=== PATIENT | male | born 1985 | race American Indian/Alaskan Native ===

== ENCOUNTER 2018-12-27 10:54 | Emergency (ER) | payer OTHER ==
[2018-12-27 11:02] VITALS: BP 122/80
--- NOTE | 2018-12-27 11:23 | Emergency Department Report ---
ED Laceration HPI - HPI Chief Complaint: Wound/Laceration Stated Complaint: L ELBOW CUT Time Seen by Provider: 12/27/18 11:21 Occurred When: Today Location: Upper Extremity Severity: moderate Tetanus Status: Not up to Date Laceration Symptoms: No Foreign Body Sensation, No Numbness, No Weakness, No Pain Other History: hit by piece of metal at work. lac to L elbow. tetanus not UTD ED Review of Systems ROS: Stated complaint: L ELBOW CUT Other details as noted in HPI Comment: All other systems reviewed and negative ED Past Medical Hx - Past Medical History Previous Medical History?: No - Surgical History Past Surgical History?: No - Social History Smoking Status: Current Every Day Smoker Substance Use Type: Alcohol - Medications Home Medications: Home Medications Medication Instructions Recorded Confirmed Last Taken Type ALBUTEROL Inhaler (OR & NICU) 2 puff IH QID PRN #1 inhalation 02/06/14 Unknown Rx [ProAir HFA Inhaler] Azithromycin [Zithromax TAB] 500 mg PO QDAY #5 tablet 02/06/14 Unknown Rx guaiFENesin/CODEINE [Robitussin AC] 5 ml PO Q6H PRN #120 ml 02/06/14 Unknown Rx cephALEXin [Keflex] 500 mg PO Q8HR #21 cap 12/27/18 Unknown Rx Laceration Physical Exam - Exam General: Vital signs noted. No distress. Alert and acting appropriately. Wound Length (cm): 2 Laceration Location: Upper Extremity (L olecranon) Laceration Exam: Yes Normal Distal CMS, No Foreign Body, No Exposed Tendon, Vessel, or Nerve, No Tendon Injury ED Course Vital Signs 12/27/18 11:00 Temperature 98.7 F Pulse Rate 78 Respiratory 16 Rate Blood Pressure 122/80 [Right] - Laceration /Wound Repair L elbow Wound Location: upper extremity (L elbow) Wound Length (cm): 2 Wound's Depth, Shape: superficial, linear Wound Explored: clean Irrigated w/ Saline (ccs): 1,000 Betadine Prep?: Yes Anesthesia: Lidocaine w/ Epi Volume Anesthetic (ccs): 2 Wound Debrided: minimal Wound Repaired With: sutures Suture Size/Type: 4:0, proline Number of Sutures: 5 Layer Closure?: No Sterile Dressing Applied?: Yes Progress: tolerated well ED Medical Decision Making - Radiology Data Radiology results: image reviewed interpreted by me: abraham in L elbow - Medical Decision Making lac- imaging ordered neg as read by me fu pcp, 2w suture removal - Differential Diagnosis lac, fb Critical care attestation.: If time is entered above; I have spent that time in minutes in the direct care of this critically ill patient, excluding procedure time. ED Disposition Clinical Impression: Laceration Disposition: DC-01 TO HOME OR SELFCARE Is pt being admited?: No Condition: Good Instructions: Laceration (ED), Suture Care (ED) Prescriptions: cephALEXin [Keflex] 500 mg PO Q8HR #21 cap Referrals: [facility] [Other] - 3-5 Days Time of Disposition: 11:54
[2018-12-27] MEDS ORDERED: BOOSTRIX IM ONE (11:25)
[2018-12-27] MEDS ORDERED: XYLOCAINE 2%/ EPI 1:200,000 INFILTRATI ONE (11:38)
[2018-12-27] MEDS ORDERED: XYLOCAINE 1%/ EPI 1:100,000 INFILTRATI NR (12:00)
--- NOTE | 2018-12-27 12:08 | XRay Report ---
LEFT ELBOW, 3 views: History: Laceration from metal object. The bony architecture is intact without evidence of fracture or dislocation. Multiple tiny punctate foreign bodies are identified in the posterior medial soft tissues which is best demonstrated on the oblique image IMPRESSION: Multiple tiny foreign bodies in the posteromedial soft tissues. No osseous abnormality detected.
== END 2018-12-27 12:07 | disposition home or self-care (01) ==
LOC: ED 10:54
DX: S51.012A Laceration without foreign body of left elbow, initial encounter (principal); F17.200 Nicotine dependence, unspecified, uncomplicated; W45.8XXA Other foreign body or object entering through skin, initial encounter; Y93.89 Activity, other specified; Y92.69 Other specified industrial and construction area as the place of occurrence of the external cause; Y99.0 Civilian activity done for income or pay
CPT/HCPCS: 90471; 90715; 99283

== ENCOUNTER 2019-01-11 13:34 | Emergency (ER) | payer SELFPAY ==
--- NOTE | 2019-01-11 14:43 | Emergency Department Report ---
Suture/Staple Removal - HPI Chief Complaint: Laceration/Recheck/Suture Stated Complaint: REMOVE SUTURES Time Seen by Provider: 01/11/19 14:15 When Sutures or Simon Placed: 12/27/18 Wound Location: left elbow ED Review of Systems ROS: Stated complaint: REMOVE SUTURES Other details as noted in HPI Comment: All other systems reviewed and negative ED Past Medical Hx - Past Medical History Previous Medical History?: No - Surgical History Past Surgical History?: No - Social History Smoking Status: Current Every Day Smoker Substance Use Type: Alcohol - Medications Home Medications: Home Medications Medication Instructions Recorded Confirmed Last Taken Type ALBUTEROL Inhaler (OR & NICU) 2 puff IH QID PRN #1 inhalation 02/06/14 Unknown Rx [ProAir HFA Inhaler] Azithromycin [Zithromax TAB] 500 mg PO QDAY #5 tablet 02/06/14 Unknown Rx guaiFENesin/CODEINE [Robitussin AC] 5 ml PO Q6H PRN #120 ml 02/06/14 Unknown Rx cephALEXin [Keflex] 500 mg PO Q8HR #21 cap 12/27/18 Unknown Rx Suture Removal Exam - Exam General: Vital signs noted. No distress. Alert and acting appropriately. Wound: No Pathologic Erythema, No Tenderness, No Drainage, No Pus, No Wound Dehiscence Other Systems: All other systems reviewed and are unremarkable. left elbow with well healed laceration, it is clean, dry, intact without any signs of infection, no wound dehiscence, sutures in place, no erythema, no drainage, no TTP of the left elbow, FROM of the left elbow, neurovascularly intact ED Recheck MDM - Medical Decision Making Pt is a 33 yo male who presents to the ED for suture removal. He states that a piece of steel cut his arm while at work on 12/27 and he was evaluated in the ED and had sutures placed. He denies any issues. He denies any fever, drainage, pain. pt received a tetanus immunization on 12/27 per pt. he states he did not take any of the abx prescribed but did not have any issues at all. all sutures were removed, pt tolerated well, no bleeding, wound is well healed. Critical care attestation.: If time is entered above; I have spent that time in minutes in the direct care of this critically ill patient, excluding procedure time. ED Disposition Clinical Impression: Encounter for removal of sutures Disposition: DC-01 TO HOME OR SELFCARE Is pt being admited?: No Does the pt Need Aspirin: No Condition: Stable Instructions: Suture Removal (ED) Additional Instructions: Please continue to keep area clean and dry. follow up with a primary care doctor in the next 2-3 days. return to the emergency room for any new or worsening symptoms. Referrals: MICHEL HOUSER MD [Primary Care Provider] - 2-3 Days [facility] [Outside] - 2-3 Days Time of Disposition: 14:42 Print Language: UPPER SORBIAN
== END 2019-01-11 15:20 | disposition home or self-care (01) ==
LOC: ED 13:34
DX: Z48.01 Encounter for change or removal of surgical wound dressing (principal); Z53.21 Procedure and treatment not carried out due to patient leaving prior to being seen by health care provider

== ENCOUNTER 2021-02-05 15:11 | Inpatient (IN) | payer OTHER ==
[2021-02-05] MEDS ORDERED: SODIUM CHLORIDE 0.9% 500 ML 500 ML IV ONE (15:28)
--- NOTE | 2021-02-05 16:05 | XRay Report ---
CHEST 2 VIEWS INDICATION / CLINICAL INFORMATION: Possible sepsis. COMPARISON: None available. FINDINGS: SUPPORT DEVICES: None. HEART / MEDIASTINUM: No significant abnormality. LUNGS / PLEURA: No significant pulmonary abnormality. No significant pleural effusion. No pneumothora x. ADDITIONAL FINDINGS: No significant additional findings. IMPRESSION: 1. No acute abnormality of the chest. Signer Name: Marcial Willis MD Signed: 02/05/2021 4:01 PM Workstation Name: [id number]
[2021-02-05 16:10] LABS: Basophils # (Auto) 0.1 K/mm3 (0.0-0.1); Basophils % (Auto) 0.6 % (0.0-1.8); Eosinophils # (Auto) 0.1 K/mm3 (0.0-0.4); Eosinophils % (Auto) 0.5 % (0.0-4.3); Hematocrit 40.8 % (35.5-45.6); Hemoglobin 13.6 gm/dl (11.8-15.2); Lymphocytes # (Auto) 1.8 K/mm3 (1.2-5.4); Lymphocytes % (Auto) 11.9 % (13.4-35.0); Mean Corpuscular HGB Conc 33 % (32-34); Mean Corpuscular Volume 107 fl (84-94); Monocytes % (Auto) 6.5 % (0.0-7.3); Platelet Count 155 K/mm3 (140-440); Red Blood Count 3.81 M/mm3 (3.65-5.03); Red Cell Distribution Width 16.9 % (13.2-15.2)
[2021-02-05 16:33] LABS: INR 1.11 (0.87-1.13)
[2021-02-05 16:34] LABS: Alanine Aminotransferase 37 units/L (7-56); Albumin 4.1 g/dL (3.9-5); Blood Urea Nitrogen 5 mg/dL (9-20); Calcium 9.6 mg/dL (8.4-10.2); Hemolysis Index 17
[2021-02-05 16:39] LABS: BUN/Creatinine Ratio 17
[2021-02-05] MEDS ORDERED: cefTRIAXone/NS 1 GM/50 ML 1 GM/50 ML BAG IV ONE (17:07)
--- NOTE | 2021-02-05 17:09 | Emergency Department Report ---
ED Chest Pain HPI - General Chief Complaint: Chest Pain Stated Complaint: CHEST PAIN, SWOLLEN FEET FACE Time Seen by Provider: 02/05/21 16:24 Source: patient Mode of arrival: Wheelchair Limitations: No Limitations - History of Present Illness Initial Comments: This is a 35-year-old -[place] male who presents to the emergency department with multiple complaints. Patient has generalized chest discomfort, abdominal fullness and distention without significant pain, swelling of the face and feet, bilateral foot pain that have been going on for "a while." Overall the symptoms have been going on since late December but have worsened recently. The patient is a tobacco smoker but denies any illicit drug use. He does admit to daily alcohol use, but is currently working with his PCP to decrease his alcohol intake slowly and avoid any significant withdrawal. Patient says that he has been evaluated in the recent past by [facility] but does not know any particular diagnosis or the reason for his symptoms. He does admit to a history of peripheral neuropathy. The patient presented through triage with a low-grade fever of 100.2 F and some tachycardia with a heart rate of about 130 and a code sepsis was initiated. - Related Data Previous Rx's Medication Instructions Recorded Last Taken Type Albuterol Mdi (or & Nicu Only) 2 puff IH QID PRN #1 inhalation 02/06/14 Unknown Rx [ProAir HFA Inhaler] Azithromycin [Zithromax TAB] 500 mg PO QDAY #5 tablet 02/06/14 Unknown Rx guaiFENesin/CODEINE [Robitussin AC] 5 ml PO Q6H PRN #120 ml 02/06/14 Unknown Rx cephALEXin [Keflex] 500 mg PO Q8HR #21 cap 12/27/18 Unknown Rx Allergies Allergy/AdvReac Type Severity Reaction Status Date / Time No Known Allergies Allergy Verified 01/11/19 13:36 Heart Score - HEART Score History: Slightly suspicious EKG: Normal Age: < 45 Risk factors: 1-2 risk factors Troponin: < normal limit HEART Score: 1 - EKG Read Time Time EKG Completed: 15:29 EKG Read Time: 15:30 - Critical Actions Critical Actions: 0-3 pts:0.9-1.7%risk of adverse cardiac event.Candidate for discharge ED Review of Systems ROS: Stated complaint: CHEST PAIN, SWOLLEN FEET FACE Other details as noted in HPI ED Past Medical Hx - Past Medical History Previous Medical History?: No - Social History Smoking Status: Current Every Day Smoker Substance Use Type: Alcohol - Medications Home Medications: Home Medications Medication Instructions Recorded Confirmed Last Taken Type Albuterol Mdi (or & Nicu Only) 2 puff IH QID PRN #1 inhalation 02/06/14 Unknown Rx [ProAir HFA Inhaler] Azithromycin [Zithromax TAB] 500 mg PO QDAY #5 tablet 02/06/14 Unknown Rx guaiFENesin/CODEINE [Robitussin AC] 5 ml PO Q6H PRN #120 ml 02/06/14 Unknown Rx cephALEXin [Keflex] 500 mg PO Q8HR #21 cap 12/27/18 Unknown Rx ED Physical Exam - General Limitations: No Limitations - Other Other exam information: GENERAL: The patient is ill-appearing. HENT: Normocephalic. Atraumatic. Patient has moist mucous membranes. EYES: Extraocular motions are intact. Pupils equal reactive to light bilaterally. NECK: Supple. Trachea is midline. CHEST/LUNGS: Clear to auscultation. There is no respiratory distress noted. HEART/CARDIOVASCULAR: Regular. There is moderate tachycardia. There is no murmur. ABDOMEN: Abdomen is firm and distended, worse on the right side of the abdomen. No tenderness to palpation. Patient has normal bowel sounds. SKIN: Skin is warm and dry. There is some generalized but mild lower facial swelling. Some nonpitting swelling to the bilateral feet. NEURO: The patient appears sleepy but is easily arousable. He is a alert and oriented. The patient is cooperative. Cranial nerves II through XII grossly intact. Normal speech. MUSCULOSKELETAL: There is no tenderness or deformity. There is no limitation range of motion. ED Course Vital Signs 02/05/21 02/05/21 02/05/21 15:24 17:31 18:01 Temperature 100.2 F H Pulse Rate 130 H 115 H 116 H Respiratory 24 21 18 Rate Blood Pressure 148/91 145/90 Blood Pressure 130/86 [Right] O2 Sat by Pulse 96 93 93 Oximetry 02/05/21 02/05/21 02/05/21 18:31 18:48 19:01 Temperature Pulse Rate 114 H 110 H 118 H Respiratory 18 20 20 Rate Blood Pressure 148/91 142/64 135/94 Blood Pressure [Right] O2 Sat by Pulse 94 97 93 Oximetry NILE score - Nile Score Age > 65: (0) No Aspirin use within the Past 7 Days: (0) No 3 or more CAD Risk Factors: (0) No 2 or more Angina events in past 24 hrs: (1) Yes Known CAD with more than 50% Stenosis: (0) No Elevated Cardiac Markers: (0) No ST Deviation Greater than 0.5mm: (0) No NILE Score: 1 ED Medical Decision Making - Lab Data Result diagrams: 02/05/21 15:33 02/05/21 15:33 Lab Results 02/05/21 02/05/21 02/05/21 Range/Units 15:33 15:33 15:33 WBC 15.3 H (4.5-11.0) K/mm3 RBC 3.81 (3.65-5.03) M/mm3 Hgb 13.6 (11.8-15.2) gm/dl Hct 40.8 (35.5-45.6) % MCV 107 H (84-94) fl MCH 36 H (28-32) pg MCHC 33 (32-34) % RDW 16.9 H (13.2-15.2) % Plt Count 155 (140-440) K/mm3 Lymph % (Auto) 11.9 L (13.4-35.0) % Bureau % (Auto) 6.5 (0.0-7.3) % Eos % (Auto) 0.5 (0.0-4.3) % Baso % (Auto) 0.6 (0.0-1.8) % Lymph # (Auto) 1.8 (1.2-5.4) K/mm3 Bureau # (Auto) 1.0 H (0.0-0.8) K/mm3 Eos # (Auto) 0.1 (0.0-0.4) K/mm3 Baso # (Auto) 0.1 (0.0-0.1) K/mm3 Seg Neutrophils % 80.5 H (40.0-70.0) % Seg Neutrophils # 12.3 H (1.8-7.7) K/mm3 PT 14.9 (12.2-14.9) Sec. INR 1.11 (0.87-1.13) D-Dimer (0-234) ng/mlDDU VBG pH (7.320-7.420) Sodium 140 (137-145) mmol/L Potassium 3.6 (3.6-5.0) mmol/L Chloride 97.6 L (98-107) mmol/L Carbon Dioxide 24 (22-30) mmol/L Anion Gap 22 mmol/L BUN 5 L (9-20) mg/dL Creatinine 0.3 L (0.8-1.3) mg/dL Estimated GFR > 60 ml/min BUN/Creatinine Ratio 17 % Glucose 129 H (75-100) mg/dL Lactic Acid (0.7-2.0) mmol/L Calcium 9.6 (8.4-10.2) mg/dL Total Bilirubin 1.80 H (0.1-1.2) mg/dL AST 177 H (5-40) units/L ALT 37 (7-56) units/L Alkaline Phosphatase 433 H (35-129) units/L Troponin T < 0.010 (0.00-0.029) ng/mL NT-Pro-B Natriuret Pep (0-450) pg/mL Total Protein 7.9 (6.3-8.2) g/dL Albumin 4.1 (3.9-5) g/dL Albumin/Globulin Ratio 1.1 % Plasma/Serum Alcohol (0-0.07) % 02/05/21 02/05/21 02/05/21 Range/Units 15:33 15:33 15:33 WBC (4.5-11.0) K/mm3 RBC (3.65-5.03) M/mm3 Hgb (11.8-15.2) gm/dl Hct (35.5-45.6) % MCV (84-94) fl MCH (28-32) pg MCHC (32-34) % RDW (13.2-15.2) % Plt Count (140-440) K/mm3 Lymph % (Auto) (13.4-35.0) % Bureau % (Auto) (0.0-7.3) % Eos % (Auto) (0.0-4.3) % Baso % (Auto) (0.0-1.8) % Lymph # (Auto) (1.2-5.4) K/mm3 Bureau # (Auto) (0.0-0.8) K/mm3 Eos # (Auto) (0.0-0.4) K/mm3 Baso # (Auto) (0.0-0.1) K/mm3 Seg Neutrophils % (40.0-70.0) % Seg Neutrophils # (1.8-7.7) K/mm3 PT (12.2-14.9) Sec. INR (0.87-1.13) D-Dimer 153.28 (0-234) ng/mlDDU VBG pH 7.472 H (7.320-7.420) Sodium (137-145) mmol/L Potassium (3.6-5.0) mmol/L Chloride (98-107) mmol/L Carbon Dioxide (22-30) mmol/L Anion Gap mmol/L BUN (9-20) mg/dL Creatinine (0.8-1.3) mg/dL Estimated GFR ml/min BUN/Creatinine Ratio % Glucose (75-100) mg/dL Lactic Acid 2.90 H* (0.7-2.0) mmol/L Calcium (8.4-10.2) mg/dL Total Bilirubin (0.1-1.2) mg/dL AST (5-40) units/L ALT (7-56) units/L Alkaline Phosphatase (35-129) units/L Troponin T (0.00-0.029) ng/mL NT-Pro-B Natriuret Pep (0-450) pg/mL Total Protein (6.3-8.2) g/dL Albumin (3.9-5) g/dL Albumin/Globulin Ratio % Plasma/Serum Alcohol (0-0.07) % 02/05/21 02/05/21 02/05/21 Range/Units 15:33 18:02 19:09 WBC (4.5-11.0) K/mm3 RBC (3.65-5.03) M/mm3 Hgb (11.8-15.2) gm/dl Hct (35.5-45.6) % MCV (84-94) fl MCH (28-32) pg MCHC (32-34) % RDW (13.2-15.2) % Plt Count (140-440) K/mm3 Lymph % (Auto) (13.4-35.0) % Bureau % (Auto) (0.0-7.3) % Eos % (Auto) (0.0-4.3) % Baso % (Auto) (0.0-1.8) % Lymph # (Auto) (1.2-5.4) K/mm3 Bureau # (Auto) (0.0-0.8) K/mm3 Eos # (Auto) (0.0-0.4) K/mm3 Baso # (Auto) (0.0-0.1) K/mm3 Seg Neutrophils % (40.0-70.0) % Seg Neutrophils # (1.8-7.7) K/mm3 PT (12.2-14.9) Sec. INR (0.87-1.13) D-Dimer (0-234) ng/mlDDU VBG pH (7.320-7.420) Sodium (137-145) mmol/L Potassium (3.6-5.0) mmol/L Chloride (98-107) mmol/L Carbon Dioxide (22-30) mmol/L Anion Gap mmol/L BUN (9-20) mg/dL Creatinine (0.8-1.3) mg/dL Estimated GFR ml/min BUN/Creatinine Ratio % Glucose (75-100) mg/dL Lactic Acid 1.90 (0.7-2.0) mmol/L Calcium (8.4-10.2) mg/dL Total Bilirubin (0.1-1.2) mg/dL AST (5-40) units/L ALT (7-56) units/L Alkaline Phosphatase (35-129) units/L Troponin T (0.00-0.029) ng/mL NT-Pro-B Natriuret Pep 5.14 (0-450) pg/mL Total Protein (6.3-8.2) g/dL Albumin (3.9-5) g/dL Albumin/Globulin Ratio % Plasma/Serum Alcohol < 0.01 (0-0.07) % - EKG Data -: EKG Interpreted by De EKG shows normal: sinus rhythm, axis, intervals, QRS complexes, ST-T waves Rate: tachycardia (124 bpm) - EKG Data When compared to previous EKG there are: previous EKG unavailable Interpretation: other (Sinus tachycardia at 124 bpm, normal axis, normal intervals. No ST elevation OR) - Radiology Data Radiology results: report reviewed, image reviewed interpreted by me: Chest x-ray does not show any acute process. There are no pleural effusions, obvious pneumonia and there is no pneumothorax. CT ABDOMEN AND PELVIS WITH CONTRAST HISTORY: Abd pain and distention, abnormal LFTs, pain [id number] 100ml. COMPARISON: None. TECHNIQUE: CT images of the abdomen and pelvis were obtained following administration of intravenous contrast. All CT scans at this location are performed using CT dose reduction for ALARA by means of automated exposure control. CONTRAST: 100 ml of intravenous contrast administered. FINDINGS: Lungs/bones: There is mild patchy groundglass airspace disease throughout the lung bases and the right middle lobe. No acute osseous abnormality or malalignment. Abdomen/pelvis: There is marked hepatomegaly with moderate hepatic steatosis. No focal liver lesion identified. The gallbladder, spleen, pancreas, adrenals, kidneys, and proximal GI tract appear unremarkable. Urinary bladder and prostate are normal with no pelvic free fluid and no acute colonic abnormality identified. IMPRESSION: 1. Markedly hepatomegaly with moderate hepatic steatosis. 2. Patchy groundglass airspace disease in the lungs. Correlate for atypical infectious/inflammatory etiology. - Medical Decision Making This patient presents to the emergency department with a complaint of some chest pain, shortness of breath, facial and foot swelling, abdominal fullness and distention, some nausea with vomiting. On examination the patient appears tremulous. He is sleepy but easily arousable. Once awake he is oriented, AAO x3. No focal, motor or sensory deficits and his cranial nerves are intact. Patient does have a firm and distended abdomen, worst on the right side. There is some mild lower facial nonpitting swelling and some mild swelling to the feet. He does not appear in any respiratory distress. EKG does not have any morphology consistent ST elevation myocardial infarction. Chest x-ray does not show any pneumonia, pleural effusions, pneumothorax, focal consolidation, widened mediastinum, or any other acute process. The patient's labs shows some elevation in the AST, elevated bilirubin, elevated alk phos, a leukocytosis of 15,000, and an initial lactic acidosis. Patient had a CT scan of the abdomen and pelvis with IV contrast that shows severe hepatomegaly and hepatic steatosis. It was also read that the patient has some bilateral patchy groundglass opacities. The patient is a daily alcohol drinker. He was placed on the CIWA protocol and began receiving Ativan. However, the patient's withdrawal appears to have worsened during his ED course. The tachycardia remains. The patient is becoming more confused and has started to hallucinate. The patient has a CIWA score greater than 25. All this together is concerning for delirium tremens and the patient will be admitted to the ICU. Accepted for admission by the Dr. Holley flores. Critical Care Time: No Critical care attestation.: If time is entered above; I have spent that time in minutes in the direct care of this critically ill patient, excluding procedure time. ED Disposition Clinical Impression: Delirium tremens, Steatosis of liver Sepsis Qualifiers: Sepsis type: sepsis due to unspecified organism Sepsis acute organ dysfunction status: unspecified Qualified Code(s): A41.9 - Sepsis, unspecified organism Pneumonia Qualifiers: Pneumonia type: due to unspecified organism Laterality: unspecified laterality Lung location: unspecified part of lung Qualified Code(s): J18.9 - Pneumonia, unspecified organism Disposition: 09 OP ADMIT IP TO THIS HOSP Is pt being admited?: Yes Condition: Serious Instructions: Bacterial Pneumonia (ED) Time of Disposition: 18:50
[2021-02-05] MEDS: LORazepam 2 MG/ML VIAL IV PRN ×3 (18:09→21:13)
--- NOTE | 2021-02-05 18:43 | Cat Scan Report ---
CT ABDOMEN AND PELVIS WITH CONTRAST HISTORY: Abd pain and distention, abnormal LFTs, pain [id number] 100ml. COMPARISON: None. TECHNIQUE: CT images of the abdomen and pelvis were obtained following administration of intravenous contrast. All CT scans at this location are performed using CT dose reduction for ALARA by means of automated exposure control. CONTRAST: 100 ml of intravenous contrast administered. FINDINGS: Lungs/bones: There is mild patchy groundglass airspace disease throughout the lung bases and the rig ht middle lobe. No acute osseous abnormality or malalignment. Abdomen/pelvis: There is marked hepatomegaly with moderate hepatic steatosis. No focal liver lesion identified. The gallbladder, spleen, pancreas, adrenals, kidneys, and proximal GI tract appear unrema rkable. Urinary bladder and prostate are normal with no pelvic free fluid and no acute colonic abnormality id entified. IMPRESSION: 1. Markedly hepatomegaly with moderate hepatic steatosis. 2. Patchy groundglass airspace disease in the lungs. Correlate for atypical infectious/inflammatory e tiology. Signer Name: Timothy Glez MD Signed: 02/05/2021 6:39 PM Workstation Name: [id number]
[2021-02-05] MEDS ORDERED: AZITHROMYCIN/NS 500 MG/250 ML 500 MG/250 ML BAG IV ONE (18:48)
[2021-02-05] MEDS ORDERED: THIAMINE 100 MG, FOLIC ACID 1 MG, MULTIPLE VITAMIN INJ, ADULT 10 ML in SODIUM CHLORIDE ... IV ONE (19:10)
[2021-02-05] MEDS ORDERED: LORazepam 2 MG/ML VIAL IV PRN (20:03)
[2021-02-05] MEDS ORDERED: ALBUTEROL 8.5 GM MDI INHALATION IH PRN (20:31)
[2021-02-05] MEDS ORDERED: ACETAMINOPHEN 325 MG TAB PO PRN (20:32)
[2021-02-05] MEDS ORDERED: ONDANSETRON 4 MG/2 ML INJ IV PRN (20:32)
[2021-02-05] MEDS ORDERED: METOCLOPRAMIDE 10 MG/2 ML INJ IV PRN (20:33)
[2021-02-05] MEDS ORDERED: ALBUTEROL 2.5 MG/3 ML NEBU IH PRN (20:44)
[2021-02-05] MEDS ORDERED: D5W/0.9% NACL 1,000 ML IV SCH (21:00)
[2021-02-05] MEDS: FAMOTIDINE 20 MG/2 ML INJ IV SCH (22:10)
--- NOTE | 2021-02-06 07:07 | History and Physical Report ---
History of Present Illness Date of examination: 02/05/21 Date of admission: 02/05/21 18:50 Chief complaint: Chest discomfort, abdominal distention and shortness of breath for 3 to 4 days History of present illness: 35-year-old male with no significant past medical history comes in for chest tightness and shortness of breath and abdominal distention. Patient states is getting tired easily. Patient is being treated for peripheral neuropathy for bilateral foot pain. Patient is a regular smoker about half a pack a day. Patient had a low-grade fever of 100.2 and 70 during triage room. No exposure to coronavirus. - Past Medical History Previous Medical History?: No -surgical history - No - Social History Smoking Status: Current Every Day Smoker Substance Use Type: Alcohol use on a regular basis - Medications Home Medications: Home Medications Medication Instructions Recorded Confirmed Last Taken Type Albuterol Mdi (or & Nicu Only) 2 puff IH QID PRN #1 inhalation 02/06/14 Unknown Rx [ProAir HFA Inhaler] Azithromycin [Zithromax TAB] 500 mg PO QDAY #5 tablet 02/06/14 Unknown Rx guaiFENesin/CODEINE [Robitussin AC] 5 ml PO Q6H PRN #120 ml 02/06/14 Unknown Rx cephALEXin [Keflex] 500 mg PO Q8HR #21 cap 12/27/18 Unknown Rx Review of Systems ROS: Constitutional no weight loss or weight gain no fever or chills HEENT no sore throat no post nasal drip no diplopia Neck no neck stiffness no lymph gland enlargement Chest and lungs shortness of breath and chest tightness CVS no chest pain no diaphoresis no palpitations GI no nausea no vomiting no diarrhea Genitourinary system no dysuria no flank pain Musculoskeletal system no muscle pains no joint pains [employer] no syncope no seizures Skin no rash no itching Psychiatric no depression no homicidal or suicidal tendencies Hematologic no lymphedema or bruising Endocrine no polydipsia no polyuria no cold intolerance no heat intolerance Medications and Allergies Allergies Allergy/AdvReac Type Severity Reaction Status Date / Time No Known Allergies Allergy Verified 01/11/19 13:36 Home Medications Medication Instructions Recorded Confirmed Last Taken Type Albuterol Mdi (or & Nicu Only) 2 puff IH QID PRN #1 inhalation 02/06/14 Unknown Rx [ProAir HFA Inhaler] Azithromycin [Zithromax TAB] 500 mg PO QDAY #5 tablet 02/06/14 Unknown Rx guaiFENesin/CODEINE [Robitussin AC] 5 ml PO Q6H PRN #120 ml 02/06/14 Unknown Rx cephALEXin [Keflex] 500 mg PO Q8HR #21 cap 12/27/18 Unknown Rx Active Meds: Active Medications Acetaminophen (Acetaminophen 325 Mg Tab) 650 mg PO Q4H PRN PRN Reason: Pain MILD(1-3)/Fever >100.5/JOVEL Albuterol (Albuterol 2.5 Mg/3 Ml Nebu) 2.5 mg IH Q4HRT PRN PRN Reason: Shortness Of Breath Famotidine (Famotidine 20 Mg/2 Ml Inj) 20 mg IV BID [facility] Last Admin: 02/05/21 22:10 Dose: 20 mg Documented by: Dextrose/Sodium Chloride (D5ns) 1,000 mls @ 75 mls/hr IV DIRECT [facility] Stop: 02/06/21 08:00 Lorazepam (Lorazepam 2 Mg/Ml Vial) 2 mg IV Q1HR PRN PRN Reason: CIWA-Ar 8-15 Last Admin: 02/05/21 21:13 Dose: 2 mg Documented by: Metoclopramide HCl (Metoclopramide 10 Mg/2 Ml Inj) 10 mg IV Q6H PRN PRN Reason: Nausea And Vomiting Morphine Sulfate (Morphine 2 Mg/1 Ml Inj) 2 mg IV Q4H PRN PRN Reason: Pain, Moderate (4-6) Ondansetron HCl (Ondansetron 4 Mg/2 Ml Inj) 4 mg IV Q8H PRN PRN Reason: Nausea And Vomiting Sodium Chloride (Sodium Chloride 0.9% 10 Ml Flush Syringe) 10 ml IV BID [facility] Last Admin: 02/05/21 22:10 Dose: 10 ml Documented by: Sodium Chloride (Sodium Chloride 0.9% 10 Ml Flush Syringe) 10 ml IV PRN PRN PRN Reason: LINE FLUSH Exam - Constitutional Vitals: Temp Pulse Resp BP Pulse Ox 98.0 F 104 H 20 139/92 92 02/06/21 04:32 02/06/21 04:32 02/06/21 04:32 02/06/21 04:32 02/06/21 04:32 General appearance: Present: no acute distress, well-nourished - EENT Eyes: Present: PERRL ENT: hearing intact, clear oral mucosa - Neck Neck: Present: supple, normal ROM - Respiratory Respiratory effort: normal Respiratory: bilateral: CTA, rhonchi (Scattered) - Cardiovascular Heart rate: 78 Rhythm: regular Heart Sounds: Present: S1 & S2. Absent: rub, click - Extremities Extremities: pulses symmetrical, No edema Peripheral Pulses: within normal limits - Abdominal General gastrointestinal: Present: soft, non-tender, non-distended, normal bowel sounds Male genitourinary: Present: normal - Integumentary Integumentary: Present: clear, warm, dry - Musculoskeletal Musculoskeletal: gait normal, strength equal bilaterally - Psychiatric Psychiatric: appropriate mood/affect, intact judgment & insight - Neurologic Neurologic: CNII-XII intact, moves all extremities HEART Score - HEART Score EKG: Normal Age: < 45 Risk factors: 1-2 risk factors Troponin: Troponin T < 0.010 ng/mL (0.00-0.029) 02/05/21 15:33 Troponin: < normal limit - Critical Actions Critical Actions: 0-3 pts:0.9-1.7%risk of adverse cardiac event.Candidate for discharge Results - Labs CBC & Chem 7: 02/05/21 15:33 02/05/21 15:33 Labs: Laboratory Last Values WBC 15.3 K/mm3 (4.5-11.0) H 02/05/21 15:33 RBC 3.81 M/mm3 (3.65-5.03) 02/05/21 15:33 Hgb 13.6 gm/dl (11.8-15.2) 02/05/21 15:33 Hct 40.8 % (35.5-45.6) 02/05/21 15:33 MCV 107 fl (84-94) H 02/05/21 15:33 MCH 36 pg (28-32) H 02/05/21 15:33 MCHC 33 % (32-34) 02/05/21 15:33 RDW 16.9 % (13.2-15.2) H 02/05/21 15:33 Plt Count 155 K/mm3 (140-440) 02/05/21 15:33 Lymph % (Auto) 11.9 % (13.4-35.0) L 02/05/21 15:33 [place] % (Auto) 6.5 % (0.0-7.3) 02/05/21 15:33 Eos % (Auto) 0.5 % (0.0-4.3) 02/05/21 15:33 Baso % (Auto) 0.6 % (0.0-1.8) 02/05/21 15:33 Lymph # (Auto) 1.8 K/mm3 (1.2-5.4) 02/05/21 15:33 [place] # (Auto) 1.0 K/mm3 (0.0-0.8) H 02/05/21 15:33 Eos # (Auto) 0.1 K/mm3 (0.0-0.4) 02/05/21 15:33 Baso # (Auto) 0.1 K/mm3 (0.0-0.1) 02/05/21 15:33 Seg Neutrophils % 80.5 % (40.0-70.0) H 02/05/21 15:33 Seg Neutrophils # 12.3 K/mm3 (1.8-7.7) H 02/05/21 15:33 PT 14.9 Sec. (12.2-14.9) 02/05/21 15:33 INR 1.11 (0.87-1.13) 02/05/21 15:33 D-Dimer 153.28 ng/mlDDU (0-234) 02/05/21 15:33 VBG pH 7.472 (7.320-7.420) H 02/05/21 15:33 Sodium 140 mmol/L (137-145) 02/05/21 15:33 Potassium 3.6 mmol/L (3.6-5.0) 02/05/21 15:33 Chloride 97.6 mmol/L (98-107) L 02/05/21 15:33 Carbon Dioxide 24 mmol/L (22-30) 02/05/21 15:33 Anion Gap 22 mmol/L 02/05/21 15:33 BUN 5 mg/dL (9-20) L 02/05/21 15:33 Creatinine 0.3 mg/dL (0.8-1.3) L 02/05/21 15:33 Estimated GFR > 60 ml/min 02/05/21 15:33 BUN/Creatinine Ratio 17 % 02/05/21 15:33 Glucose 129 mg/dL (75-100) H 02/05/21 15:33 Lactic Acid 1.90 mmol/L (0.7-2.0) 02/05/21 18:02 Calcium 9.6 mg/dL (8.4-10.2) 02/05/21 15:33 Total Bilirubin 1.80 mg/dL (0.1-1.2) H 02/05/21 15:33 AST 177 units/L (5-40) H 02/05/21 15:33 ALT 37 units/L (7-56) 02/05/21 15:33 Alkaline Phosphatase 433 units/L (35-129) H 02/05/21 15:33 Troponin T < 0.010 ng/mL (0.00-0.029) 02/05/21 15:33 NT-Pro-B Natriuret Pep 5.14 pg/mL (0-450) 02/05/21 15:33 Total Protein 7.9 g/dL (6.3-8.2) 02/05/21 15:33 Albumin 4.1 g/dL (3.9-5) 02/05/21 15:33 Albumin/Globulin Ratio 1.1 % 02/05/21 15:33 Plasma/Serum Alcohol < 0.01 % (0-0.07) 02/05/21 19:09 Microbiology: Microbiology 02/05/21 15:33 Peripheral/Venous Blood Culture - Preliminary Culture in Progress 02/05/21 15:39 Peripheral/Venous Blood Culture - Preliminary Culture in Progress - Imaging and Cardiology Chest x-ray: report reviewed (No acute findings) Imaging and Cardiology: Abdominal CAT scan Marked hepatomegaly with moderate hepatic steatosis Patchy groundglass airspace disease in the lungs Correlate for atypical infectious/inflammatory etiology Assessment and Plan Advance Directives: Yes (Full code) VTE prophylaxis?: Chemical Plan of care discussed with patient/family: Yes - Patient Problems (1) Bilateral pneumonia Current Visit: Yes Status: Acute Plan to address problem: "Coronavirus pneumonia to be ruled out Bilateral pneumonia/pulmonary opacities on the abdominal CAT scan Coronavirus PCR IV Zithromax and IV ceftriaxone for now (2) Transaminitis Current Visit: Yes Status: Acute Plan to address problem: Secondary to EtOH use Hepatitis profile requested (3) EtOH dependence Current Visit: Yes Status: Chronic Qualifiers: Substance use status: uncomplicated Qualified Code(s): F10.20 - Alcohol dependence, uncomplicated Plan to address problem: Patient initiated on CIWA protocol (4) DVT prophylaxis Current Visit: Yes Status: Acute Plan to address problem: On heparin and GI prophylaxis
[2021-02-06] MEDS ORDERED: ALBUTEROL 8.5 GM MDI INHALATION IH PRN (07:21)
[2021-02-06 09:07] LABS: Basophils # (Auto) 0.1 K/mm3 (0.0-0.1); Basophils % (Auto) 1.2 % (0.0-1.8); Eosinophils # (Auto) 0.2 K/mm3 (0.0-0.4); Eosinophils % (Auto) 1.7 % (0.0-4.3); Hematocrit 39.5 % (35.5-45.6); Hemoglobin 13.4 gm/dl (11.8-15.2); Lymphocytes # (Auto) 2.6 K/mm3 (1.2-5.4); Lymphocytes % (Auto) 22.2 % (13.4-35.0); Mean Corpuscular HGB Conc 34 % (32-34); Mean Corpuscular Volume 105 fl (84-94); Monocytes # (Auto) 0.8 K/mm3 (0.0-0.8); Monocytes % (Auto) 6.8 % (0.0-7.3); Platelet Count 142 K/mm3 (140-440); Red Blood Count 3.77 M/mm3 (3.65-5.03); Red Cell Distribution Width 16.7 % (13.2-15.2)
[2021-02-06] MEDS: FAMOTIDINE 20 MG/2 ML INJ IV SCH ×2 (09:13→21:42)
[2021-02-06] MEDS: LORazepam 2 MG/ML VIAL IV PRN ×6 (09:14→22:44)
[2021-02-06] MEDS: HEPARIN 5,000 UNIT/1 ML VIAL SUB-Q SCH ×2 (09:15→21:42)
--- NOTE | 2021-02-06 09:15 | Electrocardiograph Report ---
[facility] Test Date: 2021-02-05 Test Time: 15:29:02 Pat Name: SULAIMAN BRIAN Department: Room: A489 1 Gender: M Content Management Specialist: BEREKET : 1985 Requested By: ERIC ROSE Order Number: [id number] Reading MD: Luke Prieto Measurements Intervals [place] Rate: 124 P: 45 MI: 147 QRS: 71 QRSD: 79 T: 24 QT: 312 QTc: 448 Interpretive Statements Sinus tachycardia Probable left atrial enlargement nonspecific st-t No previous ECG available for comparison Electronically Signed On 02-06-2021 9:15:00 EDT by Luke Prieto
--- NOTE | 2021-02-06 09:38 | Progress Note ---
Assessment and Plan Assessment and plan: 35-year-old -Greek male with a past medical history of alcohol dependence who presents with bilateral pneumonia. Bilateral pneumonia, treat committee acquired pneumonia versus aspiration pne umonia Current Visit: Yes Status: Acute Plan to address problem: IV Zithromax and IV ceftriaxone for now PUI Covid pending Hepatic steatosis Most likely secondary to alcohol use INR normal Hepatitis panel pending Transaminitis Current Visit: Yes Status: Acute Plan to address problem: Secondary to EtOH use Hepatitis profile requested EtOH dependence Current Visit: Yes Status: Chronic Qualifiers: Substance use status: uncomplicated Qualified Code(s): F10.20 - Alcohol d ependence, uncomplicated Plan to address problem: Patient initiated on CIWA protocol DVT prophylaxis Current Visit: Yes Status: Acute Plan to address problem: On heparin and GI prophylaxis Disposition: Continue to treat pneumonia with IV antibiotics, treat for alcohol withdrawal. Anticipate discharge within 48 hours. History Interval history: 02/06/2021: Patient seen and examined, seems little bit confused, no signs of alcohol withdrawal at this time, denies any hallucinations Hospitalist Physical - Physical exam Narrative exam: General appearance: no acute distress, well-nourished EENT: PERRL, EOM intact, hearing intact, clear oral mucosa Neck: Present: supple, normal ROM Respiratory: bilateral CTA, negative: rales, rhonchi, wheezing Cardiovascular: Regular rate/rhythm, Normal S1 & S2. No gallop, rub Extremities: no ischemia, No edema in lower extremities, normal temperature, normal color, Full ROM Abdominal: soft, no tenderness, mild distention of abdomen, no fluid wave, normal bowel sounds Integumentary: Present: clear, warm, dry no wounds, no erythema noted Psychiatric: appropriate mood/affect, poor judgment & insight Neurologic: CNII-XII intact, moves all extremities, no sensory or motor abnormalities - Constitutional Vitals: Temp Pulse Resp BP Pulse Ox 99.0 F 99 H 19 145/97 95 02/06/21 07:41 02/06/21 07:41 02/06/21 07:41 02/06/21 07:41 02/06/21 07:41 HEART Score - HEART Score EKG: Normal Age: < 45 Risk factors: 1-2 risk factors Troponin: Troponin T < 0.010 ng/mL (0.00-0.029) 02/05/21 15:33 Troponin: < normal limit - Critical Actions Critical Actions: 0-3 pts:0.9-1.7%risk of adverse cardiac event.Candidate for discharge Results - Labs CBC & Chem 7: 02/06/21 08:47 02/05/21 15:33 Labs: Laboratory Last Values WBC 11.7 K/mm3 (4.5-11.0) H 02/06/21 08:47 RBC 3.77 M/mm3 (3.65-5.03) 02/06/21 08:47 Hgb 13.4 gm/dl (11.8-15.2) 02/06/21 08:47 Hct 39.5 % (35.5-45.6) 02/06/21 08:47 MCV 105 fl (84-94) H 02/06/21 08:47 MCH 36 pg (28-32) H 02/06/21 08:47 MCHC 34 % (32-34) 02/06/21 08:47 RDW 16.7 % (13.2-15.2) H 02/06/21 08:47 Plt Count 142 K/mm3 (140-440) 02/06/21 08:47 Lymph % (Auto) 22.2 % (13.4-35.0) 02/06/21 08:47 [place] % (Auto) 6.8 % (0.0-7.3) 02/06/21 08:47 Eos % (Auto) 1.7 % (0.0-4.3) 02/06/21 08:47 Baso % (Auto) 1.2 % (0.0-1.8) 02/06/21 08:47 Lymph # (Auto) 2.6 K/mm3 (1.2-5.4) 02/06/21 08:47 [place] # (Auto) 0.8 K/mm3 (0.0-0.8) 02/06/21 08:47 Eos # (Auto) 0.2 K/mm3 (0.0-0.4) 02/06/21 08:47 Baso # (Auto) 0.1 K/mm3 (0.0-0.1) 02/06/21 08:47 Seg Neutrophils % 68.1 % (40.0-70.0) 02/06/21 08:47 Seg Neutrophils # 8.0 K/mm3 (1.8-7.7) H 02/06/21 08:47 PT 14.9 Sec. (12.2-14.9) 02/05/21 15:33 INR 1.11 (0.87-1.13) 02/05/21 15:33 D-Dimer 153.28 ng/mlDDU (0-234) 02/05/21 15:33 VBG pH 7.472 (7.320-7.420) H 02/05/21 15:33 Sodium 140 mmol/L (137-145) 02/05/21 15:33 Potassium 3.6 mmol/L (3.6-5.0) 02/05/21 15:33 Chloride 97.6 mmol/L (98-107) L 02/05/21 15:33 Carbon Dioxide 24 mmol/L (22-30) 02/05/21 15:33 Anion Gap 22 mmol/L 02/05/21 15:33 BUN 5 mg/dL (9-20) L 02/05/21 15:33 Creatinine 0.3 mg/dL (0.8-1.3) L 02/05/21 15:33 Estimated GFR > 60 ml/min 02/05/21 15:33 BUN/Creatinine Ratio 17 % 02/05/21 15:33 Glucose 129 mg/dL (75-100) H 02/05/21 15:33 Hemoglobin A1c 4.4 % (4-6) 02/06/21 08:47 Lactic Acid 1.90 mmol/L (0.7-2.0) 02/05/21 18:02 Calcium 9.6 mg/dL (8.4-10.2) 02/05/21 15:33 Total Bilirubin 1.80 mg/dL (0.1-1.2) H 02/05/21 15:33 AST 177 units/L (5-40) H 02/05/21 15:33 ALT 37 units/L (7-56) 02/05/21 15:33 Alkaline Phosphatase 433 units/L (35-129) H 02/05/21 15:33 Troponin T < 0.010 ng/mL (0.00-0.029) 02/05/21 15:33 NT-Pro-B Natriuret Pep 5.14 pg/mL (0-450) 02/05/21 15:33 Total Protein 7.9 g/dL (6.3-8.2) 02/05/21 15:33 Albumin 4.1 g/dL (3.9-5) 02/05/21 15:33 Albumin/Globulin Ratio 1.1 % 02/05/21 15:33 Plasma/Serum Alcohol < 0.01 % (0-0.07) 02/05/21 19:09 Microbiology: Microbiology 02/05/21 15:33 Peripheral/Venous Blood Culture - Preliminary Culture in Progress 02/05/21 15:39 Peripheral/Venous Blood Culture - Preliminary Culture in Progress Active Medications - Current Medications Current Medications: Generic Name Dose Route Start Last Admin Trade Name Freq PRN Reason Stop Dose Admin Acetaminophen 650 mg 02/05/21 20:32 Acetaminophen 325 Mg Tab PO Q4H PRN Pain MILD(1-3)/Fever >100.5/JOVEL Albuterol 2.5 mg 02/05/21 20:44 Albuterol 2.5 Mg/3 Ml Nebu IH Q4HRT PRN Shortness Of Breath Famotidine 20 mg 02/05/21 22:00 02/06/21 09:13 Famotidine 20 Mg/2 Ml Inj IV 20 mg BID ARMIN Administration Heparin Sodium (Porcine) 5,000 unit 02/06/21 10:00 02/06/21 09:15 Heparin 5,000 Unit/1 Ml Vial SUB-Q 5,000 unit Q12HR ARMIN Administration Azithromycin 500 mg in 250 mls @ 250 mls/hr 02/06/21 19:00 Zithromax/Ns IV Q24H [facility] Ceftriaxone Sodium 2 gm in 100 mls @ 200 mls/hr 02/06/21 18:00 Rocephin/Ns 2 Gm/100 Ml IV Q24H [facility] Protocol Lorazepam 2 mg 02/05/21 17:33 02/06/21 09:14 Lorazepam 2 Mg/Ml Vial IV 2 mg Q1HR PRN Administration JEAN-CLAUDE-Armando 8-15 Metoclopramide HCl 10 mg 02/05/21 20:33 Metoclopramide 10 Mg/2 Ml Inj IV Q6H PRN Nausea And Vomiting Morphine Sulfate 2 mg 02/05/21 20:33 Morphine 2 Mg/1 Ml Inj IV Q4H PRN Pain, Moderate (4-6) Ondansetron HCl 4 mg 02/05/21 20:32 Ondansetron 4 Mg/2 Ml Inj IV Q8H PRN Nausea And Vomiting Sodium Chloride 10 ml 02/05/21 22:00 02/06/21 09:18 Sodium Chloride 0.9% 10 Ml Flush Syringe IV 10 ml BID ARMIN Administration Sodium Chloride 10 ml 02/05/21 20:32 Sodium Chloride 0.9% 10 Ml Flush Syringe IV PRN PRN LINE FLUSH
[2021-02-06 09:47] LABS: Alanine Aminotransferase 30 units/L (7-56); Albumin 3.9 g/dL (3.9-5); Blood Urea Nitrogen 3 mg/dL (9-20); Calcium 9.9 mg/dL (8.4-10.2); Hemolysis Index 5
[2021-02-06 09:51] LABS: Hepatitis B Surface Antigen Non-Reactive (Negative); Hepatitis C Virus Antibody Non-Reactive (NonReactive)
[2021-02-06 09:53] LABS: BUN/Creatinine Ratio 8
[2021-02-06 12:10] LABS: Bilirubin,Urine NEG (Negative); Blood,Urine NEG (Negative); Color,Urine Yellow (Yellow); Protein,Urine <15 mg/dL mg/dL (Negative)
[2021-02-06 13:48] LABS: WBC,Urine < 1.0 /HPF (0.0-6.0)
[2021-02-06] MEDS: cefTRIAXone/NS 2 GM/100 ML 2 GM/100 ML BAG IV SCH (17:02)
[2021-02-06] MEDS ORDERED: AZITHROMYCIN/NS 500 MG/250 ML 500 MG/250 ML BAG IV SCH (19:00)
[2021-02-07] MEDS: LORazepam 2 MG/ML VIAL IV PRN ×8 (00:19→21:33)
[2021-02-07] MEDS ORDERED: ZIPRASIDONE MESYLATE 20 MG VIAL IM ONE ×2 (02:17→22:27)
[2021-02-07 07:06] LABS: Alanine Aminotransferase 30 units/L (7-56); Albumin 3.5 g/dL (3.9-5); Blood Urea Nitrogen 3 mg/dL (9-20); Calcium 9.4 mg/dL (8.4-10.2); Hemolysis Index 24
[2021-02-07 07:28] LABS: BUN/Creatinine Ratio 10
[2021-02-07] MEDS: FAMOTIDINE 20 MG/2 ML INJ IV SCH ×2 (09:23→21:20)
[2021-02-07] MEDS: HEPARIN 5,000 UNIT/1 ML VIAL SUB-Q SCH ×2 (09:24→21:20)
[2021-02-07] MEDS ORDERED: AZITHROMYCIN 250 MG TAB PO SCH (10:00)
[2021-02-07] MEDS ORDERED: chlordiazePOXIDE 25 MG CAP PO PRN ×2 (10:04)
--- NOTE | 2021-02-07 10:25 | Progress Note ---
Assessment and Plan Assessment and plan: 35-year-old -[place] male with a past medical history of alcohol dependence who presents with bilateral pneumonia. Acute encephalopathy secondary to possible alcohol withdrawal CIWA protocol Ammonia level Syphilis pending Librium p.o. if the patient is able to tolerate p.o. B12, folic acid, magnesium level pending Bilateral pneumonia, treat committee acquired pneumonia versus aspiration pneumonia Current Visit: Yes Status: Acute Plan to address problem: IV Zithromax and IV ceftriaxone for now Patient is Covid negative Hepatic steatosis Most likely secondary to alcohol use INR normal Hepatitis panel normal Elevated lactic acidosis Resolved Bicarb is low Sodium bicarb fluids Pending lactic acid Transaminitis Current Visit: Yes Status: Acute Plan to address problem: Secondary to EtOH use Hepatitis normal Currently downtrending EtOH dependence Current Visit: Yes Status: Chronic Qualifiers: Substance use status: uncomplicated Qualified Code(s): F10.20 - Alcohol dependence, uncomplicated Plan to address problem: Patient initiated on CIWA protocol DVT prophylaxis Current Visit: Yes Status: Acute Plan to address problem: On heparin and GI prophylaxis Disposition: Patient seems to be withdrawing from alcohol, continue CIWA protoco l, monitor for DTs, attempted to contact family, unable to do so. History Interval history: 02/06/2021: Patient seen and examined, seems little bit confused, no signs of alcohol withdrawal at this time, denies any hallucinations 02/07/2021: Patient seen and examined, nonpurposeful lower and upper extremity movements, patient is confused, patient minimally verbal, seems to be withdrawing from alcohol. Patient was given 2 mg of Ativan this morning. Attempted to call family, no answer. Hospitalist Physical - Physical exam Narrative exam: General appearance: no acute distress, well-nourished EENT: PERRL, EOM intact, hearing intact, clear oral mucosa Respiratory: bilateral CTA, negative: rales, rhonchi, wheezing Cardiovascular: Regular rate/rhythm, Normal S1 & S2. No gallop, rub Extremities: no ischemia, No edema in lower extremities, normal temperature, normal color, Full ROM Abdominal: soft, no tenderness, mild distention of abdomen, no fluid wave, normal bowel sounds Integumentary: Present: clear, warm, dry no wounds, no erythema noted Neurologic: CNII-XII intact, nonpurposeful upper and lower extremity movements, lethargic, confused - Constitutional Vitals: Temp Pulse Resp BP Pulse Ox 99.3 F 96 H 20 140/85 93 02/07/21 07:22 02/07/21 07:22 02/07/21 09:39 02/07/21 07:22 02/07/21 07:22 HEART Score - HEART Score EKG: Normal Age: < 45 Risk factors: 1-2 risk factors Troponin: Troponin T < 0.010 ng/mL (0.00-0.029) 02/05/21 15:33 Troponin: < normal limit - Critical Actions Critical Actions: 0-3 pts:0.9-1.7%risk of adverse cardiac event.Candidate for discharge Results - Labs CBC & Chem 7: 02/06/21 08:47 02/07/21 05:17 Labs: Laboratory Last Values WBC 11.7 K/mm3 (4.5-11.0) H 02/06/21 08:47 RBC 3.77 M/mm3 (3.65-5.03) 02/06/21 08:47 Hgb 13.4 gm/dl (11.8-15.2) 02/06/21 08:47 Hct 39.5 % (35.5-45.6) 02/06/21 08:47 MCV 105 fl (84-94) H 02/06/21 08:47 MCH 36 pg (28-32) H 02/06/21 08:47 MCHC 34 % (32-34) 02/06/21 08:47 RDW 16.7 % (13.2-15.2) H 02/06/21 08:47 Plt Count 142 K/mm3 (140-440) 02/06/21 08:47 Lymph % (Auto) 22.2 % (13.4-35.0) 02/06/21 08:47 [place] % (Auto) 6.8 % (0.0-7.3) 02/06/21 08:47 Eos % (Auto) 1.7 % (0.0-4.3) 02/06/21 08:47 Baso % (Auto) 1.2 % (0.0-1.8) 02/06/21 08:47 Lymph # (Auto) 2.6 K/mm3 (1.2-5.4) 02/06/21 08:47 [place] # (Auto) 0.8 K/mm3 (0.0-0.8) 02/06/21 08:47 Eos # (Auto) 0.2 K/mm3 (0.0-0.4) 02/06/21 08:47 Baso # (Auto) 0.1 K/mm3 (0.0-0.1) 02/06/21 08:47 Seg Neutrophils % 68.1 % (40.0-70.0) 02/06/21 08:47 Seg Neutrophils # 8.0 K/mm3 (1.8-7.7) H 02/06/21 08:47 PT 14.9 Sec. (12.2-14.9) 02/05/21 15:33 INR 1.11 (0.87-1.13) 02/05/21 15:33 D-Dimer 153.28 ng/mlDDU (0-234) 02/05/21 15:33 VBG pH 7.472 (7.320-7.420) H 02/05/21 15:33 Sodium 136 mmol/L (137-145) L 02/07/21 05:17 Potassium 4.1 mmol/L (3.6-5.0) 02/07/21 05:17 Chloride 97.4 mmol/L (98-107) L 02/07/21 05:17 Carbon Dioxide 19 mmol/L (22-30) L D 02/07/21 05:17 Anion Gap 24 mmol/L 02/07/21 05:17 BUN 3 mg/dL (9-20) L 02/07/21 05:17 Creatinine 0.3 mg/dL (0.8-1.3) L 02/07/21 05:17 Estimated GFR > 60 ml/min 02/07/21 05:17 BUN/Creatinine Ratio 10 % 02/07/21 05:17 Glucose 77 mg/dL (75-100) 02/07/21 05:17 Hemoglobin A1c 4.4 % (4-6) 02/06/21 08:47 Lactic Acid 1.90 mmol/L (0.7-2.0) 02/05/21 18:02 Calcium 9.4 mg/dL (8.4-10.2) 02/07/21 05:17 Total Bilirubin 1.50 mg/dL (0.1-1.2) H 02/07/21 05:17 AST 119 units/L (5-40) H 02/07/21 05:17 ALT 30 units/L (7-56) 02/07/21 05:17 Alkaline Phosphatase 345 units/L (35-129) H 02/07/21 05:17 Troponin T < 0.010 ng/mL (0.00-0.029) 02/05/21 15:33 NT-Pro-B Natriuret Pep 5.14 pg/mL (0-450) 02/05/21 15:33 Total Protein 7.4 g/dL (6.3-8.2) 02/07/21 05:17 Albumin 3.5 g/dL (3.9-5) L 02/07/21 05:17 Albumin/Globulin Ratio 0.9 % 02/07/21 05:17 Urine Color Yellow (Yellow) 02/06/21 11:55 Urine Turbidity Clear (Clear) 02/06/21 11:55 Urine pH 8.0 (5.0-7.0) H 02/06/21 11:55 Ur Specific [place] 1.012 (1.003-1.030) 02/06/21 11:55 Urine Protein <15 mg/dl mg/dL (Negative) 02/06/21 11:55 Urine Glucose (UA) Neg mg/dL (Negative) 02/06/21 11:55 Urine Ketones Neg mg/dL (Negative) 02/06/21 11:55 Urine Blood Neg (Negative) 02/06/21 11:55 Urine Nitrite Neg (Negative) 02/06/21 11:55 Urine Bilirubin Neg (Negative) 02/06/21 11:55 Urine Urobilinogen 4.0 mg/dL (<2.0) 02/06/21 11:55 Ur Leukocyte Esterase Neg (Negative) 02/06/21 11:55 Urine WBC (Auto) < 1.0 /HPF (0.0-6.0) 02/06/21 11:55 Urine RBC (Auto) 1.0 /HPF (0.0-6.0) 02/06/21 11:55 U Epithel Cells (Auto) < 1.0 /HPF (0-13.0) 02/06/21 11:55 Plasma/Serum Alcohol < 0.01 % (0-0.07) 02/05/21 19:09 Coronavirus (PCR) Negative (Negative) 02/06/21 Unknown Hepatitis A IgM Ab Non-reactive (NonReactive) 02/06/21 08:47 Hep Bs Antigen Non-reactive (Negative) 02/06/21 08:47 Hep B Core IgM Ab Non-reactive (NonReactive) 02/06/21 08:47 Hepatitis C Antibody Non-reactive (NonReactive) 02/06/21 08:47 Microbiology: Microbiology 02/05/21 15:33 Peripheral/Venous Blood Culture - Preliminary NO GROWTH AFTER 24 HOURS 02/05/21 15:39 Peripheral/Venous Blood Culture - Preliminary NO GROWTH AFTER 24 HOURS [place]/IV: Voiding Method Condom Catheter Active Medications - Current Medications Current Medications: Generic Name Dose Route Start Last Admin Trade Name Freq PRN Reason Stop Dose Admin Acetaminophen 650 mg 02/05/21 20:32 Acetaminophen 325 Mg Tab PO Q4H PRN Pain MILD(1-3)/Fever >100.5/JOVEL Albuterol 2.5 mg 02/05/21 20:44 Albuterol 2.5 Mg/3 Ml Nebu IH Q4HRT PRN Shortness Of Breath Azithromycin 500 mg 02/07/21 10:00 02/07/21 09:23 Azithromycin 250 Mg Tab PO 02/10/21 10:01 500 mg QDAY ARMIN Administration Protocol Chlordiazepoxide HCl 50 mg 02/07/21 10:04 Chlordiazepoxide 25 Mg Cap PO Q1H PRN CIWA-Ar 8-15 Chlordiazepoxide HCl 100 mg 02/07/21 10:04 Chlordiazepoxide 25 Mg Cap PO Q1H PRN CIWA-Ar 16-25 Famotidine 20 mg 02/05/21 22:00 02/07/21 09:23 Famotidine 20 Mg/2 Ml Inj IV 20 mg BID ARMIN Administration Heparin Sodium (Porcine) 5,000 unit 02/06/21 10:00 02/07/21 09:24 Heparin 5,000 Unit/1 Ml Vial SUB-Q 5,000 unit Q12HR ARMIN Administration Ceftriaxone Sodium 2 gm in 100 mls @ 200 mls/hr 02/06/21 18:00 02/06/21 17:02 Rocephin/Ns 2 Gm/100 Ml IV 02/10/21 18:29 200 mls/hr Q24H ARMIN Administration Protocol Lorazepam 2 mg 02/05/21 17:33 02/07/21 08:09 Lorazepam 2 Mg/Ml Vial IV 2 mg Q1HR PRN Administration CIWA-Ar 8-15 Lorazepam 4 mg 02/07/21 10:13 Lorazepam 2 Mg/Ml Vial IV Q1H PRN CIWA-Ar 16-25 Metoclopramide HCl 10 mg 02/05/21 20:33 Metoclopramide 10 Mg/2 Ml Inj IV Q6H PRN Nausea And Vomiting Morphine Sulfate 2 mg 02/05/21 20:33 Morphine 2 Mg/1 Ml Inj IV Q4H PRN Pain, Moderate (4-6) Ondansetron HCl 4 mg 02/05/21 20:32 Ondansetron 4 Mg/2 Ml Inj IV Q8H PRN Nausea And Vomiting Sodium Chloride 10 ml 02/05/21 22:00 02/07/21 09:24 Sodium Chloride 0.9% 10 Ml Flush Syringe IV 10 ml BID ARMIN Administration Sodium Chloride 10 ml 02/05/21 20:32 Sodium Chloride 0.9% 10 Ml Flush Syringe IV PRN PRN LINE FLUSH
[2021-02-07] MEDS ORDERED: SODIUM BICARBONATE 50 MEQ in SODIUM CHLORIDE 0.9% 1000 ML 1,000 ML IV SCH (11:00)
[2021-02-07 13:05] LABS: Amphetamine Screen,Urine Negative; Benzodiazepines Screen,Urine Negative; Cannabinoid Screen,Urine Negative; Cocaine Screen,Urine Negative; Methadone Screen,Urine Negative; Opiate Screen,Urine Negative
[2021-02-07] MEDS ORDERED: 1: FOLIC ACID 1 MG, MULTIPLE VITAMIN INJ, ADULT 10 ML, THIAMINE 100 MG in SODIUM CHLORID IV SCH (15:00)
--- NOTE | 2021-02-07 16:24 | Cat Scan Report ---
CT HEAD WITHOUT CONTRAST INDICATION / CLINICAL INFORMATION: r/o CVA. TECHNIQUE: Axial imaging performed from the skull apex through the skull base without the use of cont rast. Sagittal and coronal reformatted images. All CT scans at this location are performed using CT dose reduction for ALARA by means of automated exposure control. COMPARISON: None available. FINDINGS: CEREBRAL PARENCHYMA: No significant abnormality. No acute territorial infarct. HEMORRHAGE: None. EXTRA-AXIAL SPACES: Normal in size and morphology for the patient's age. VENTRICULAR SYSTEM: Normal in size and morphology for the patient's age. MIDLINE SHIFT OR HERNIATION: None. CEREBELLUM / BRAINSTEM: No significant abnormality. CALVARIUM: No significant abnormality. ORBITS: Normal as visualized. PARANASAL SINUSES / MASTOID AIR CELLS: Normal as visualized. SOFT TISSUES of HEAD: No significant abnormality. ADDITIONAL FINDINGS: None. IMPRESSION: No acute intracranial abnormality. Normal noncontrast CT brain. Signer Name: Clifton Banegas Jr, MD Signed: 02/07/2021 4:19 PM Workstation Name: [id number]
[2021-02-07] MEDS: THIAMINE 100 MG, FOLIC ACID 1 MG, MULTIPLE VITAMIN INJ, ADULT 10 ML in SODIUM CHLORIDE ... IV SCH (16:41)
[2021-02-07] MEDS: AZITHROMYCIN/NS 500 MG/250 ML 500 MG/250 ML BAG IV SCH (16:42)
[2021-02-07] MEDS: cefTRIAXone/NS 2 GM/100 ML 2 GM/100 ML BAG IV SCH (18:52)
[2021-02-08] MEDS: LORazepam 2 MG/ML VIAL IV PRN ×7 (01:40→23:38)
[2021-02-08 05:56] LABS: Hematocrit 38.5 % (35.5-45.6); Mean Corpuscular HGB Conc 34 % (32-34); Mean Corpuscular Volume 104 fl (84-94); Platelet Count 157 K/mm3 (140-440); Red Cell Distribution Width 16.8 % (13.2-15.2)
[2021-02-08 06:23] LABS: Alanine Aminotransferase 28 units/L (7-56); Albumin 3.8 g/dL (3.9-5); Blood Urea Nitrogen 3 mg/dL (9-20); Calcium 9.7 mg/dL (8.4-10.2); Hemolysis Index 3
[2021-02-08 06:27] LABS: BUN/Creatinine Ratio 8
[2021-02-08] MEDS: POTASSIUM CHLORIDE 10 MEQ 10 MEQ/100 ML BAG IV SCH ×2 (08:12→08:21)
[2021-02-08] MEDS ORDERED: POTASSIUM CHLORIDE 10 MEQ 10 MEQ/100 ML BAG IV ONE (08:30)
[2021-02-08] MEDS: FAMOTIDINE 20 MG/2 ML INJ IV SCH ×2 (09:52→21:19)
[2021-02-08] MEDS: HEPARIN 5,000 UNIT/1 ML VIAL SUB-Q SCH ×2 (09:52→21:19)
[2021-02-08] MEDS: THIAMINE 400 MG in SODIUM CHLORIDE 0.9% 50 ML IV SCH ×3 (09:52→21:19)
--- NOTE | 2021-02-08 10:42 | Progress Note ---
Assessment and Plan Assessment and plan: 35-year-old -[place] male with a past medical history of alcohol dependence who presents with bilateral pneumonia. Acute encephalopathy secondary to possible alcohol withdrawal Wernicke's alcoholic encephalopathy? [facility] protocol Ammonia level Syphilis pending Librium p.o. if the patient is able to tolerate p.o. Banana bag 400 mg IV thiamine 3 times daily for at least 2 days, observe response Patient currently n.p.o. at this time Accu-Cheks every 6 hours 02/07/2021 CT scan of the brain negative for any acute abnormalities Bilateral pneumonia, treat committee acquired pneumonia versus aspiration pneumonia Current Visit: Yes Status: Acute Plan to address problem: IV Zithromax and IV ceftriaxone procalcitonin is elevated Patient is Covid negative Hepatic steatosis Most likely secondary to alcohol use INR normal Hepatitis panel normal Elevated lactic acidosis Resolved Bicarb is low Sodium bicarb fluids Normal lactic acid Transaminitis Current Visit: Yes Status: Acute Plan to address problem: Secondary to EtOH use Hepatitis normal Currently downtrending EtOH dependence Current Visit: Yes Status: Chronic Qualifiers: Substance use status: uncomplicated Qualified Code(s): F10.20 - Alcohol dependence, uncomplicated Plan to address problem: Patient initiated on [facility] protocol DVT prophylaxis Current Visit: Yes Status: Acute Plan to address problem: On heparin and GI prophylaxis Disposition: Continue treatment for alcohol withdrawal. History Interval history: 02/06/2021: Patient seen and examined, seems little bit confused, no signs of alcohol withdrawal at this time, denies any hallucinations 02/07/2021: Patient seen and examined, nonpurposeful lower and upper extremity movements, patient is confused, patient minimally verbal, seems to be withdrawing from alcohol. Patient was given 2 mg of Ativan this morning. Attempted to call family, no answer. 02/08/2021: Events noted overnight, patient was, floor, completely agitated with more awake. Ativan given for continued withdrawal. Hospitalist Physical - Physical exam Narrative exam: General appearance: no acute distress, well-nourished EENT: PERRL, EOM intact, hearing intact, clear oral mucosa Respiratory: bilateral CTA, negative: rales, rhonchi, wheezing Cardiovascular: Regular rate/rhythm, Normal S1 & S2. No gallop, rub Extremities: no ischemia, No edema in lower extremities, normal temperature, normal color, Full ROM Abdominal: soft, no tenderness, mild distention of abdomen, no fluid wave, normal bowel sounds Integumentary: Present: clear, warm, dry no wounds, no erythema noted Neurologic: CNII-XII intact, nonpurposeful upper and lower extremity movements, lethargic, confused, garbled speech - Constitutional Vitals: Temp Pulse Resp BP Pulse Ox 98.1 F 146 H 18 133/74 94 02/08/21 08:23 02/08/21 08:23 02/08/21 08:23 02/08/21 08:23 02/08/21 08:23 HEART Score - HEART Score EKG: Normal Age: < 45 Risk factors: 1-2 risk factors Troponin: Troponin T < 0.010 ng/mL (0.00-0.029) 02/05/21 15:33 Troponin: < normal limit - Critical Actions Critical Actions: 0-3 pts:0.9-1.7%risk of adverse cardiac event.Candidate for discharge Results - Labs CBC & Chem 7: 02/08/21 05:07 02/08/21 05:07 Labs: Laboratory Last Values WBC 10.9 K/mm3 (4.5-11.0) 02/08/21 05:07 RBC 3.70 M/mm3 (3.65-5.03) 02/08/21 05:07 Hgb 13.0 gm/dl (11.8-15.2) 02/08/21 05:07 Hct 38.5 % (35.5-45.6) 02/08/21 05:07 MCV 104 fl (84-94) H 02/08/21 05:07 MCH 35 pg (28-32) H 02/08/21 05:07 MCHC 34 % (32-34) 02/08/21 05:07 RDW 16.8 % (13.2-15.2) H 02/08/21 05:07 Plt Count 157 K/mm3 (140-440) 02/08/21 05:07 Lymph % (Auto) 22.2 % (13.4-35.0) 02/06/21 08:47 [place] % (Auto) 6.8 % (0.0-7.3) 02/06/21 08:47 Eos % (Auto) 1.7 % (0.0-4.3) 02/06/21 08:47 Baso % (Auto) 1.2 % (0.0-1.8) 02/06/21 08:47 Lymph # (Auto) 2.6 K/mm3 (1.2-5.4) 02/06/21 08:47 [place] # (Auto) 0.8 K/mm3 (0.0-0.8) 02/06/21 08:47 Eos # (Auto) 0.2 K/mm3 (0.0-0.4) 02/06/21 08:47 Baso # (Auto) 0.1 K/mm3 (0.0-0.1) 02/06/21 08:47 Seg Neutrophils % 68.1 % (40.0-70.0) 02/06/21 08:47 Seg Neutrophils # 8.0 K/mm3 (1.8-7.7) H 02/06/21 08:47 PT 14.9 Sec. (12.2-14.9) 02/05/21 15:33 INR 1.11 (0.87-1.13) 02/05/21 15:33 D-Dimer 153.28 ng/mlDDU (0-234) 02/05/21 15:33 VBG pH 7.472 (7.320-7.420) H 02/05/21 15:33 Sodium 141 mmol/L (137-145) 02/08/21 05:07 Potassium 3.1 mmol/L (3.6-5.0) L D 02/08/21 05:07 Chloride 99.6 mmol/L (98-107) 02/08/21 05:07 Carbon Dioxide 22 mmol/L (22-30) 02/08/21 05:07 Anion Gap 23 mmol/L 02/08/21 05:07 BUN 3 mg/dL (9-20) L 02/08/21 05:07 Creatinine 0.4 mg/dL (0.8-1.3) L 02/08/21 05:07 Estimated GFR > 60 ml/min 02/08/21 05:07 BUN/Creatinine Ratio 8 % 02/08/21 05:07 Glucose 81 mg/dL (75-100) 02/08/21 05:07 POC Glucose 95 mg/dL (70-105) 02/08/21 06:14 Hemoglobin A1c 4.4 % (4-6) 02/06/21 08:47 Lactic Acid 0.90 mmol/L (0.7-2.0) 02/07/21 10:52 Calcium 9.7 mg/dL (8.4-10.2) 02/08/21 05:07 Magnesium 1.60 mg/dL (1.7-2.3) L 02/07/21 05:17 Total Bilirubin 1.40 mg/dL (0.1-1.2) H 02/08/21 05:07 AST 108 units/L (5-40) H 02/08/21 05:07 ALT 28 units/L (7-56) 02/08/21 05:07 Alkaline Phosphatase 304 units/L (35-129) H 02/08/21 05:07 Ammonia 39.0 umol/L (25-60) 02/07/21 10:52 Troponin T < 0.010 ng/mL (0.00-0.029) 02/05/21 15:33 NT-Pro-B Natriuret Pep 5.14 pg/mL (0-450) 02/05/21 15:33 Total Protein 7.1 g/dL (6.3-8.2) 02/08/21 05:07 Albumin 3.8 g/dL (3.9-5) L 02/08/21 05:07 Albumin/Globulin Ratio 1.2 % 02/08/21 05:07 Vitamin B12 624.8 pg/mL (211-911) 02/06/21 08:47 Procalcitonin 0.17 ng/mL (<0.15) 02/06/21 08:47 Urine Color Yellow (Yellow) 02/06/21 11:55 Urine Turbidity Clear (Clear) 02/06/21 11:55 Urine pH 8.0 (5.0-7.0) H 02/06/21 11:55 Ur Specific [place] 1.012 (1.003-1.030) 02/06/21 11:55 Urine Protein <15 mg/dl mg/dL (Negative) 02/06/21 11:55 Urine Glucose (UA) Neg mg/dL (Negative) 02/06/21 11:55 Urine Ketones Neg mg/dL (Negative) 02/06/21 11:55 Urine Blood Neg (Negative) 02/06/21 11:55 Urine Nitrite Neg (Negative) 02/06/21 11:55 Urine Bilirubin Neg (Negative) 02/06/21 11:55 Urine Urobilinogen 4.0 mg/dL (<2.0) 02/06/21 11:55 Ur Leukocyte Esterase Neg (Negative) 02/06/21 11:55 Urine WBC (Auto) < 1.0 /HPF (0.0-6.0) 02/06/21 11:55 Urine RBC (Auto) 1.0 /HPF (0.0-6.0) 02/06/21 11:55 U Epithel Cells (Auto) < 1.0 /HPF (0-13.0) 02/06/21 11:55 Urine Opiates Screen Negative 02/07/21 12:14 Urine Methadone Screen Negative 02/07/21 12:14 Ur Barbiturates Screen Negative 02/07/21 12:14 Ur Phencyclidine Scrn Negative 02/07/21 12:14 Ur Amphetamines Screen Negative 02/07/21 12:14 U Benzodiazepines Scrn Negative 02/07/21 12:14 Urine Cocaine Screen Negative 02/07/21 12:14 U Marijuana (THC) Screen Negative 02/07/21 12:14 Drugs of Abuse Note Disclamer 02/07/21 12:14 Plasma/Serum Alcohol < 0.01 % (0-0.07) 02/05/21 19:09 Syphilis IgG Antibody Nonreactive (NonReactive) 02/06/21 08:47 Coronavirus (PCR) Negative (Negative) 02/06/21 Unknown Hepatitis A IgM Ab Non-reactive (NonReactive) 02/06/21 08:47 Hep Bs Antigen Non-reactive (Negative) 02/06/21 08:47 Hep B Core IgM Ab Non-reactive (NonReactive) 02/06/21 08:47 Hepatitis C Antibody Non-reactive (NonReactive) 02/06/21 08:47 Microbiology: Microbiology 02/05/21 15:33 Peripheral/Venous Blood Culture - Preliminary NO GROWTH AFTER 48 HOURS 02/05/21 15:39 Peripheral/Venous Blood Culture - Preliminary NO GROWTH AFTER 48 HOURS Saha/IV: Voiding Method Condom Catheter Active Medications - Current Medications Current Medications: Generic Name Dose Route Start Last Admin Trade Name Freq PRN Reason Stop Dose Admin Acetaminophen 650 mg 02/05/21 20:32 Acetaminophen 325 Mg Tab PO Q4H PRN Pain MILD(1-3)/Fever >100.5/JOVEL Albuterol 2.5 mg 02/05/21 20:44 Albuterol 2.5 Mg/3 Ml Nebu IH Q4HRT PRN Shortness Of Breath Chlordiazepoxide HCl 50 mg 02/07/21 10:04 Chlordiazepoxide 25 Mg Cap PO Q1H PRN CIWA-Ar 8-15 Chlordiazepoxide HCl 100 mg 02/07/21 10:04 Chlordiazepoxide 25 Mg Cap PO Q1H PRN CIWA-Ar 16-25 Famotidine 20 mg 02/05/21 22:00 02/08/21 09:52 Famotidine 20 Mg/2 Ml Inj IV 20 mg BID ARMIN Administration Heparin Sodium (Porcine) 5,000 unit 02/06/21 10:00 02/08/21 09:52 Heparin 5,000 Unit/1 Ml Vial SUB-Q 5,000 unit Q12HR ARMIN Administration Ceftriaxone Sodium 2 gm in 100 mls @ 200 mls/hr 02/06/21 18:00 02/07/21 18:52 Rocephin/Ns 2 Gm/100 Ml IV 02/10/21 18:29 200 mls/hr Q24H ARMIN Administration Protocol Sodium Bicarbonate 50 meq/ 1,050 mls @ 75 mls/hr 02/07/21 11:00 02/08/21 10:33 Sodium Chloride IV 75 mls/hr DIRECT ARMIN Administration Azithromycin 500 mg in 250 mls @ 250 mls/hr 02/07/21 16:00 02/07/21 16:42 Zithromax/Ns IV 250 mls/hr Q24H ARMIN Administration Thiamine HCl 100 mg/ Folic 1,011.2 mls @ 100 mls/hr 02/07/21 16:00 02/07/21 16:41 Acid 1 mg/ Multivitamins/ IV 100 mls/hr Minerals 10 ml/ Sodium Q24H ARMIN Administration Chloride Thiamine HCl 400 mg/ Sodium 54 mls @ 100 mls/hr 02/08/21 08:00 02/08/21 09:52 Chloride IV 100 mls/hr TID ARMIN Administration Lorazepam 2 mg 02/05/21 17:33 02/07/21 21:33 Lorazepam 2 Mg/Ml Vial IV 2 mg Q1HR PRN Administration CIWA-Ar 8-15 Lorazepam 4 mg 02/07/21 10:13 02/08/21 09:56 Lorazepam 2 Mg/Ml Vial IV 4 mg Q1H PRN Administration Yuliya 16-25 Metoclopramide HCl 10 mg 02/05/21 20:33 Metoclopramide 10 Mg/2 Ml Inj IV Q6H PRN Nausea And Vomiting Morphine Sulfate 2 mg 02/05/21 20:33 Morphine 2 Mg/1 Ml Inj IV Q4H PRN Pain, Moderate (4-6) Ondansetron HCl 4 mg 02/05/21 20:32 Ondansetron 4 Mg/2 Ml Inj IV Q8H PRN Nausea And Vomiting Sodium Chloride 10 ml 02/05/21 22:00 02/08/21 09:52 Sodium Chloride 0.9% 10 Ml Flush Syringe IV 10 ml BID ARMIN Administration Sodium Chloride 10 ml 02/05/21 20:32 Sodium Chloride 0.9% 10 Ml Flush Syringe IV PRN PRN LINE FLUSH
[2021-02-08] MEDS: METOPROLOL TARTRATE 5 MG/5 ML INJ IV SCH ×3 (14:52→23:38)
[2021-02-08] MEDS: AZITHROMYCIN/NS 500 MG/250 ML 500 MG/250 ML BAG IV SCH (16:14)
[2021-02-08] MEDS: POTASSIUM CHLORIDE 20 MEQ in LACTATED RINGERS 1,000 ML IV SCH (17:12)
[2021-02-08] MEDS: cefTRIAXone/NS 2 GM/100 ML 2 GM/100 ML BAG IV SCH (17:40)
[2021-02-08] MEDS: THIAMINE 100 MG, FOLIC ACID 1 MG, MULTIPLE VITAMIN INJ, ADULT 10 ML in SODIUM CHLORIDE ... IV SCH (17:41)
[2021-02-09 05:59] LABS: Alanine Aminotransferase 29 units/L (7-56); Albumin 3.6 g/dL (3.9-5); Blood Urea Nitrogen 2 mg/dL (9-20); Calcium 9.2 mg/dL (8.4-10.2); Hemolysis Index 2
[2021-02-09 06:09] LABS: BUN/Creatinine Ratio 5
[2021-02-09] MEDS: METOPROLOL TARTRATE 5 MG/5 ML INJ IV SCH ×4 (06:23→18:10)
[2021-02-09] MEDS: POTASSIUM CHLORIDE 20 MEQ in LACTATED RINGERS 1,000 ML IV SCH ×2 (06:23→16:50)
[2021-02-09] MEDS: LORazepam 2 MG/ML VIAL IV PRN ×3 (06:23→18:10)
[2021-02-09] MEDS: FAMOTIDINE 20 MG/2 ML INJ IV SCH ×2 (09:21→21:28)
[2021-02-09] MEDS: HEPARIN 5,000 UNIT/1 ML VIAL SUB-Q SCH ×2 (09:22→21:28)
[2021-02-09] MEDS: THIAMINE 400 MG in SODIUM CHLORIDE 0.9% 50 ML IV SCH ×3 (09:27→21:28)
--- NOTE | 2021-02-09 13:14 | Progress Note ---
Assessment and Plan Assessment and plan: 35-year-old -[place] male with a past medical history of alcohol dependence who presents with bilateral pneumonia. Acute encephalopathy secondary to possible alcohol withdrawal Wernicke's alcoholic encephalopathy? [facility] protocol Ammonia level Syphilis pending Librium p.o. if the patient is able to tolerate p.o. Banana bag 400 mg IV thiamine 3 times daily for at least 2 days, observe response Patient currently n.p.o. at this time Accu-Cheks every 6 hours 02/07/2021 CT scan of the brain negative for any acute abnormalities Bilateral pneumonia, treat committee acquired pneumonia versus aspiration pneumonia Current Visit: Yes Status: Acute Plan to address problem: IV Zithromax and IV ceftriaxone procalcitonin is elevated Patient is Covid negative Blood cultures are negative Hepatic steatosis Most likely secondary to alcohol use INR normal Hepatitis panel normal Dysphagia secondary to encephalopathy NG tube Nutrition consulted for tube feeds Elevated lactic acidosis Resolved Bicarb is low Sodium bicarb fluids discontinued Normal lactic acid Transaminitis Current Visit: Yes Status: Acute Plan to address problem: Secondary to EtOH use Hepatitis normal Currently downtrending and resolving EtOH dependence Current Visit: Yes Status: Chronic Qualifiers: Substance use status: uncomplicated Qualified Code(s): F10.20 - Alcohol dependence, uncomplicated Plan to address problem: Patient initiated on [facility] protocol DVT prophylaxis Current Visit: Yes Status: Acute Plan to address problem: On heparin and GI prophylaxis Disposition: Continue treatment for alcohol withdrawal. History Interval history: 02/06/2021: Patient seen and examined, seems little bit confused, no signs of alcohol withdrawal at this time, denies any hallucinations 02/07/2021: Patient seen and examined, nonpurposeful lower and upper extremity movements, patient is confused, patient minimally verbal, seems to be with drawing from alcohol. Patient was given 2 mg of Ativan this morning. Attempted to call family, no answer. 02/08/2021: Events noted overnight, patient was, floor, completely agitated with more awake. Ativan given for continued withdrawal. 02/09/2021: Patient continues to be encephalopathic, minimal response, attempted to say his name but voice is garbled, spoke with the bedside nurse, patient is definitely not able to swallow at this time. Spoke with the mother, we will put a NG tube to allow for tube feeds and allow for more long-acting benzodiazepines which will help in his recovery faster. Mother is amenable to tube feeds. Hospitalist Physical - Physical exam Narrative exam: General appearance: no acute distress, well-nourished EENT: PERRL, EOM intact, hearing intact, clear oral mucosa Respiratory: bilateral CTA, negative: rales, rhonchi, wheezing Cardiovascular: Regular rate/rhythm, Normal S1 & S2. No gallop, rub Extremities: Patient in four-point restraints, no ischemia, No edema in lower extremities, normal temperature, normal color, Full ROM Abdominal: soft, no tenderness, mild distention of abdomen, no fluid wave, normal bowel sounds Integumentary: Present: clear, warm, dry no wounds, no erythema noted Neurologic: CNII-XII intact, nonpurposeful upper and lower extremity movements, lethargic, confused, garbled speech - Constitutional Vitals: Temp Pulse Resp BP Pulse Ox 99.2 F 106 H 20 138/86 95 02/09/21 11:33 02/09/21 11:33 02/09/21 11:33 02/09/21 11:33 02/09/21 11:33 General appearance: Present: no acute distress, well-nourished HEART Score - HEART Score EKG: Normal Age: < 45 Risk factors: 1-2 risk factors Troponin: Troponin T < 0.010 ng/mL (0.00-0.029) 02/05/21 15:33 Troponin: < normal limit - Critical Actions Critical Actions: 0-3 pts:0.9-1.7%risk of adverse cardiac event.Candidate for discharge Results - Labs CBC & Chem 7: 02/08/21 05:07 02/09/21 05:01 Labs: Laboratory Last Values WBC 10.9 K/mm3 (4.5-11.0) 02/08/21 05:07 RBC 3.70 M/mm3 (3.65-5.03) 02/08/21 05:07 Hgb 13.0 gm/dl (11.8-15.2) 02/08/21 05:07 Hct 38.5 % (35.5-45.6) 02/08/21 05:07 MCV 104 fl (84-94) H 02/08/21 05:07 MCH 35 pg (28-32) H 02/08/21 05:07 MCHC 34 % (32-34) 02/08/21 05:07 RDW 16.8 % (13.2-15.2) H 02/08/21 05:07 Plt Count 157 K/mm3 (140-440) 02/08/21 05:07 Lymph % (Auto) 22.2 % (13.4-35.0) 02/06/21 08:47 [place] % (Auto) 6.8 % (0.0-7.3) 02/06/21 08:47 Eos % (Auto) 1.7 % (0.0-4.3) 02/06/21 08:47 Baso % (Auto) 1.2 % (0.0-1.8) 02/06/21 08:47 Lymph # (Auto) 2.6 K/mm3 (1.2-5.4) 02/06/21 08:47 [place] # (Auto) 0.8 K/mm3 (0.0-0.8) 02/06/21 08:47 Eos # (Auto) 0.2 K/mm3 (0.0-0.4) 02/06/21 08:47 Baso # (Auto) 0.1 K/mm3 (0.0-0.1) 02/06/21 08:47 Seg Neutrophils % 68.1 % (40.0-70.0) 02/06/21 08:47 Seg Neutrophils # 8.0 K/mm3 (1.8-7.7) H 02/06/21 08:47 PT 14.9 Sec. (12.2-14.9) 02/05/21 15:33 INR 1.11 (0.87-1.13) 02/05/21 15:33 D-Dimer 153.28 ng/mlDDU (0-234) 02/05/21 15:33 VBG pH 7.472 (7.320-7.420) H 02/05/21 15:33 Sodium 139 mmol/L (137-145) 02/09/21 05:01 Potassium 3.6 mmol/L (3.6-5.0) 02/09/21 05:01 Chloride 103.0 mmol/L (98-107) 02/09/21 05:01 Carbon Dioxide 20 mmol/L (22-30) L 02/09/21 05:01 Anion Gap 20 mmol/L 02/09/21 05:01 BUN 2 mg/dL (9-20) L 02/09/21 05:01 Creatinine 0.4 mg/dL (0.8-1.3) L 02/09/21 05:01 Estimated GFR > 60 ml/min 02/09/21 05:01 BUN/Creatinine Ratio 5 % 02/09/21 05:01 Glucose 86 mg/dL (75-100) 02/09/21 05:01 POC Glucose 100 mg/dL (70-105) 02/09/21 11:34 Hemoglobin A1c 4.4 % (4-6) 02/06/21 08:47 Lactic Acid 0.90 mmol/L (0.7-2.0) 02/07/21 10:52 Calcium 9.2 mg/dL (8.4-10.2) 02/09/21 05:01 Magnesium 1.60 mg/dL (1.7-2.3) L 02/07/21 05:17 Total Bilirubin 1.10 mg/dL (0.1-1.2) 02/09/21 05:01 AST 106 units/L (5-40) H 02/09/21 05:01 ALT 29 units/L (7-56) 02/09/21 05:01 Alkaline Phosphatase 281 units/L (35-129) H 02/09/21 05:01 Ammonia 39.0 umol/L (25-60) 02/07/21 10:52 Troponin T < 0.010 ng/mL (0.00-0.029) 02/05/21 15:33 NT-Pro-B Natriuret Pep 5.14 pg/mL (0-450) 02/05/21 15:33 Total Protein 6.7 g/dL (6.3-8.2) 02/09/21 05:01 Albumin 3.6 g/dL (3.9-5) L 02/09/21 05:01 Albumin/Globulin Ratio 1.2 % 02/09/21 05:01 Vitamin B12 624.8 pg/mL (211-911) 02/06/21 08:47 Procalcitonin 0.17 ng/mL (<0.15) 02/06/21 08:47 Urine Color Yellow (Yellow) 02/06/21 11:55 Urine Turbidity Clear (Clear) 02/06/21 11:55 Urine pH 8.0 (5.0-7.0) H 02/06/21 11:55 Ur Specific [place] 1.012 (1.003-1.030) 02/06/21 11:55 Urine Protein <15 mg/dl mg/dL (Negative) 02/06/21 11:55 Urine Glucose (UA) Neg mg/dL (Negative) 02/06/21 11:55 Urine Ketones Neg mg/dL (Negative) 02/06/21 11:55 Urine Blood Neg (Negative) 02/06/21 11:55 Urine Nitrite Neg (Negative) 02/06/21 11:55 Urine Bilirubin Neg (Negative) 02/06/21 11:55 Urine Urobilinogen 4.0 mg/dL (<2.0) 02/06/21 11:55 Ur Leukocyte Esterase Neg (Negative) 02/06/21 11:55 Urine WBC (Auto) < 1.0 /HPF (0.0-6.0) 02/06/21 11:55 Urine RBC (Auto) 1.0 /HPF (0.0-6.0) 02/06/21 11:55 U Epithel Cells (Auto) < 1.0 /HPF (0-13.0) 02/06/21 11:55 Urine Opiates Screen Negative 02/07/21 12:14 Urine Methadone Screen Negative 02/07/21 12:14 Ur Barbiturates Screen Negative 02/07/21 12:14 Ur Phencyclidine Scrn Negative 02/07/21 12:14 Ur Amphetamines Screen Negative 02/07/21 12:14 U Benzodiazepines Scrn Negative 02/07/21 12:14 Urine Cocaine Screen Negative 02/07/21 12:14 U Marijuana (THC) Screen Negative 02/07/21 12:14 Drugs of Abuse Note Disclamer 02/07/21 12:14 Plasma/Serum Alcohol < 0.01 % (0-0.07) 02/05/21 19:09 Syphilis IgG Antibody Nonreactive (NonReactive) 02/06/21 08:47 Coronavirus (PCR) Negative (Negative) 02/06/21 Unknown Hepatitis A IgM Ab Non-reactive (NonReactive) 02/06/21 08:47 Hep Bs Antigen Non-reactive (Negative) 02/06/21 08:47 Hep B Core IgM Ab Non-reactive (NonReactive) 02/06/21 08:47 Hepatitis C Antibody Non-reactive (NonReactive) 02/06/21 08:47 Microbiology: Microbiology 02/05/21 15:33 Peripheral/Venous Blood Culture - Preliminary NO GROWTH AFTER 72 HOURS 02/05/21 15:39 Peripheral/Venous Blood Culture - Preliminary NO GROWTH AFTER 72 HOURS 02/06/21 Unknown Urine,Clean Catch Urine Culture - Final NO GROWTH AFTER 48 HOURS Saha/IV: Voiding Method Condom Catheter Active Medications - Current Medications Current Medications: Generic Name Dose Route Start Last Admin Trade Name Freq PRN Reason Stop Dose Admin Acetaminophen 650 mg 02/05/21 20:32 Acetaminophen 325 Mg Tab PO Q4H PRN Pain MILD(1-3)/Fever >100.5/JOVEL Albuterol 2.5 mg 02/05/21 20:44 Albuterol 2.5 Mg/3 Ml Nebu IH Q4HRT PRN Shortness Of Breath Chlordiazepoxide HCl 50 mg 02/07/21 10:04 Chlordiazepoxide 25 Mg Cap PO Q1H PRN CIWA-Ar 8-15 Chlordiazepoxide HCl 100 mg 02/07/21 10:04 Chlordiazepoxide 25 Mg Cap PO Q1H PRN CIWA-Ar 16-25 Famotidine 20 mg 02/05/21 22:00 02/09/21 09:21 Famotidine 20 Mg/2 Ml Inj IV 20 mg BID ARMIN Administration Heparin Sodium (Porcine) 5,000 unit 02/06/21 10:00 02/09/21 09:22 Heparin 5,000 Unit/1 Ml Vial SUB-Q 5,000 unit Q12HR ARMIN Administration Ceftriaxone Sodium 2 gm in 100 mls @ 200 mls/hr 02/06/21 18:00 02/08/21 17:40 Rocephin/Ns 2 Gm/100 Ml IV 02/10/21 18:29 200 mls/hr Q24H ARMIN Administration Protocol Azithromycin 500 mg in 250 mls @ 250 mls/hr 02/07/21 16:00 02/08/21 16:14 Zithromax/Ns IV 250 mls/hr Q24H ARMIN Administration Thiamine HCl 100 mg/ Folic 1,011.2 mls @ 100 mls/hr 02/07/21 16:00 02/08/21 17:41 Acid 1 mg/ Multivitamins/ IV 100 mls/hr Minerals 10 ml/ Sodium Q24H ARMIN Administration Chloride Thiamine HCl 400 mg/ Sodium 54 mls @ 100 mls/hr 02/08/21 08:00 02/09/21 09:27 Chloride IV 100 mls/hr TID ARMIN Administration Potassium Chloride 20 meq/ 1,010 mls @ 100 mls/hr 02/08/21 17:00 02/09/21 06:23 Lactated Ringer's IV 100 mls/hr DIRECT ARMIN Administration Lorazepam 2 mg 02/05/21 17:33 02/09/21 06:23 Lorazepam 2 Mg/Ml Vial IV 2 mg Q1HR PRN Administration [facility] 8-15 Lorazepam 4 mg 02/07/21 10:13 02/08/21 09:56 Lorazepam 2 Mg/Ml Vial IV 4 mg Q1H PRN Administration [facility] 16-25 Metoclopramide HCl 10 mg 02/05/21 20:33 Metoclopramide 10 Mg/2 Ml Inj IV Q6H PRN Nausea And Vomiting Metoprolol Tartrate 5 mg 02/09/21 08:00 02/09/21 09:21 Metoprolol Tartrate 5 Mg/5 Ml Inj IV 5 mg Q6HR ARMIN Administration Morphine Sulfate 2 mg 02/05/21 20:33 Morphine 2 Mg/1 Ml Inj IV Q4H PRN Pain, Moderate (4-6) Ondansetron HCl 4 mg 02/05/21 20:32 Ondansetron 4 Mg/2 Ml Inj IV Q8H PRN Nausea And Vomiting Sodium Chloride 10 ml 02/05/21 22:00 02/09/21 09:22 Sodium Chloride 0.9% 10 Ml Flush Syringe IV 10 ml BID ARMIN Administration Sodium Chloride 10 ml 02/05/21 20:32 Sodium Chloride 0.9% 10 Ml Flush Syringe IV PRN PRN LINE FLUSH
[2021-02-09] MEDS: AZITHROMYCIN/NS 500 MG/250 ML 500 MG/250 ML BAG IV SCH (16:49)
[2021-02-09] MEDS: THIAMINE 100 MG, FOLIC ACID 1 MG, MULTIPLE VITAMIN INJ, ADULT 10 ML in SODIUM CHLORIDE ... IV SCH (16:49)
[2021-02-09] MEDS: cefTRIAXone/NS 2 GM/100 ML 2 GM/100 ML BAG IV SCH (18:09)
[2021-02-10] MEDS: METOPROLOL TARTRATE 5 MG/5 ML INJ IV SCH ×4 (00:26→17:04)
[2021-02-10] MEDS: LORazepam 2 MG/ML VIAL IV PRN ×6 (00:27→23:13)
--- NOTE | 2021-02-10 04:26 | XRay Report ---
XR abdomen 1V ap INDICATION: Ng-tube placement COMPARISON: CT abdomen 02/05/2021 FINDINGS/IMPRESSION: The feeding tube coils and terminates in the distal stomach. Signer Name: Jc Ochoa MD Signed: 02/10/2021 4:21 AM Workstation Name: [id number]
[2021-02-10] MEDS ORDERED: SIMPLE SYRUP 15 ML FEEDTUBE PRN ×2 (08:00)
[2021-02-10] MEDS ORDERED: LIPASE 10,500/PROTEASE 25,000/AMYLASE 43,750 (UNITS) DR CAP FEEDTUBE PRN (08:00)
[2021-02-10] MEDS ORDERED: SODIUM BICARBONATE 325 MG TAB FEEDTUBE PRN (08:00)
[2021-02-10] MEDS: FAMOTIDINE 20 MG/2 ML INJ IV SCH ×2 (11:10→21:41)
[2021-02-10] MEDS: THIAMINE 400 MG in SODIUM CHLORIDE 0.9% 50 ML IV SCH ×3 (11:10→21:39)
[2021-02-10] MEDS: HEPARIN 5,000 UNIT/1 ML VIAL SUB-Q SCH ×2 (11:10→21:41)
--- NOTE | 2021-02-10 16:08 | Progress Note ---
Assessment and Plan Assessment and plan: 35-year-old -Indian male with a past medical history of alcohol dependence who presents with bilateral pneumonia. Acute encephalopathy secondary to possible alcohol withdrawal Wernicke's alcoholic encephalopathy? [facility] protocol Ammonia level Syphilis pending Librium p.o. if the patient is able to tolerate p.o. Banana bag 400 mg IV thiamine 3 times daily for at least 2 days, observe response Patient currently n.p.o. at this time Accu-Cheks every 6 hours 02/07/2021 CT scan of the brain negative for any acute abnormalities Bilateral pneumonia, treat committee acquired pneumonia versus aspiration pneumonia Current Visit: Yes Status: Acute Plan to address problem: IV Zithromax and IV ceftriaxone procalcitonin is elevated Patient is Covid negative Blood cultures are negative Hepatic steatosis Most likely secondary to alcohol use INR normal Hepatitis panel normal Dysphagia secondary to encephalopathy NG tube Nutrition consulted for tube feeds Tube feeds running appropriately. Elevated lactic acidosis Resolved Bicarb is low Sodium bicarb fluids discontinued Normal lactic acid Transaminitis Current Visit: Yes Status: Acute Plan to address problem: Secondary to EtOH use Hepatitis normal Currently downtrending and resolving EtOH dependence Current Visit: Yes Status: Chronic Qualifiers: Substance use status: uncomplicated Qualified Code(s): F10.20 - Alcohol dependence, uncomplicated Plan to address problem: Patient initiated on [facility] protocol DVT prophylaxis Current Visit: Yes Status: Acute Plan to address problem: On heparin and GI prophylaxis Disposition: Continue treatment for alcohol withdrawal. Patient is improving, continue tube feeds and thiamine supplementation. History Interval history: 02/06/2021: Patient seen and examined, seems little bit confused, no signs of al cohol withdrawal at this time, denies any hallucinations 02/07/2021: Patient seen and examined, nonpurposeful lower and upper extremity movements, patient is confused, patient minimally verbal, seems to be withdrawing from alcohol. Patient was given 2 mg of Ativan this morning. Attempted to call family, no answer. 02/08/2021: Events noted overnight, patient was, floor, completely agitated with more awake. Ativan given for continued withdrawal. 02/09/2021: Patient continues to be encephalopathic, minimal response, attempted to say his name but voice is garbled, spoke with the bedside nurse, patient is definitely not able to swallow at this time. Spoke with the mother, we will put a NG tube to allow for tube feeds and allow for more long-acting benzodiazepines which will help in his recovery faster. Mother is amenable to tube feeds. 02/10/2021: Patient has improved, starting to speak, still lethargic. Tube feeds are running. Patient is making good progress at this time. Updated mother as to her son's condition. Hospitalist Physical - Physical exam Narrative exam: General appearance: no acute distress, well-nourished EENT: PERRL, EOM intact, hearing intact, clear oral mucosa Respiratory: bilateral CTA, negative: rales, rhonchi, wheezing Cardiovascular: Regular rate/rhythm, Normal S1 & S2. No gallop, rub Extremities: Patient in four-point restraints, no ischemia, No edema in lower extremities, normal temperature, normal color, Full ROM Abdominal: NG tube, soft, no tenderness, mild distention of abdomen, no fluid wave, normal bowel sounds Integumentary: Present: clear, warm, dry no wounds, no erythema noted Neurologic: CNII-XII intact, nonpurposeful upper and lower extremity movements, lethargic, confused, garbled speech - Constitutional Vitals: Temp Pulse Resp BP Pulse Ox 98.3 F 106 H 20 149/92 97 02/10/21 11:54 02/10/21 12:26 02/10/21 11:54 02/10/21 12:26 02/10/21 11:54 HEART Score - HEART Score EKG: Normal Age: < 45 Risk factors: 1-2 risk factors Troponin: Troponin T < 0.010 ng/mL (0.00-0.029) 02/05/21 15:33 Troponin: < normal limit - Critical Actions Critical Actions: 0-3 pts:0.9-1.7%risk of adverse cardiac event.Candidate for discharge Results - Labs CBC & Chem 7: 02/08/21 05:07 02/09/21 05:01 Labs: Laboratory Last Values WBC 10.9 K/mm3 (4.5-11.0) 02/08/21 05:07 RBC 3.70 M/mm3 (3.65-5.03) 02/08/21 05:07 Hgb 13.0 gm/dl (11.8-15.2) 02/08/21 05:07 Hct 38.5 % (35.5-45.6) 02/08/21 05:07 MCV 104 fl (84-94) H 02/08/21 05:07 MCH 35 pg (28-32) H 02/08/21 05:07 MCHC 34 % (32-34) 02/08/21 05:07 RDW 16.8 % (13.2-15.2) H 02/08/21 05:07 Plt Count 157 K/mm3 (140-440) 02/08/21 05:07 Lymph % (Auto) 22.2 % (13.4-35.0) 02/06/21 08:47 [place] % (Auto) 6.8 % (0.0-7.3) 02/06/21 08:47 Eos % (Auto) 1.7 % (0.0-4.3) 02/06/21 08:47 Baso % (Auto) 1.2 % (0.0-1.8) 02/06/21 08:47 Lymph # (Auto) 2.6 K/mm3 (1.2-5.4) 02/06/21 08:47 [place] # (Auto) 0.8 K/mm3 (0.0-0.8) 02/06/21 08:47 Eos # (Auto) 0.2 K/mm3 (0.0-0.4) 02/06/21 08:47 Baso # (Auto) 0.1 K/mm3 (0.0-0.1) 02/06/21 08:47 Seg Neutrophils % 68.1 % (40.0-70.0) 02/06/21 08:47 Seg Neutrophils # 8.0 K/mm3 (1.8-7.7) H 02/06/21 08:47 PT 14.9 Sec. (12.2-14.9) 02/05/21 15:33 INR 1.11 (0.87-1.13) 02/05/21 15:33 D-Dimer 153.28 ng/mlDDU (0-234) 02/05/21 15:33 VBG pH 7.472 (7.320-7.420) H 02/05/21 15:33 Sodium 139 mmol/L (137-145) 02/09/21 05:01 Potassium 3.6 mmol/L (3.6-5.0) 02/09/21 05:01 Chloride 103.0 mmol/L (98-107) 02/09/21 05:01 Carbon Dioxide 20 mmol/L (22-30) L 02/09/21 05:01 Anion Gap 20 mmol/L 02/09/21 05:01 BUN 2 mg/dL (9-20) L 02/09/21 05:01 Creatinine 0.4 mg/dL (0.8-1.3) L 02/09/21 05:01 Estimated GFR > 60 ml/min 02/09/21 05:01 BUN/Creatinine Ratio 5 % 02/09/21 05:01 Glucose 86 mg/dL (75-100) 02/09/21 05:01 POC Glucose 90 mg/dL (70-105) 02/10/21 11:51 Hemoglobin A1c 4.4 % (4-6) 02/06/21 08:47 Lactic Acid 0.90 mmol/L (0.7-2.0) 02/07/21 10:52 Calcium 9.2 mg/dL (8.4-10.2) 02/09/21 05:01 Magnesium 1.60 mg/dL (1.7-2.3) L 02/07/21 05:17 Total Bilirubin 1.10 mg/dL (0.1-1.2) 02/09/21 05:01 AST 106 units/L (5-40) H 02/09/21 05:01 ALT 29 units/L (7-56) 02/09/21 05:01 Alkaline Phosphatase 281 units/L (35-129) H 02/09/21 05:01 Ammonia 39.0 umol/L (25-60) 02/07/21 10:52 Troponin T < 0.010 ng/mL (0.00-0.029) 02/05/21 15:33 NT-Pro-B Natriuret Pep 5.14 pg/mL (0-450) 02/05/21 15:33 Total Protein 6.7 g/dL (6.3-8.2) 02/09/21 05:01 Albumin 3.6 g/dL (3.9-5) L 02/09/21 05:01 Albumin/Globulin Ratio 1.2 % 02/09/21 05:01 Vitamin B12 624.8 pg/mL (211-911) 02/06/21 08:47 Procalcitonin 0.17 ng/mL (<0.15) 02/06/21 08:47 Urine Color Yellow (Yellow) 02/06/21 11:55 Urine Turbidity Clear (Clear) 02/06/21 11:55 Urine pH 8.0 (5.0-7.0) H 02/06/21 11:55 Ur Specific [place] 1.012 (1.003-1.030) 02/06/21 11:55 Urine Protein <15 mg/dl mg/dL (Negative) 02/06/21 11:55 Urine Glucose (UA) Neg mg/dL (Negative) 02/06/21 11:55 Urine Ketones Neg mg/dL (Negative) 02/06/21 11:55 Urine Blood Neg (Negative) 02/06/21 11:55 Urine Nitrite Neg (Negative) 02/06/21 11:55 Urine Bilirubin Neg (Negative) 02/06/21 11:55 Urine Urobilinogen 4.0 mg/dL (<2.0) 02/06/21 11:55 Ur Leukocyte Esterase Neg (Negative) 02/06/21 11:55 Urine WBC (Auto) < 1.0 /HPF (0.0-6.0) 02/06/21 11:55 Urine RBC (Auto) 1.0 /HPF (0.0-6.0) 02/06/21 11:55 U Epithel Cells (Auto) < 1.0 /HPF (0-13.0) 02/06/21 11:55 Urine Opiates Screen Negative 02/07/21 12:14 Urine Methadone Screen Negative 02/07/21 12:14 Ur Barbiturates Screen Negative 02/07/21 12:14 Ur Phencyclidine Scrn Negative 02/07/21 12:14 Ur Amphetamines Screen Negative 02/07/21 12:14 U Benzodiazepines Scrn Negative 02/07/21 12:14 Urine Cocaine Screen Negative 02/07/21 12:14 U Marijuana (THC) Screen Negative 02/07/21 12:14 Drugs of Abuse Note Disclamer 02/07/21 12:14 Plasma/Serum Alcohol < 0.01 % (0-0.07) 02/05/21 19:09 Syphilis IgG Antibody Nonreactive (NonReactive) 02/06/21 08:47 Coronavirus (PCR) Negative (Negative) 02/06/21 Unknown Hepatitis A IgM Ab Non-reactive (NonReactive) 02/06/21 08:47 Hep Bs Antigen Non-reactive (Negative) 02/06/21 08:47 Hep B Core IgM Ab Non-reactive (NonReactive) 02/06/21 08:47 Hepatitis C Antibody Non-reactive (NonReactive) 02/06/21 08:47 Microbiology: Microbiology 02/05/21 15:33 Peripheral/Venous Blood Culture - Preliminary NO GROWTH AFTER 4 DAYS 02/05/21 15:39 Peripheral/Venous Blood Culture - Preliminary NO GROWTH AFTER 4 DAYS Saha/IV: Voiding Method Condom Catheter Active Medications - Current Medications Current Medications: Generic Name Dose Route Start Last Admin Trade Name Freq PRN Reason Stop Dose Admin Acetaminophen 650 mg 02/05/21 20:32 Acetaminophen 325 Mg Tab PO Q4H PRN Pain MILD(1-3)/Fever >100.5/JOVEL Albuterol 2.5 mg 02/05/21 20:44 Albuterol 2.5 Mg/3 Ml Nebu IH Q4HRT PRN Shortness Of Breath Lipase/Protease/Amylase 1 each 02/10/21 08:00 Lipase 10,500/Protease 25,000/Amylase 43,750 (Units) Dr Arroyo FEEDTUBE PRN PRN For Clogged Feeding Tube Chlordiazepoxide HCl 50 mg 02/07/21 10:04 Chlordiazepoxide 25 Mg Cap PO Q1H PRN CIWA-Ar 8-15 Chlordiazepoxide HCl 100 mg 02/07/21 10:04 Chlordiazepoxide 25 Mg Cap PO Q1H PRN CIWA-Ar 16-25 Famotidine 20 mg 02/05/21 22:00 02/10/21 11:10 Famotidine 20 Mg/2 Ml Inj IV 20 mg BID ARMIN Administration Heparin Sodium (Porcine) 5,000 unit 02/06/21 10:00 02/10/21 11:10 Heparin 5,000 Unit/1 Ml Vial SUB-Q 5,000 unit Q12HR ARMIN Administration Ceftriaxone Sodium 2 gm in 100 mls @ 200 mls/hr 02/06/21 18:00 02/09/21 18:09 Rocephin/Ns 2 Gm/100 Ml IV 02/10/21 18:29 200 mls/hr Q24H ARMIN Administration Protocol Azithromycin 500 mg in 250 mls @ 250 mls/hr 02/07/21 16:00 02/09/21 16:49 Zithromax/Ns IV 02/11/21 16:59 250 mls/hr Q24H ARMIN Administration Thiamine HCl 100 mg/ Folic 1,011.2 mls @ 100 mls/hr 02/07/21 16:00 02/09/21 16:49 Acid 1 mg/ Multivitamins/ IV 100 mls/hr Minerals 10 ml/ Sodium Q24H ARMIN Administration Chloride Thiamine HCl 400 mg/ Sodium 54 mls @ 100 mls/hr 02/08/21 08:00 02/10/21 11:10 Chloride IV 100 mls/hr TID ARMIN Administration Potassium Chloride 20 meq/ 1,010 mls @ 100 mls/hr 02/08/21 17:00 02/09/21 16:50 Lactated Ringer's IV 100 mls/hr DIRECT ARMIN Administration Lorazepam 2 mg 02/05/21 17:33 02/10/21 12:36 Lorazepam 2 Mg/Ml Vial IV 2 mg Q1HR PRN Administration CIWA-Ar 8-15 Lorazepam 4 mg 02/07/21 10:13 02/10/21 04:58 Lorazepam 2 Mg/Ml Vial IV 4 mg Q1H PRN Administration CIWA-Ar 16-25 Metoclopramide HCl 10 mg 02/05/21 20:33 Metoclopramide 10 Mg/2 Ml Inj IV Q6H PRN Nausea And Vomiting Metoprolol Tartrate 5 mg 02/09/21 08:00 02/10/21 12:26 Metoprolol Tartrate 5 Mg/5 Ml Inj IV 5 mg Q6HR ARMIN Administration Morphine Sulfate 2 mg 02/05/21 20:33 Morphine 2 Mg/1 Ml Inj IV Q4H PRN Pain, Moderate (4-6) Ondansetron HCl 4 mg 02/05/21 20:32 Ondansetron 4 Mg/2 Ml Inj IV Q8H PRN Nausea And Vomiting Simple Syrup 15 ml 02/10/21 08:00 Simple Syrup 15 Ml FEEDTUBE PRN PRN Hypoglycemia Simple Syrup 30 ml 02/10/21 08:00 Simple Syrup 15 Ml FEEDTUBE PRN PRN Hypoglycemia Sodium Bicarbonate 325 mg 02/10/21 08:00 Sodium Bicarbonate 325 Mg Tab FEEDTUBE PRN PRN For Clogged Feeding Tube Sodium Chloride 10 ml 06/30/21 22:00 02/10/21 11:10 Sodium Chloride 0.9% 10 Ml Flush Syringe IV 10 ml BID ARMIN Administration Sodium Chloride 10 ml 02/05/21 20:32 02/10/21 04:59 Sodium Chloride 0.9% 10 Ml Flush Syringe IV 10 ml PRN PRN Administration LINE FLUSH Nutrition/Malnutrition Assess - Dietary Evaluation Nutrition/Malnutrition Findings: Nutrition Notes Start: 02/10/21 07:42 Freq: Status: Active Protocol: Document 02/10/21 07:42 (Rec: 02/10/21 07:49 [email or web address]) Nutrition Notes Need for Assessment generated from: MD Order Initial or Follow up Assessment Current Diagnosis Sepsis Other Pertinent Diagnosis alcohol dependence, pneu, transaminitis, stearosis of liver Current Diet NPO Labs/Tests BUN 2 Cr 0.4 Pertinent Medications Thaimine/folic acid/MVI Kcl 20 mEq in LD at 100 ml/hr Height 5 ft 4 in Weight 65.8 kg [place] Body Weight (kg) 59.09 BMI 24.9 Weight Status Appropriate Subjective/Other Information MD order for TF. Pt with NGT due to dysphagia 2/2 EtOH intoxication/withdrawal. Burn Absent Trauma Absent GI Symptoms None Current % PO Negligible Minimum of two criteria No physical signs of malnutrition #1 Nutrition Diagnosis Inadequate oral intake Etiology EtOH withdrawal As Evidenced by Signs and Symptoms dysphagia, pt with NGT Is patient on ventilator? No Is Patient Ambulatory and/or Out of Bed No REE-([facility]-confined to bed) 0643.342 Calculation Used for Recommendations [facility] Additional Notes Protein: (0.8-1g/kg) 53-66g Fluid: 1 ml/kcal Nutrition Intervention Change Diet Order: Start TF Nutrition Support: Osmolite 1.5 at 50ml/hr Flush 150 ml q4h Kcal 1,800 Protein (gm) 75 Fluid (mL) 914 Goal #1 Meet at least 75% of protein and energy needs via TF Anticipated Discharge Needs: Unable to determine at this time Follow-Up By: 02/12/21 Additional Comments FU for TF start and tolerance
[2021-02-10] MEDS: THIAMINE 100 MG, FOLIC ACID 1 MG, MULTIPLE VITAMIN INJ, ADULT 10 ML in SODIUM CHLORIDE ... IV SCH (17:24)
[2021-02-10] MEDS: cefTRIAXone/NS 2 GM/100 ML 2 GM/100 ML BAG IV SCH (17:31)
[2021-02-10] MEDS: AZITHROMYCIN/NS 500 MG/250 ML 500 MG/250 ML BAG IV SCH (18:07)
[2021-02-11] MEDS: METOPROLOL TARTRATE 5 MG/5 ML INJ IV SCH ×4 (01:56→19:07)
[2021-02-11 05:49] LABS: Alanine Aminotransferase 29 units/L (7-56); Albumin 3.8 g/dL (3.9-5); Blood Urea Nitrogen 2 mg/dL (9-20); Calcium 9.8 mg/dL (8.4-10.2); Hemolysis Index 1
[2021-02-11 06:10] LABS: BUN/Creatinine Ratio 4
[2021-02-11] MEDS: POTASSIUM CHLORIDE 20 MEQ in LACTATED RINGERS 1,000 ML IV SCH ×2 (06:39→22:18)
[2021-02-11] MEDS ORDERED: POTASSIUM CHLORIDE ER 20 MEQ TAB PO NR (09:50)
[2021-02-11] MEDS: THIAMINE 400 MG in SODIUM CHLORIDE 0.9% 50 ML IV SCH ×2 (09:56→19:03)
[2021-02-11] MEDS: FAMOTIDINE 20 MG/2 ML INJ IV SCH ×2 (09:57→22:22)
[2021-02-11] MEDS: HEPARIN 5,000 UNIT/1 ML VIAL SUB-Q SCH ×2 (09:58→22:22)
[2021-02-11] MEDS ORDERED: POTASSIUM CHLORIDE 20 MEQ PACKET FEEDTUBE NR (10:30)
--- NOTE | 2021-02-11 16:48 | Progress Note ---
Assessment and Plan 35-year-old -[place] male with a past medical history of alcohol dependence who presents with bilateral pneumonia. --Acute encephalopathy secondary to possible alcohol withdrawal Wernicke's alcoholic encephalopathy? [facility] protocol Ammonia level normal Syphilis neg Librium p.o. if the patient is able to tolerate p.o. Banana bag 400 mg IV thiamine 3 times daily for at least 2 days, observe response Patient currently n.p.o. at this time Accu-Cheks every 6 hours, on TF 02/07/2021 CT scan of the brain negative for any acute abnormalities --Bilateral pneumonia, treat committee acquired pneumonia versus aspiration pneumonia IV Zithromax and IV ceftriaxone procalcitonin is elevated Patient is Covid negative Blood cultures are negative --Hepatic steatosis Most likely secondary to alcohol use INR normal Hepatitis panel normal --Dysphagia secondary to encephalopathy NG tube Nutrition consulted for tube feeds Tube feeds running appropriately. --Elevated lactic acidosis Resolved Bicarb is low Sodium bicarb fluids discontinued Normal lactic acid --Transaminitis Secondary to EtOH use Hepatitis normal Currently downtrending and resolving --EtOH dependence Patient initiated on [facility] protocol --DVT prophylaxis On heparin and GI prophylaxis Disposition: Continue treatment for alcohol withdrawal. Patient is improving, continue tube feeds and thiamine supplementation. Brief History: 02/06/2021: Patient seen and examined, seems little bit confused, no signs of alcohol withdrawal at this time, denies any hallucinations 02/07/2021: Patient seen and examined, nonpurposeful lower and upper extremity movements, patient is confused, patient minimally verbal, seems to be withd rawing from alcohol. Patient was given 2 mg of Ativan this morning. Attempted to call family, no answer. 02/08/2021: Events noted overnight, patient was, floor, completely agitated with more awake. Ativan given for continued withdrawal. 02/09/2021: Patient continues to be encephalopathic, minimal response, attempted to say his name but voice is garbled, spoke with the bedside nurse, patient is definitely not able to swallow at this time. Spoke with the mother, we will put a NG tube to allow for tube feeds and allow for more long-acting benzodiazepines which will help in his recovery faster. Mother is amenable to tube feeds. 02/10/2021: Patient has improved, starting to speak, still lethargic. Tube feeds are running. Patient is making good progress at this time. Updated mother as to her son's condition. 02/11/21: Patient placed back on four-point restraint, started on tube feeding, remains confused. Continue supportive care follow clinically Subjective Date of service: 02/11/21 Interval history: Patient seen and examined. Medical records and medication list reviewed. No acute event overnight noted by the RN. Patient became agitated again this afternoon and requiring restraints Discussed plan of care at bedside with patient's RN. Objective - Exam Narrative Exam: GENERAL: well-developed and well-nourished male lying on bed appeared to be very lethargic and restrained. HEENT: Normocephalic. Atraumatic. No conjunctival congestion or icterus. Patient has moist mucous membranes. NECK: Supple. Trachea midline. CHEST/LUNGS: Clear to auscultated bilaterally, breathing nonlabored. No wheezes crackles or rhonchi. HEART/CARDIOVASCULAR: Regular in rate and rhythm. S1 and S2 positive. ABDOMEN: Abdomen is soft, nontender. Patient has normal bowel sounds. SKIN: There is no rash. Warm and dry. NEURO: No focal motor deficit. Does not follow commands as patient is very lethargic MUSCULOSKELETAL: No joint effusion or tenderness. EXTRIMITY: No edema, no cyanosis or clubbing. PSYCH: Unable to assess. - Constitutional Vitals: Vital Signs - 12hr 02/11/21 02/11/21 02/11/21 05:22 06:26 08:35 Temperature 100.2 F H 99.2 F Pulse Rate 117 H 120 H 104 H Respiratory 18 18 Rate Blood Pressure 140/89 140/89 143/90 O2 Sat by Pulse 91 97 Oximetry 02/11/21 12:45 Temperature 99.0 F Pulse Rate 105 H Respiratory 18 Rate Blood Pressure 137/88 O2 Sat by Pulse 100 Oximetry - Labs CBC & Chem 7: 02/08/21 05:07 02/12/21 04:24 Labs: Abnormal lab results 02/11/21 02/11/21 02/11/21 Range/Units 04:50 06:11 12:45 Potassium 3.2 L (3.6-5.0) mmol/L Chloride 97.9 L (98-107) mmol/L BUN 2 L (9-20) mg/dL Creatinine 0.5 L (0.8-1.3) mg/dL Glucose 105 H (75-100) mg/dL POC Glucose 116 H 132 H (70-105) mg/dL AST 92 H (5-40) units/L Alkaline Phosphatase 271 H (35-129) units/L Albumin 3.8 L (3.9-5) g/dL HEART Score - HEART Score EKG: Normal Age: < 45 Risk factors: 1-2 risk factors Troponin: Troponin T < 0.010 ng/mL (0.00-0.029) 02/05/21 15:33 Troponin: < normal limit - Critical Actions Critical Actions: 0-3 pts:0.9-1.7%risk of adverse cardiac event.Candidate for discharge
[2021-02-11] MEDS ORDERED: POTASSIUM CHLORIDE ER 20 MEQ TAB PO SCH (17:00)
[2021-02-11] MEDS: AZITHROMYCIN/NS 500 MG/250 ML 500 MG/250 ML BAG IV SCH (19:11)
[2021-02-11] MEDS ORDERED: POTASSIUM CHLORIDE 20 MEQ PACKET FEEDTUBE SCH (20:00)
[2021-02-12] MEDS: METOPROLOL TARTRATE 5 MG/5 ML INJ IV SCH ×5 (01:02→23:09)
[2021-02-12] MEDS: LORazepam 2 MG/ML VIAL IV PRN ×2 (01:17→10:43)
[2021-02-12 05:31] LABS: Calcium 10.4 mg/dL (8.4-10.2); Hemolysis Index 2
[2021-02-12 05:36] LABS: BUN/Creatinine Ratio 3; Blood Urea Nitrogen < 1 mg/dL (9-20)
[2021-02-12] MEDS: POTASSIUM CHLORIDE 20 MEQ in LACTATED RINGERS 1,000 ML IV SCH (06:49)
[2021-02-12] MEDS: THIAMINE 100 MG, FOLIC ACID 1 MG, MULTIPLE VITAMIN INJ, ADULT 10 ML in SODIUM CHLORIDE ... IV SCH (07:51)
[2021-02-12] MEDS: HEPARIN 5,000 UNIT/1 ML VIAL SUB-Q SCH ×2 (09:07→21:47)
[2021-02-12] MEDS: FAMOTIDINE 20 MG/2 ML INJ IV SCH ×2 (09:07→21:48)
--- NOTE | 2021-02-12 16:42 | Progress Note ---
Assessment and Plan 35-year-old -[place] male with a past medical history of alcohol dependence who presents with bilateral pneumonia. --Acute encephalopathy secondary to possible alcohol withdrawal Wernicke's alcoholic encephalopathy? [facility] protocol Ammonia level normal Syphilis neg Librium p.o. if the patient is able to tolerate p.o. Banana bag s/p 400 mg IV thiamine 3 times daily for at least 2 days, Patient currently n.p.o. at this time Accu-Cheks every 6 hours, on TF 02/07/2021 CT scan of the brain negative for any acute abnormalities --Bilateral pneumonia, treat committee acquired pneumonia versus aspiration pneumonia IV Zithromax and IV ceftriaxone procalcitonin is elevated Patient is Covid negative Blood cultures are negative --Hepatic steatosis Most likely secondary to alcohol use INR normal Hepatitis panel normal --Dysphagia secondary to encephalopathy NG tube Nutrition consulted for tube feeds Tube feeds running appropriately. --Elevated lactic acidosis Resolved Bicarb is low Sodium bicarb fluids discontinued Normal lactic acid --Transaminitis Secondary to EtOH use Hepatitis normal Currently downtrending and resolving --EtOH dependence Patient initiated on [facility] protocol --DVT prophylaxis On heparin and GI prophylaxis Disposition: Continue treatment for alcohol withdrawal. Patient is improving, start on GI soft diet today Brief History: 02/06/2021: Patient seen and examined, seems little bit confused, no signs of alcohol withdrawal at this time, denies any hallucinations 02/07/2021: Patient seen and examined, nonpurposeful lower and upper extremity movements, patient is confused, patient minimally verbal, seems to be withdrawing from alcohol. Patient was given 2 mg of Ativan this morning. Attempted to call family, no answer. 02/08/2021: Events noted overnight, patient was, floor, completely agitated with more awake. Ativan given for continued withdrawal. 02/09/2021: Patient continues to be encephalopathic, minimal response, attempted to say his name but voice is garbled, spoke with the bedside nurse, patient is definitely not able to swallow at this time. Spoke with the mother, we will put a NG tube to allow for tube feeds and allow for more long-acting benzodiazepines which will help in his recovery faster. Mother is amenable to tube feeds. 02/10/2021: Patient has improved, starting to speak, still lethargic. Tube feeds are running. Patient is making good progress at this time. Updated mother as to her son's condition. 02/11/21: Patient placed back on four-point restraint, started on tube feeding, remains confused. Continue supportive care follow clinically 02/12/21: Patient was cooperative this morning, able to tolerate GI soft diet. Later on in the day he became confused and was trying to get off from the bed not following commands. Renewed restraining order back, order for as needed Haldol for agitation. Discontinued Ativan. We will also consult psych. Continue to follow clinically. Subjective Date of service: 02/12/21 Interval history: Patient seen and examined. Medical records and medication list reviewed. No acute event overnight noted by the RN. Patient passed the swallow eval but remains agitated at the later on the day Discussed plan of care at bedside with patient's RN. Objective - Exam Narrative Exam: GENERAL: well-developed and well-nourished male lying on bed appeared to be drowsy but will open eyes with verbal command HEENT: Normocephalic. Atraumatic. No conjunctival congestion or icterus. Patient has moist mucous membranes. NECK: Supple. Trachea midline. CHEST/LUNGS: Clear to auscultated bilaterally, breathing nonlabored. No wheezes crackles or rhonchi. HEART/CARDIOVASCULAR: Regular in rate and rhythm. S1 and S2 positive. ABDOMEN: Abdomen is soft, nontender. Patient has normal bowel sounds. SKIN: There is no rash. Warm and dry. NEURO: No focal motor deficit. Follows commands MUSCULOSKELETAL: No joint effusion or tenderness. EXTRIMITY: No edema, no cyanosis or clubbing. PSYCH: Remains drowsy, speaks only few words. - Constitutional Vitals: Vital Signs - 12hr 02/12/21 02/12/21 02/12/21 05:57 07:57 10:00 Temperature 98.8 F Pulse Rate 94 H 96 H Respiratory 20 18 Rate Blood Pressure 138/89 162/100 O2 Sat by Pulse 96 98 Oximetry 02/12/21 02/12/21 02/12/21 12:43 12:51 14:00 Temperature 98.7 F Pulse Rate 96 H 90 98 H Respiratory 20 Rate Blood Pressure 162/100 145/93 O2 Sat by Pulse 98 Oximetry - Labs CBC & Chem 7: 02/08/21 05:07 02/12/21 04:24 Labs: Abnormal lab results 02/11/21 02/11/21 02/12/21 Range/Units 17:42 22:46 04:24 BUN < 1 L (9-20) mg/dL Creatinine 0.4 L (0.8-1.3) mg/dL Glucose 103 H (75-100) mg/dL POC Glucose 142 H 134 H (70-105) mg/dL Calcium 10.4 H (8.4-10.2) mg/dL 02/12/21 02/12/21 Range/Units 05:34 12:50 BUN (9-20) mg/dL Creatinine (0.8-1.3) mg/dL Glucose (75-100) mg/dL POC Glucose 111 H 124 H (70-105) mg/dL Calcium (8.4-10.2) mg/dL HEART Score - HEART Score EKG: Normal Age: < 45 Risk factors: 1-2 risk factors Troponin: Troponin T < 0.010 ng/mL (0.00-0.029) 02/05/21 15:33 Troponin: < normal limit - Critical Actions Critical Actions: 0-3 pts:0.9-1.7%risk of adverse cardiac event.Candidate for discharge
[2021-02-13] MEDS: HALOPERIDOL LACTATE 5 MG/1 ML INJ IM PRN ×2 (00:54→09:46)
[2021-02-13] MEDS: MORPHINE 2 MG/1 ML INJ IV PRN (00:56)
[2021-02-13] MEDS: METOPROLOL TARTRATE 5 MG/5 ML INJ IV SCH ×3 (05:37→18:18)
[2021-02-13] MEDS: HEPARIN 5,000 UNIT/1 ML VIAL SUB-Q SCH ×2 (09:33→21:42)
[2021-02-13] MEDS: FAMOTIDINE 20 MG/2 ML INJ IV SCH ×2 (09:33→21:43)
--- NOTE | 2021-02-13 11:15 | Event Note ---
Date: 02/13/21 The patient was seen today, but was unable to engage him in the interview. The patient is uncooperative. He initially is asleep but arouses after vigorous tactile stimuli. He says "what" then turns his head and doesn't respond further. Will reattempt later.
--- NOTE | 2021-02-13 15:45 | Progress Note ---
Assessment and Plan 35-year-old -[place]o male with a past medical history of alcohol dependence who presents with bilateral pneumonia. --Acute encephalopathy secondary to possible alcohol withdrawal Wernicke's alcoholic encephalopathy? [facility] protocol Ammonia level normal Syphilis neg Librium p.o. Banana bag s/p 400 mg IV thiamine 3 times daily for at least 2 days, Patient is tolerating diet Accu-Cheks every 6 hours, on TF 02/07/2021 CT scan of the brain negative for any acute abnormalities --Bilateral pneumonia, treat committee acquired pneumonia versus aspiration pneumonia IV Zithromax and IV ceftriaxone procalcitonin is elevated Patient is Covid negative Blood cultures are negative --Hepatic steatosis Most likely secondary to alcohol use INR normal Hepatitis panel normal --Dysphagia secondary to encephalopathy NG tube Nutrition consulted for tube feeds Tube feeds running appropriately. --Elevated lactic acidosis Resolved Bicarb is low Sodium bicarb fluids discontinued Normal lactic acid --Transaminitis Secondary to EtOH use Hepatitis normal Currently downtrending and resolving --EtOH dependence Patient initiated on [facility] protocol --DVT prophylaxis On heparin and GI prophylaxis Disposition: Continue treatment for alcohol withdrawal. Patient is improving, advance diet as tolerated Brief History: 02/06/2021: Patient seen and examined, seems little bit confused, no signs of alcohol withdrawal at this time, denies any hallucinations 02/07/2021: Patient seen and examined, nonpurposeful lower and upper extremity movements, patient is confused, patient minimally verbal, seems to be withdrawing from alcohol. Patient was given 2 mg of Ativan this morning. Attempted to call family, no answer. 02/08/2021: Events noted overnight, patient was, floor, completely agitated with more awake. Ativan given for continued withdrawal. 02/09/2021: Patient continues to be encephalopathic, minimal response, attempted to say his name but voice is garbled, spoke with the bedside nurse, patient is definitely not able to swallow at this time. Spoke with the mother, we will put a NG tube to allow for tube feeds and allow for more long-acting benzodiazepines which will help in his recovery faster. Mother is amenable to tube feeds. 02/10/2021: Patient has improved, starting to speak, still lethargic. Tube feeds are running. Patient is making good progress at this time. Updated mother as to her son's condition. 02/11/21: Patient placed back on four-point restraint, started on tube feeding, remains confused. Continue supportive care follow clinically 02/12/21: Patient was cooperative this morning, able to tolerate GI soft diet. Later on in the day he became confused and was trying to get off from the bed not following commands. Renewed restraining order back, order for as needed Haldol for agitation. Discontinued Ativan. We will also consult psych. Continue to follow clinically. 02/13/21: Patient seen and examined, resting on bed quietly. We will monitor off restrain today. Tolerating diet. Discussed with patient and mother by phone in details. Wait for mental health recommendation, DC planning when clinically more stable. Subjective Date of service: 02/13/21 Interval history: Patient seen and examined. Medical records and medication list reviewed. No acute event overnight noted by the RN. Patient tolerating diet and more cooperative Discussed plan of care at bedside with patient's RN and also with patient's mother by phone. Objective - Exam Narrative Exam: GENERAL: well-developed and well-nourished male lying on bed appeared in no apparent distress HEENT: Normocephalic. Atraumatic. No conjunctival congestion or icterus. Patient has moist mucous membranes. NECK: Supple. Trachea midline. CHEST/LUNGS: Clear to auscultated bilaterally, breathing nonlabored. No wheezes crackles or rhonchi. HEART/CARDIOVASCULAR: Regular in rate and rhythm. S1 and S2 positive. ABDOMEN: Abdomen is soft, nontender. Patient has normal bowel sounds. SKIN: There is no rash. Warm and dry. NEURO: No focal motor deficit. Follows commands MUSCULOSKELETAL: No joint effusion or tenderness. EXTRIMITY: No edema, no cyanosis or clubbing. PSYCH: Cooperative. - Constitutional Vitals: Vital Signs - 12hr 02/13/21 02/13/21 02/13/21 04:21 05:37 09:13 Temperature 99.1 F 98.8 F Pulse Rate 104 H 104 H 103 H Respiratory 16 18 Rate Blood Pressure 139/91 139/91 136/82 O2 Sat by Pulse 89 93 Oximetry 02/13/21 02/13/21 10:00 12:04 Temperature 98.8 F Pulse Rate 96 H 96 H Respiratory 18 Rate Blood Pressure 130/80 O2 Sat by Pulse 99 94 Oximetry - Labs CBC & Chem 7: 02/08/21 05:07 02/12/21 04:24 Labs: Abnormal lab results 02/12/21 02/12/21 02/13/21 Range/Units 17:17 23:16 11:29 POC Glucose 113 H 107 H 125 H (70-105) mg/dL HEART Score - HEART Score EKG: Normal Age: < 45 Risk factors: 1-2 risk factors Troponin: Troponin T < 0.010 ng/mL (0.00-0.029) 02/05/21 15:33 Troponin: < normal limit - Critical Actions Critical Actions: 0-3 pts:0.9-1.7%risk of adverse cardiac event.Candidate for discharge
[2021-02-13] MEDS ORDERED: NICOTINE 21 MG/24 HR PATCH TD SCH (22:00)
[2021-02-14] MEDS: METOPROLOL TARTRATE 5 MG/5 ML INJ IV SCH ×3 (00:08→13:37)
[2021-02-14] MEDS: HALOPERIDOL LACTATE 5 MG/1 ML INJ IM PRN ×2 (00:16→09:37)
[2021-02-14] MEDS: MORPHINE 2 MG/1 ML INJ IV PRN (00:17)
[2021-02-14] MEDS: FAMOTIDINE 20 MG/2 ML INJ IV SCH (09:38)
[2021-02-14] MEDS: HEPARIN 5,000 UNIT/1 ML VIAL SUB-Q SCH (09:38)
[2021-02-14 13:01] VITALS: BP 125/84
--- NOTE | 2021-02-14 13:35 | Discharge Summary ---
Providers - Providers Date of Admission: 02/05/21 18:50 Date of discharge: 02/14/21 Attending physician: VIVIEN CHÁVEZ 02/09/21 13:09 Consult to Dietitian/Nutrition [CONS] Routine Physician Instructions: Reason For Exam: NGT feeds, pt w/dysphagia 2/2 ETOH intoxication Reason for Consult: Write/Manage Tube Feeding 02/12/21 10:12 Physical Therapy Evaluation and Treat [CONS] Routine Comment: Reason For Exam: Debility 02/12/21 16:31 Consult to Mental Health [CONS] Routine Reason For Exam: delirium Primary care physician: PETERSON VIRK Hospitalization Condition: Serious Pertinent studies: CXR, abdomen XRY, CT abdomen/pelvis, CT head Hospital course: 35-year-old male with no significant past medical history comes in for chest tightness and shortness of breath and abdominal distention. Patient is a regular smoker about half a pack a day and also consumes alcohol on a regular basis. Patient had a low-grade fever of 100.2 and [address] abdomen pelvis showed Markedly hepatomegaly with moderate hepatic steatosis and Patchy groundglass airspace disease in the lungs. Patient was placed on empiric antibiotic and admitted to the hospital. Daily clinical course: 02/06/2021: Patient seen and examined, seems little bit confused, no signs of alcohol withdrawal at this time, denies any hallucinations 02/07/2021: Patient seen and examined, nonpurposeful lower and upper extremity movements, patient is confused, patient minimally verbal, seems to be withdrawing from alcohol. Patient was given 2 mg of Ativan this morning. Attempted to call family, no answer. Patient on CIWA protocol. CT head showed no acute process. 02/08/2021: Events noted overnight, patient was on floor, was very agitated. Ativan given for continued withdrawal. Continue current care with CIWA protocol and IV antibiotics. 02/09/2021: Patient continues to be encephalopathic, minimal response, attempted to say his name but voice is garbled, spoke with the bedside nurse, patient is definitely not able to swallow at this time. Spoke with the mother, we will put a NG tube to allow for tube feeds and allow for more long-acting benzodiazepines which will help in his recovery faster. Mother is amenable to tube feeds. 02/10/2021: Patient has improved, starting to speak, still lethargic. Tube feeds are running. Patient is making good progress at this time. Updated mother as to her son's condition. 02/11/21: Patient placed back on four-point restraint, started on tube feeding, remains confused. Continue supportive care follow clinically 02/12/21: Patient was cooperative this morning, able to tolerate GI soft diet. Later on in the day he became confused and was trying to get off from the bed, not following commands. Renewed restraining order back, order for as needed Haldol for agitation. Discontinued Ativan. We will also consult psych. Continue to follow clinically. 02/13/21: Patient seen and examined, resting on bed quietly. We will monitor off restrain today. Tolerating diet. Discussed with patient and mother by phone in details. Wait for mental health recommendation, DC planning when clinically more stable. Patient is alert awake and oriented x3 today. 02/14/21: Patient had no agitation or confusion overnight. His vital has been stable, he is tolerating diet, off restrain for more than 24 hours. Discussed with mother in details about plan of care and also with the patient. Patient verbalized understanding and promised quitting drinking. Patient was recommended to follow-up at outpatient alcohol rehab center for group therapy. Patient was then discharged home in stable condition with outpatient follow-up. Patient completed antibiotic therapy for bilateral pneumonia and no additional antibiotic prescription was given on discharge. Disposition: DC-01 TO HOME OR SELFCARE Final Discharge Diagnosis (Prints w/discharge instructions): --Acute encephalopathy secondary to possible alcohol withdrawal. --Bilateral pneumonia. --Sepsis, POA: due to PNA, manifested with tachycardia, tachypnea, elevated white count, lactic acidosis and fever. --Hepatic steatosis due to alcohol abuse. --Dysphagia due to encephalopathy, resolved. --Elevated lactic acid, likely due to dehydration and underlying infection. resolved. --Transaminitis secondary to alcohol use. --Alcohol dependence/alcohol use disorder, severe with withdrawal, status post [facility] protocol, Counseled for quitting and out patient rehab. --HTN, started on metoprolol Time spent for discharge: 34 minutes Core Measure Documentation - Palliative Care Palliative Care/ Comfort Measures: Not Applicable - Core Measures Any of the following diagnoses?: none Exam - Physical Exam Narrative exam: GENERAL: well-developed and well-nourished male lying on bed appeared in no apparent distress HEENT: Normocephalic. Atraumatic. No conjunctival congestion or icterus. Patient has moist mucous membranes. NECK: Supple. Trachea midline. CHEST/LUNGS: Clear to auscultated bilaterally, breathing nonlabored. No wheezes crackles or rhonchi. HEART/CARDIOVASCULAR: Regular in rate and rhythm. S1 and S2 positive. ABDOMEN: Abdomen is soft, nontender. Patient has normal bowel sounds. SKIN: There is no rash. Warm and dry. NEURO: No focal motor deficit. Follows commands MUSCULOSKELETAL: No joint effusion or tenderness. EXTRIMITY: No edema, no cyanosis or clubbing. PSYCH: Cooperative. - Constitutional Vitals: Temp Pulse Resp BP Pulse Ox 97.8 F 96 H 17 125/84 93 02/14/21 12:17 02/14/21 12:17 02/14/21 12:17 02/14/21 12:17 02/14/21 12:17 Plan Activity: advance as tolerated Weight Bearing Status: Weight Bear as Tolerated Diet: low fat Additional Instructions: f/u at out alcohol rehab center Assessment: Pt is A&Ox4, on RA, VSS; no distress noted. Follow up with: PETERSON VIRK MD [Primary Care Provider] - 7 Days Prescriptions: Folic Acid 1 mg PO DAILY #30 tablet Metoprolol [Lopressor TAB] 25 mg PO BID #60 tablet Thiamine [Vitamin B-1] 100 mg PO QDAY #30 tablet
--- NOTE | 2021-02-14 14:56 | Consultation ---
History of Present Illness - Reason for Consult Consult date: 02/14/21 Reason for consult: Delirium - Chief Complaint Chief complaint: Chest discomfort, abdominal distention and shortness of breath for 3 to 4 days - History of Present Psychiatric Illness Per Note: 35-year-old male with no significant past medical history comes in for chest tightness and shortness of breath and abdominal distention. Patient stat es is getting tired easily. Patient is being treated for peripheral neuropathy for bilateral foot pain. Patient is a regular smoker about half a pack a day. Patient had a low-grade fever of 100.2 and 70 during triage room. No exposure to coronavirus. The Patient is a 35 year old male with no prior psychiatric diagnosis who presents to the ED for chest tightness and shortness of breath and abdominal distention . During my interview with the patient, he reports that he started using alcohol at age 20. He reports consuming about a Fifth of liquor per day with longest sobriety period as 3 months. He reports last alcohol consumption as six days ago. The patient reports he has tried several self detoxification but always relapsed; he reports taking [place] worth to help with his withdrawal symptoms. Patient states he drinks because " everybody around me drinks, my father, and my grandmother." The Patient presents with no withdrawal symptoms. He denies suicidal ideation and denies hallucinations. PAST PSYCHIATRIC HISTORY Diagnoses: Denies Suicide attempts or Self-harm behavior: None reported Prior psychiatric hospitalizations: Denies Substance Abuse history: Alcohol Previous psychiatric medications tried: denies Outpatient treatment: denies PAST MEDICAL HISTORY: Unknown Family Psychiatric History: Father, Grandmother- Alcoholic SOCIAL HISTORY Marital Status: Single Living Arrangements: Lives with family Employment Status: employed Access to guns/weapons: None reported Education: some college History of Abuse: None reported Legal History: None reported REVIEW OF SYSTEMS Constitutional: Negative for weight loss ENT: Negative for stridor Respiratory: Negative for cough or hemoptysis All other systems reviewed and are negative MENTAL STATUS EXAMINATION General Appearance and Behavior: Age appropriate, good hygiene, wearing appropriate clothes, poor eye contact, irritable Cooperation: uncooperative, guarded Mood: Good Affect and affective range: congruent with mood Thought Process: Goal directed Thought Content: Not suicidal Speech: normal tone and pace Suicidal Ideation: Denies SI Homicidal Ideation: Denies Hallucinations: Denies Delusions: Denies Impulse Control: Impaired Insight and Judgment: Limited insight and judgment, Memory: Normal Attention: Normal Orientation: Alert, oriented Assessment Alcohol Use Disorder, Severe- F10.20 Follow-UP PSYCHOTHERAPY: Supportive psychotherapy provided MEDICAL: Per primary team DELIRIUM PRECAUTIONS: Please re-orient patient frequently, keep lights on during the day, and minimize benzodiazepines and opiates as these medications could worsen patient's confusion. CARD BOXER: Per medical team DISPOSITION:Do not recommend acute psychiatric inpatient treatment Will sign off. Patient to follow-up with psychiatric outpatient within 7- 14 days post discharge. Thank you for the consult. Please contact with any questions and/or concerns. Case staffed with Dr. Gay Medications and Allergies Allergies Allergy/AdvReac Type Severity Reaction Status Date / Time No Known Allergies Allergy Verified 01/11/19 13:36 Home Medications Medication Instructions Recorded Confirmed Last Taken Type Albuterol Mdi (or & Nicu Only) 2 puff IH QID PRN #1 inhalation 02/06/14 02/12/21 Unknown Rx [ProAir HFA Inhaler] Folic Acid 1 mg PO DAILY #30 tablet 02/14/21 Unknown Rx Metoprolol [Lopressor TAB] 25 mg PO BID #60 tablet 02/14/21 Unknown Rx Thiamine [Vitamin B-1] 100 mg PO QDAY #30 tablet 02/14/21 Unknown Rx Active Meds: Active Medications Acetaminophen (Acetaminophen 325 Mg Tab) 650 mg PO Q4H PRN PRN Reason: Pain MILD(1-3)/Fever >100.5/JOVEL Last Admin: 02/11/21 06:26 Dose: 650 mg Documented by: Albuterol (Albuterol 2.5 Mg/3 Ml Nebu) 2.5 mg IH Q4HRT PRN PRN Reason: Shortness Of Breath Lipase/Protease/Amylase (Lipase 10,500/Protease 25,000/Amylase 43,750 (Units) Dr Arroyo) 1 each FEEDTUBE PRN PRN PRN Reason: For Clogged Feeding Tube Chlordiazepoxide HCl (Chlordiazepoxide 25 Mg Cap) 50 mg PO Q1H PRN PRN Reason: CIWA-Ar 8-15 Chlordiazepoxide HCl (Chlordiazepoxide 25 Mg Cap) 100 mg PO Q1H PRN PRN Reason: CIWA-Ar 16-25 Famotidine (Famotidine 20 Mg Tab) 20 mg PO BID ARMIN Haloperidol Lactate (Haloperidol Lactate 5 Mg/1 Ml Inj) 5 mg IM Q6H PRN PRN Reason: Agitation Last Admin: 02/14/21 09:37 Dose: 5 mg Documented by: Heparin Sodium (Porcine) (Heparin 5,000 Unit/1 Ml Vial) 5,000 unit SUB-Q Q12HR [facility] Last Admin: 02/14/21 09:38 Dose: 5,000 unit Documented by: Potassium Chloride 20 meq/ (Lactated Ringer's) 1,010 mls @ 100 mls/hr IV DIRECT [facility] Last Admin: 02/12/21 06:49 Dose: 100 mls/hr Documented by: Lorazepam (Lorazepam 2 Mg/Ml Vial) 4 mg IV Q1H PRN PRN Reason: JEAN-CLAUDE-Ar 16- Last Admin: 02/10/21 23:13 Dose: 4 mg Documented by: Metoclopramide HCl (Metoclopramide 10 Mg/2 Ml Inj) 10 mg IV Q6H PRN PRN Reason: Nausea And Vomiting Metoprolol Tartrate (Metoprolol Tartrate 5 Mg/5 Ml Inj) 5 mg IV Q6HR [facility] Last Admin: 02/14/21 13:37 Dose: 5 mg Documented by: Morphine Sulfate (Morphine 2 Mg/1 Ml Inj) 2 mg IV Q4H PRN PRN Reason: Pain, Moderate (4-6) Last Admin: 02/14/21 00:17 Dose: 2 mg Documented by: Nicotine (Nicotine 21 Mg/24 Hr Patch) 21 mg TD Q24H [facility] Last Admin: 02/13/21 21:42 Dose: 21 mg Documented by: Ondansetron HCl (Ondansetron 4 Mg/2 Ml Inj) 4 mg IV Q8H PRN PRN Reason: Nausea And Vomiting Simple Syrup (Simple Syrup 15 Ml) 15 ml FEEDTUBE PRN PRN PRN Reason: Hypoglycemia Simple Syrup (Simple Syrup 15 Ml) 30 ml FEEDTUBE PRN PRN PRN Reason: Hypoglycemia Sodium Bicarbonate (Sodium Bicarbonate 325 Mg Tab) 325 mg FEEDTUBE PRN PRN PRN Reason: For Clogged Feeding Tube Sodium Chloride (Sodium Chloride 0.9% 10 Ml Flush Syringe) 10 ml IV BID [facility] Last Admin: 02/14/21 09:38 Dose: 10 ml Documented by: Sodium Chloride (Sodium Chloride 0.9% 10 Ml Flush Syringe) 10 ml IV PRN PRN PRN Reason: LINE FLUSH Last Admin: 02/11/21 01:59 Dose: 10 ml Documented by: Mental Status Exam - Vital signs Last Vital Signs Temp 97.8 F 02/14/21 12:17 Pulse 96 H 02/14/21 12:17 Resp 17 02/14/21 12:17 BP 125/84 02/14/21 12:17 Pulse Ox 93 02/14/21 12:17 Results Result Diagrams: 02/08/21 05:07 02/12/21 04:24 Abnormal lab results 02/13/21 02/13/21 02/14/21 Range/Units 17:01 23:15 04:49 POC Glucose 125 H 119 H 124 H (70-105) mg/dL 02/14/21 Range/Units 08:14 POC Glucose 111 H (70-105) mg/dL All other labs normal.
[2021-02-14] MEDS ORDERED: FAMOTIDINE 20 MG TAB PO SCH (22:00)
== END 2021-02-14 15:15 | disposition home or self-care (01) | DRG 871 ==
LOC: ED 15:11 → CC1 18:50 → 4A 20:34
PROVIDERS: ADMIT Internal Medicine; ATTEND Internal Medicine
DX: A41.9 Sepsis, unspecified organism (principal); J18.9 Pneumonia, unspecified organism; E51.2 Wernicke's encephalopathy; F10.231 Alcohol dependence with withdrawal delirium; E87.2 Acidosis; K76.0 Fatty (change of) liver, not elsewhere classified; R74.01 Elevation of levels of liver transaminase levels; R13.10 Dysphagia, unspecified; Z20.822 Contact with and (suspected) exposure to COVID-19; G31.2 Degeneration of nervous system due to alcohol; E87.6 Hypokalemia; F17.200 Nicotine dependence, unspecified, uncomplicated; Z79.899 Other long term (current) drug therapy
CPT/HCPCS: 36415; 70450; 71046; 74018; 74177; 80048; 80053; 80074; 80307; 80320; 81001; 82140; 82607; 82747; 82805; 82962; 83036; 83735; 83880; 84132; 84145; 84484; 85025; 85027; 85379; 85610; 86592; 87040; 87086; 93005; 94640; 96365; 96366; 96367; 96375; G0378; G0480; J0456; J0696; J1630; J1644; J2060; J2270; J3411; J3480; J3486; J7030; J7120; Q9967; U0003

== ENCOUNTER 2021-11-05 09:06 | Emergency (ER) | payer SELFPAY ==
[2021-11-05 09:27] VITALS: BP 125/64
--- NOTE | 2021-11-05 09:39 | Event Note ---
ED Screening Note ED Screening Note: tearful "demons trying to take my soul" no hi no si wants help from this "[facility]" rx none thc only no cig no etohx 1 year no previous MH treatment pmh denies psh denies This initial assessment/diagnostic orders/clinical plan/treatment(s) is/are subject to change based on patients health status, clinical progression and re- assessment by fellow clinical providers in the ED. Further treatment and workup at subsequent clinical providers discretion. Patient/guardian urged not to elope from the ED as their condition may be serious if not clinically assessed and managed. Initial orders include: [facility]
[2021-11-05] MEDS ORDERED: chlordiazePOXIDE 25 MG CAP PO PRN (09:52)
--- NOTE | 2021-11-05 10:01 | Emergency Department Report ---
ED Psych HPI - General Chief Complaint: Psych Stated Complaint: ANXIETY/DEPRESSION Time Seen by Provider: 11/05/21 09:36 Source: patient Mode of arrival: Ambulatory - History of Present Illness Initial Comments: Chief complaint: "I am seeing deo." HPI: This 36-year-old male history of alcohol dependence who presents with visual auditory hallucinations. He has had anxiety and depression since his last drink of alcohol 1 year ago. He has severe guilt from hurting people while using alcohol. He has been researching alternative religions. He has seen deo. He has had severe anxiety and depression over the past 2 weeks. He has used marijuana to help his mood. He denies suicidal homicidal ideation MD Complaint: feels depressed -: Gradual, week(s) (Worse over the last several weeks) Associated Psychiatric Symptoms: depression, auditory hallucinations, visual hallucinations History of same: No Quality: constant Improves With: none Worsens With: none Context: recent drug abuse (Marijuana use), not taking psychiatric Associated Symptoms: denies other symptoms Treatments Prior to Arrival: none - Related Data Previous Rx's Medication Instructions Recorded Last Taken Type busPIRone [Buspar] 10 mg PO BID #60 tab 11/05/21 Unknown Rx hydrOXYzine PAMOATE [Vistaril] 25 mg PO BID PRN #60 capsule 11/05/21 Unknown Rx Allergies Allergy/AdvReac Type Severity Reaction Status Date / Time No Known Allergies Allergy Verified 01/11/19 13:36 ED Review of Systems ROS: Stated complaint: ANXIETY/DEPRESSION Other details as noted in HPI Comment: All other systems reviewed and negative Constitutional: denies: chills, fever, malaise Respiratory: denies: cough, shortness of breath Cardiovascular: denies: chest pain Gastrointestinal: denies: abdominal pain Musculoskeletal: denies: back pain Psychiatric: anxiety, depression, auditory hallucinations, visual hallucinations. denies: homicidal thoughts, suicidal thoughts ED Past Medical Hx - Past Medical History Previous Medical History?: Yes Additional medical history: Alcohol dependence - Surgical History Past Surgical History?: No - Family History Family history: other (Alcohol dependence) - Social History Smoking Status: Current Every Day Smoker Substance Use Type: Alcohol, Marijuana - Medications Home Medications: Home Medications Medication Instructions Recorded Confirmed Last Taken Type busPIRone [Buspar] 10 mg PO BID #60 tab 11/05/21 Unknown Rx hydrOXYzine PAMOATE [Vistaril] 25 mg PO BID PRN #60 capsule 11/05/21 Unknown Rx ED Physical Exam - General Limitations: No Limitations General appearance: alert, in no apparent distress, other (Tearful, obviously upset, cooperative, looks much older than stated age) - Head Head exam: Present: atraumatic, normocephalic - Eye Eye exam: Present: normal appearance - ENT ENT exam: Present: mucous membranes moist - Neck Neck exam: Present: normal inspection, full ROM - Respiratory Respiratory exam: Present: normal lung sounds bilaterally. Absent: respiratory distress, wheezes, rales, rhonchi - Cardiovascular Cardiovascular Exam: Present: regular rate, normal rhythm, normal heart sounds. Absent: systolic murmur, diastolic murmur, rubs, gallop - GI/Abdominal GI/Abdominal exam: Present: soft, normal bowel sounds. Absent: distended, tenderness, guarding, rebound - Rectal Rectal exam: Present: deferred - Extremities Exam Extremities exam: Present: normal inspection - Back Exam Back exam: Present: normal inspection - Neurological Exam Neurological exam: Present: alert, oriented X3 - Psychiatric Psychiatric exam: Present: normal affect, depressed - Skin Skin exam: Present: warm, dry, intact, normal color. Absent: rash ED Course Vital Signs 11/05/21 09:22 Temperature 98.6 F Pulse Rate 80 Respiratory 18 Rate Blood Pressure 125/64 [Right] ED Medical Decision Making - Lab Data Result diagrams: 11/05/21 10:25 11/05/21 10:25 - Medical Decision Making Mr. Chiu is a 36-year-old male with history of Bacot dependence who presents with anxiety depression hallucinations. [facility] protocol in place. Patient states that he has not drink alcohol in 1 years time. He was admitted January at this hospital for delirium tremens. He has medically clear for psychiatric care I highly appreciate the assistance of our psychiatric team. Patient was prescribed Vistaril and BuSpar by our mental health team. He was given outpatient resources. Critical care attestation.: If time is entered above; I have spent that time in minutes in the direct care of this critically ill patient, excluding procedure time. ED Disposition Clinical Impression: Generalized anxiety disorder, Substance-induced psychotic disorder Disposition: HOME / SELF CARE / HOMELESS Is pt being admited?: No Does the pt Need Aspirin: No Condition: Stable Additional Instructions: Professional and Agency Contacts To help Resolve Crises(01/03) [place] Crisis Line: Suicide Prevention Line: Crisis Text Line: Text START to 000120 Emergency: 911 Outpatient [facility] Behavior[facility] Health Resources: ASHWIN: [facility] [address] [place], [place] [address] BELINDA: [facility] - [facility] [address] [place] [address] AMI: [facility] - [address] [place] [address] Wednesday thru Wednesday - 8am - 5pm [facility] Address: [address] [place] [address] LUIS: [facility] Address: [address] [place] [address] Wednesday thru Wednesday- 7am-2pm [facility] Address: [address] [place] [address] Wednesday thru Wednesday: 8:30AM-5PM Prescriptions: busPIRone [Buspar] 10 mg PO BID #60 tab hydrOXYzine PAMOATE [Vistaril] 25 mg PO BID PRN #60 capsule PRN Reason: Anxiety Referrals: GENE KWOK MD [Primary Care Provider] - 3-5 Days
[2021-11-05 11:00] LABS: Basophils % (Auto) 0.4 % (0.0-1.8); Eosinophils % (Auto) 0.4 % (0.0-4.3); Hematocrit 43.3 % (35.5-45.6); Hemoglobin 14.4 gm/dl (11.8-15.2); Lymphocytes # (Auto) 2.1 K/mm3 (1.2-5.4); Lymphocytes % (Auto) 20.4 % (13.4-35.0); Mean Corpuscular HGB Conc 33 % (32-34); Mean Corpuscular Volume 90 fl (84-94); Monocytes # (Auto) 0.5 K/mm3 (0.0-0.8); Monocytes % (Auto) 4.8 % (0.0-7.3); Platelet Count 154 K/mm3 (140-440); Red Blood Count 4.81 M/mm3 (3.65-5.03); Red Cell Distribution Width 13.9 % (13.2-15.2)
[2021-11-05 11:23] LABS: Alanine Aminotransferase 20 units/L (7-56); Blood Urea Nitrogen 13 mg/dL (9-20); Calcium 10.4 mg/dL (8.4-10.2); Hemolysis Index 5
[2021-11-05 11:26] LABS: BUN/Creatinine Ratio 19
--- NOTE | 2021-11-05 12:24 | Consultation ---
History of Present Illness - Reason for Consult Consult date: 11/05/21 Reason for consult: hallucinations - History of Present Psychiatric Illness The patient was seen today. He presents to the ER for depression and auditory hallucinations. During the evaluation, the patient is calm, cooperative and pleasant. He appears in a good mood. He is smiling and conversational. The patient says he had been up for about a week, and only sleeping about three hours when he did sleep. She says he is dealing with a lot of stress because his dad is dying and his little brother is not handling it well. The patient says he was studying some ancient Bible about methodist. He says he was having a lot of difficulty focusing, so he took "some of his two son's focus medication." He says "I can't think of the name of the med they take but it's begins with Meth." I'm guessing the patient is speaking of Methylphenidate. He says after that he "started feeling weird, anxiety knocked me to the floor and I started visualizing demons in my head." The patient says "right now I feel fine. I'm not feeling like that anymore and I know I want take their medication again." He then laughs. The patient says he does have a problem with bad anxiety. He says it gets the best of him most days. He is asking for something to help him stay calm. The patient denies SI/HI or hallucinations of any kind. He rosas any illicit drug use, alcohol. He says "I quiet drinking about a year ago." He also denies any psych history or being on any psych meds. PAST PSYCHIATRIC HISTORY Diagnoses: Denies Suicide attempts or Self-harm behavior: Denies Prior psychiatric hospitalizations: Denies Substance Abuse history: Denies Previous psychiatric medications tried: Denies Outpatient treatment: Denies PAST MEDICAL HISTORY: None reported Family Psychiatric History: None reported or documented SOCIAL HISTORY Living arrangement: states she lives with mom Marital status: Single Employed REVIEW OF SYSTEMS Constitutional: Negative for weight loss ENT: Negative for stridor Respiratory: Negative for cough or hemoptysis All other systems reviewed and are negative MENTAL STATUS EXAMINATION General Appearance and Behavior: Age appropriate, good hygiene, wearing appropriate clothes, good eye contact, calm, cooperative Cooperation: Participating/engaged, but Guarded Psychomotor Behavior: Psychomotor normal Mood: Good Affect and affective range: congruent with stated mood Thought Process: goal directed Thought Content: None Speech: normal tone and pace Suicidal Ideation: Denies Homicidal Ideation: Denies Hallucinations: Denies Delusions: None elicited Impulse Control: Good Insight and Judgment: Good insight and judgment Memory: Good Attention: Attentive Orientation: Alert, oriented Assessment and Plan Generalized Anxiety Disorder Substance Induced Psychosis Treatment Plan Vistaril 25mg po BID prn anxiety Buspar 10mg po BID Medical: per primary Disposition: Do not recommend acute psychiatric inpatient treatment The hearing care professional to give outpatient resources Will sing off. Thanks. Case staffed with Dr. Gay Medications and Allergies Allergies Allergy/AdvReac Type Severity Reaction Status Date / Time No Known Allergies Allergy Verified 01/11/19 13:36 Home Medications Medication Instructions Recorded Confirmed Last Taken Type busPIRone [Buspar] 10 mg PO BID #60 tab 11/05/21 Unknown Rx hydrOXYzine PAMOATE [Vistaril] 25 mg PO BID PRN #60 capsule 11/05/21 Unknown Rx Active Meds: Active Medications Chlordiazepoxide HCl (Chlordiazepoxide 25 Mg Cap) 50 mg PO Q1H PRN PRN Reason: CIWA-Nc 8-15 Mental Status Exam - Vital signs Last Vital Signs Temp 98.6 F 11/05/21 09:22 Pulse 80 11/05/21 09:22 Resp 18 11/05/21 09:22 BP 125/64 11/05/21 09:22 Pulse Ox Results Result Diagrams: 11/05/21 10:25 11/05/21 10:25 Abnormal lab results 11/05/21 11/05/21 11/05/21 Range/Units 10:25 10:25 10:25 Seg Neutrophils % 74.0 H (40.0-70.0) % Potassium 3.1 L (3.6-5.0) mmol/L Creatinine 0.7 L (0.8-1.3) mg/dL Glucose 128 H (75-100) mg/dL Calcium 10.4 H (8.4-10.2) mg/dL Alkaline Phosphatase 202 H (35-129) units/L Salicylates < 0.3 L (2.8-20.0) mg/dL Acetaminophen (10.0-30.0) ug/mL 11/05/21 Range/Units 10:25 Seg Neutrophils % (40.0-70.0) % Potassium (3.6-5.0) mmol/L Creatinine (0.8-1.3) mg/dL Glucose (75-100) mg/dL Calcium (8.4-10.2) mg/dL Alkaline Phosphatase (35-129) units/L Salicylates (2.8-20.0) mg/dL Acetaminophen 5.0 L (10.0-30.0) ug/mL All other labs normal.
== END 2021-11-05 14:17 | disposition home or self-care (01) ==
LOC: ED 09:06
DX: F41.1 Generalized anxiety disorder (principal); F19.251 Other psychoactive substance dependence with psychoactive substance-induced psychotic disorder with hallucinations; F17.200 Nicotine dependence, unspecified, uncomplicated; F10.20 Alcohol dependence, uncomplicated; F12.90 Cannabis use, unspecified, uncomplicated
CPT/HCPCS: 36415; 80053; 80320; 84443; 85025; 99283; G0480

== ENCOUNTER 2022-02-04 16:57 | Emergency (ER) | payer OTHER ==
[2022-02-04 17:09] VITALS: BP 108/72
== END 2022-02-05 05:55 | disposition left against medical advice (07) ==
LOC: ED 16:57
DX: R51.9 Headache, unspecified (principal); Z53.21 Procedure and treatment not carried out due to patient leaving prior to being seen by health care provider

== ENCOUNTER 2022-04-30 10:42 | Emergency (ER) | payer OTHER ==
[2022-04-30 10:51] VITALS: BP 108/64
--- NOTE | 2022-04-30 12:16 | Emergency Department Report ---
ED ENT HPI - General Chief complaint: Dental/Oral Stated complaint: TOOTH PAIN Time Seen by Provider: 04/30/22 11:29 Source: patient Mode of arrival: Ambulatory Limitations: No Limitations - History of Present Illness Initial comments: Patient presents with right lower dental pain x2 days. Describes pain as sharp, throbbing, worse with chewing. Symptoms associated with headache, right ear pain, facial pain, he denies fever, no vision changes, no focal weakness, no nausea vomiting abdominal pain, no fever, no cough cold congestion. Reports he has been using ibuprofen and Advil without improvement. Patient has not seen a dentist. MD complaint: tooth pain - Related Data Previous Rx's Medication Instructions Recorded Last Taken Type busPIRone [Buspar] 10 mg PO BID #60 tab 11/05/21 Unknown Rx hydrOXYzine PAMOATE [Vistaril] 25 mg PO BID PRN #60 capsule 11/05/21 Unknown Rx Ibuprofen [Motrin 800 MG tab] 800 mg PO Q8HR PRN #20 tablet 04/30/22 Unknown Rx Penicillin Vk [Veetids TAB] 250 mg PO QID 7 Days 04/30/22 Unknown Rx traMADoL [Ultram 50 MG tab] 50 mg PO Q4HR PRN #10 tablet 04/30/22 Unknown Rx Allergies Allergy/AdvReac Type Severity Reaction Status Date / Time No Known Allergies Allergy Verified 02/04/22 17:10 ED Dental HPI - General Chief complaint: Dental/Oral Stated complaint: TOOTH PAIN Time Seen by Provider: 04/30/22 11:29 Source: patient Mode of arrival: Ambulatory Limitations: No Limitations - Related Data Previous Rx's Medication Instructions Recorded Last Taken Type busPIRone [Buspar] 10 mg PO BID #60 tab 11/05/21 Unknown Rx hydrOXYzine PAMOATE [Vistaril] 25 mg PO BID PRN #60 capsule 11/05/21 Unknown Rx Ibuprofen [Motrin 800 MG tab] 800 mg PO Q8HR PRN #20 tablet 04/30/22 Unknown Rx Penicillin Vk [Veetids TAB] 250 mg PO QID 7 Days 04/30/22 Unknown Rx traMADoL [Ultram 50 MG tab] 50 mg PO Q4HR PRN #10 tablet 04/30/22 Unknown Rx Allergies Allergy/AdvReac Type Severity Reaction Status Date / Time No Known Allergies Allergy Verified 02/04/22 17:10 ED Review of Systems ROS: Stated complaint: TOOTH PAIN Other details as noted in HPI Constitutional: chills Eyes: denies: eye pain ENT: ear pain Respiratory: denies: cough, shortness of breath Cardiovascular: denies: chest pain Endocrine: denies: intolerance to cold, intolerance to heat Gastrointestinal: denies: abdominal pain, nausea, diarrhea Genitourinary: denies: urgency, frequency Musculoskeletal: denies: back pain Skin: denies: rash Neurological: denies: headache Psychiatric: denies: anxiety ED Past Medical Hx - Past Medical History Additional medical history: Alcohol dependence - Social History Smoking Status: Current Every Day Smoker Substance Use Type: Alcohol, Marijuana - Medications Home Medications: Home Medications Medication Instructions Recorded Confirmed Last Taken Type busPIRone [Buspar] 10 mg PO BID #60 tab 11/05/21 Unknown Rx hydrOXYzine PAMOATE [Vistaril] 25 mg PO BID PRN #60 capsule 11/05/21 Unknown Rx Ibuprofen [Motrin 800 MG tab] 800 mg PO Q8HR PRN #20 tablet 04/30/22 Unknown Rx Penicillin Vk [Veetids TAB] 250 mg PO QID 7 Days 04/30/22 Unknown Rx traMADoL [Ultram 50 MG tab] 50 mg PO Q4HR PRN #10 tablet 04/30/22 Unknown Rx ED Physical Exam - General Limitations: No Limitations General appearance: alert, in no apparent distress - Head Head exam: Present: atraumatic - Eye Eye exam: Present: normal appearance - ENT ENT exam: Present: normal exam, TM's normal bilaterally - Expanded ENT Exam Expanded Ear exam: Present: normal external inspection Teeth exam: Present: dental caries, fractured tooth #, dental tenderness #, other (There is dental impaction open tooth #32. Tender on palpation, no fluctuance, no cervical lymphadenopathy, no drooling, no trismus, no difficulty swallowing) 1 - Fractured, Other - Neck Neck exam: Present: normal inspection. Absent: tenderness, lymphadenopathy - Respiratory Respiratory exam: Present: normal lung sounds bilaterally. Absent: respiratory distress - Cardiovascular Cardiovascular Exam: Present: regular rate, normal rhythm - GI/Abdominal GI/Abdominal exam: Present: soft. Absent: distended - Extremities Exam Extremities exam: Present: normal inspection, full ROM - Back Exam Back exam: Present: normal inspection, full ROM - Neurological Exam Neurological exam: Present: alert, oriented X3, CN II-XII intact, normal gait. Absent: motor sensory deficit - Psychiatric Psychiatric exam: Present: normal affect, normal mood - Skin Skin exam: Present: warm, dry, normal color ED Course Vital Signs 04/30/22 10:44 Temperature 99.2 F Pulse Rate 100 H Respiratory 18 Rate Blood Pressure 108/64 [Right] O2 Sat by Pulse 96 Oximetry ED Medical Decision Making - Medical Decision Making Patient presents with right lower dental pain x2 days. Describes pain as sharp, throbbing, worse with chewing. Symptoms associated with headache, right ear pain, facial pain, he denies fever, no vision changes, no focal weakness, no nausea vomiting abdominal pain, no fever, no cough cold congestion. Reports he has been using ibuprofen and Advil without improvement. Patient has not seen a dentist. Vital signs are stable nontoxic-appearing he is afebrile, tolerating his secretions, pain addressed in the emergency department, discharged home with pain management, antibiotics, and dental referral. Patient remained stable nontoxic-appearing, afebrile, ambulating steadily without assistance. Gone over ED findings with patient as well as plan for follow-up. Also discussed return precautions with patient, all questions and concerns addressed. Patient is stable to be discharged follow-up outpatient. Audio voice dictation device used, hence the chart might contain some dictation errors, mispronunciations, wrong spelling and wrong verbiage. Critical care attestation.: If time is entered above; I have spent that time in minutes in the direct care of this critically ill patient, excluding procedure time. ED Disposition Clinical Impression: Pain, dental, Dental infection Disposition: HOME / SELF CARE / HOMELESS Is pt being admited?: No Does the pt Need Aspirin: No Condition: Stable Instructions: Dental Abscess Prescriptions: Ibuprofen [Motrin 800 MG tab] 800 mg PO Q8HR PRN #20 tablet PRN Reason: Pain , Severe (7-10) traMADoL [Ultram 50 MG tab] 50 mg PO Q4HR PRN #10 tablet PRN Reason: Pain Penicillin Vk [Veetids TAB] 250 mg PO QID 7 Days Referrals: [facility] [Provider Group] - 3-5 Days Forms: Work/School Release Form(ED)
== END 2022-04-30 12:29 | disposition home or self-care (01) ==
LOC: ED 10:42
DX: K08.89 Other specified disorders of teeth and supporting structures (principal); K04.7 Periapical abscess without sinus; F17.200 Nicotine dependence, unspecified, uncomplicated; F10.20 Alcohol dependence, uncomplicated; F12.90 Cannabis use, unspecified, uncomplicated
CPT/HCPCS: 99282

== ENCOUNTER 2022-05-01 18:15 | Inpatient (IN) | payer OTHER ==
[2022-05-01 20:21] LABS: Basophils % (Auto) 0.5 % (0.0-1.8); Eosinophils % (Auto) 0.8 % (0.0-4.3); Hematocrit 39.1 % (35.5-45.6); Hemoglobin 13.4 gm/dl (11.8-15.2); Lymphocytes # (Auto) 2.2 K/mm3 (1.2-5.4); Lymphocytes % (Auto) 36.1 % (13.4-35.0); Mean Corpuscular HGB Conc 34 % (32-34); Mean Corpuscular Volume 88 fl (84-94); Monocytes # (Auto) 0.6 K/mm3 (0.0-0.8); Monocytes % (Auto) 9.7 % (0.0-7.3); Platelet Count 134 K/mm3 (140-440); Red Blood Count 4.45 M/mm3 (3.65-5.03); Red Cell Distribution Width 14.7 % (13.2-15.2)
[2022-05-01 20:27] LABS: Alanine Aminotransferase 34 units/L (7-56); Albumin 4.8 g/dL (3.9-5); BUN/Creatinine Ratio 7; Blood Urea Nitrogen 6 mg/dL (9-20); Calcium 9.8 mg/dL (8.4-10.2); Hemolysis Index 4
--- NOTE | 2022-05-01 20:48 | Emergency Department Report ---
History of Present Illness - General Chief Complaint: Overdose Stated Complaint: OVERDOSE/NAUSEA/VOMITING Time Seen by Provider: 05/01/22 20:41 Source: patient Mode of arrival: Ambulatory Limitations: No Limitations - History of Present Illness Initial Comments: Patient is a 37-year-old male who presents emergency room with complaints of epigastric pain and vomiting coffee-ground emesis. Patient states he vomited this morning at 9 AM. Patient states yesterday he took 12 500 mg Tylenol and 6 220 naproxen and 6 800 mg ibuprofen in order to try to alleviate his tooth pain. Patient states he saw a dentist and was given antibiotics for the tooth infe ction but did not get any pain medication. Patient denies alcohol use. Patient states he quit drinking a year ago. Patient states he took all his medication in hopes of alleviating his pain. Patient denies suicidal and homicidal ideation. Patient denies depression. Patient states he had no intention of harming himself just wanted to alleviate the pain. Patient states after taking all his medication he woke up this morning with an upset stomach and epigastric pain and vomited what appeared to be dark blood. Patient states that his abdominal pain has resolved. Patient states he has not vomited again. Patient denies vomiting at this time. Patient denies chest pain. Patient states his tooth pain has gotten better. Patient denies fever or chills. Patient denies diarrhea. Patient denies recent travel. Patient denies recent international travel. Patient denies exposure to the novel coronavirus. Patient denies sick contacts. Patient denies fever and chills. Patient denies cough. Patient denies diarrhea. Patient denies coming in contact with anybody with symptoms of the novel coronavirus. Complaint: accidental overdose -: Gradual Context: Accidental Overdose: medication error Treatments Prior to Arrival: none - Related Data Previous Rx's Medication Instructions Recorded Last Taken Type busPIRone [Buspar] 10 mg PO BID #60 tab 11/05/21 Unknown Rx hydrOXYzine PAMOATE [Vistaril] 25 mg PO BID PRN #60 capsule 11/05/21 Unknown Rx Ibuprofen [Motrin 800 MG tab] 800 mg PO Q8HR PRN #20 tablet 04/30/22 Unknown Rx Penicillin Vk [Veetids TAB] 250 mg PO QID 7 Days 04/30/22 Unknown Rx traMADoL [Ultram 50 MG tab] 50 mg PO Q4HR PRN #10 tablet 04/30/22 Unknown Rx Allergies Allergy/AdvReac Type Severity Reaction Status Date / Time No Known Allergies Allergy Verified 05/01/22 18:39 ED Review of Systems ROS: Stated complaint: OVERDOSE/NAUSEA/VOMITING Other details as noted in HPI Constitutional: denies: chills, fever Eyes: denies: eye pain, eye discharge, vision change ENT: denies: ear pain, throat pain Respiratory: denies: cough, shortness of breath, wheezing Cardiovascular: denies: chest pain, palpitations Endocrine: no symptoms reported Gastrointestinal: abdominal pain, nausea, vomiting, hematemesis. denies: diarrhea Genitourinary: denies: urgency, dysuria Musculoskeletal: denies: back pain, joint swelling, arthralgia Skin: denies: rash, lesions Neurological: denies: headache, weakness, paresthesias Psychiatric: denies: anxiety, depression Hematological/Lymphatic: denies: easy bleeding, easy bruising ED Past Medical Hx - Past Medical History Previous Medical History?: No Additional medical history: Alcohol dependence - Surgical History Past Surgical History?: No - Family History Family history: no significant - Social History Smoking Status: Current Every Day Smoker Substance Use Type: None, Marijuana - Medications Home Medications: Home Medications Medication Instructions Recorded Confirmed Last Taken Type busPIRone [Buspar] 10 mg PO BID #60 tab 11/05/21 Unknown Rx hydrOXYzine PAMOATE [Vistaril] 25 mg PO BID PRN #60 capsule 11/05/21 Unknown Rx Ibuprofen [Motrin 800 MG tab] 800 mg PO Q8HR PRN #20 tablet 04/30/22 Unknown Rx Penicillin Vk [Veetids TAB] 250 mg PO QID 7 Days 04/30/22 Unknown Rx traMADoL [Ultram 50 MG tab] 50 mg PO Q4HR PRN #10 tablet 04/30/22 Unknown Rx ED Physical Exam - General Limitations: No Limitations General appearance: alert, in no apparent distress - Head Head exam: Present: atraumatic, normocephalic - Eye Eye exam: Present: normal appearance - ENT ENT exam: Present: mucous membranes moist - Neck Neck exam: Present: normal inspection - Respiratory Respiratory exam: Present: normal lung sounds bilaterally. Absent: respiratory distress - Cardiovascular Cardiovascular Exam: Present: regular rate, normal rhythm. Absent: systolic murmur, diastolic murmur, rubs, gallop - GI/Abdominal GI/Abdominal exam: Present: soft, normal bowel sounds. Absent: distended, tenderness, guarding - Rectal Rectal exam: Present: deferred - Extremities Exam Extremities exam: Present: normal inspection - Back Exam Back exam: Present: normal inspection - Neurological Exam Neurological exam: Present: alert, oriented X3 - Psychiatric Psychiatric exam: Present: normal affect, normal mood - Skin Skin exam: Present: warm, dry, intact, normal color. Absent: rash ED Course Vital Signs 05/01/22 05/01/22 18:29 20:30 Temperature 99.8 F H Pulse Rate 99 H Respiratory 18 Rate Blood Pressure 120/72 O2 Sat by Pulse 97 100 Oximetry - Reevaluation(s) Reevaluation #1: The triage nurse contacted poison control and recommendations were received. 05/01/22 20:51 Reevaluation #2: I discussed all results with patient. I discussed plan of care with patient. Patient agrees with plan of care and admission. Patient to be admitted to the ospitalist service. 05/01/22 22:37 - Consultations Consultation #1: BRIANSULAIMAN ROSS Male : 1985 MedRec# [id number] 05/01/22 19:11 - Nurse Note by ALAN CARBALLO [facility] Num: [id number] : 1985 Patient Age: 37 poison control called and recommended tylenol, salicilate, cmp, uds, ekg, call back with results. supportive care Initialized on 05/01/22 19:11 - END OF NOTE Consultation #2: I discussed case with Dr. Musa HEREDIA. Dr. johnson recommends admission for observation and twice daily Protonix. 05/01/22 22:37 Consultation #3: Hospitalist consulted for admission. Hospitalist to admit patient. 05/01/22 22:37 ED Medical Decision Making - Lab Data Result diagrams: 05/01/22 19:48 05/01/22 19:48 - Medical Decision Making Patient is a 37-year-old male who presents emergency room with an accidental overdose of Tylenol, naproxen and ibuprofen with complaints of abdominal pain and coffee-ground emesis. Patient ingested 12 tablets of 500 mg Tylenol, 6 tablets of 220 mg naproxen and 6 tablets of 800 mg ibuprofen 24 hours ago. Patient woke up this morning with epigastric pain and vomiting coffee-ground emesis. Poison control was contacted and recommendations were received for supportive care. Patient had labs done which were essentially unremarkable. I discussed the case with GI and GI recommends admission for observation and Protonix. Patient admitted to the hospital service for further evaluation treatment. Critical care time documented due to the multiple reassessments, prolonged time at the bedside, interpretation of diagnostics and labs and discussion with consultants.. - Differential Diagnosis od, NSAID toxicity, coffee-ground emesis, abdominal pain, Critical Care Time: Yes Critical care time in (mins) excluding proc time.: 35 Critical care attestation.: If time is entered above; I have spent that time in minutes in the direct care of this critically ill patient, excluding procedure time. Critical Care Time: 35 minutes ED Disposition Clinical Impression: Coffee ground emesis, Epigastric pain Nausea & vomiting Qualifiers: Vomiting type: unspecified Qualified Code(s): R11.2 - Nausea with vomiting, unspecified Accidental ibuprofen overdose Qualifiers: Encounter type: initial encounter Qualified Code(s): T39.311A - Poisoning by propionic acid derivatives, accidental (unintentional), initial encounter Unintentional Tylenol overdose Qualifiers: Encounter type: initial encounter Qualified Code(s): T39.1X1A - Poisoning by 4- Aminophenol derivatives, accidental (unintentional), initial encounter Disposition: ADMITTED INPATIENT Is pt being admited?: Yes Does the pt Need Aspirin: No Condition: Critical Time of Disposition: 22:38
[2022-05-01] MEDS ORDERED: MORPHINE 4 MG/1 ML INJ IV PRN (22:52)
[2022-05-01] MEDS ORDERED: ACETAMINOPHEN 325 MG TAB PO PRN (22:52)
[2022-05-01] MEDS ORDERED: ALBUTEROL 2.5 MG/3 ML NEBU IH PRN (22:52)
[2022-05-01] MEDS ORDERED: ONDANSETRON 4 MG/2 ML INJ IV PRN (22:52)
--- NOTE | 2022-05-01 23:00 | History and Physical Report ---
History of Present Illness Date of examination: 05/01/22 Date of admission: 05/01/22 Chief complaint: Tylenol overdose Ibuprofen overdose Nausea vomiting GI bleeding History of present illness: 37-year-old male with history of tobacco abuse was brought to the emergency room because of epigastric pain and vomiting coffee-ground emesis. Patient states he vomited this morning at 9 AM. Patient states yesterday he took 12 500 mg Tylenol and 6 220 naproxen and 6 800 mg ibuprofen in order to try to alleviate his tooth pain. Patient states he saw a dentist and was given antibiotics for the tooth infection but did not get any pain medication. Patient denies alcohol use. Patient states he quit drinking a year ago. Patient states he took all his medication in hopes of alleviating his pain. Patient denies suicidal and homicidal ideation. Patient denies depression. Patient states he had no intention of harming himself just wanted to alleviate the pain. Patient states after taking all his medication he woke up this morning with an upset stomach and epigastric pain and vomited what appeared to be dark blood. Patient states that his abdominal pain has resolved. Patient states he has not vomited again. Patient denies vomiting at this time. Patient denies chest pain. Patient states his tooth pain has gotten better. Patient denies fever or chills. Patient denies diarrhea. In the emergency room patient hemoglobin is 13.4 and hematocrit 39.1, ac etaminophen level is 5.2 and salicylate level is 0.3. Subsequently Case was discussed with poison control and on-call GI's were going to admit the patient we will put the patient on Protonix IV fluid GI will see the patient in the morning in consultation Past History Past Surgical History: No surgical history Social history: smoking, alcohol abuse Family history: no significant family history Medications and Allergies Allergies Allergy/AdvReac Type Severity Reaction Status Date / Time No Known Allergies Allergy Verified 05/01/22 18:39 Home Medications Medication Instructions Recorded Confirmed Last Taken Type busPIRone [Buspar] 10 mg PO BID #60 tab 11/05/21 Unknown Rx hydrOXYzine PAMOATE [Vistaril] 25 mg PO BID PRN #60 capsule 11/05/21 Unknown Rx Ibuprofen [Motrin 800 MG tab] 800 mg PO Q8HR PRN #20 tablet 04/30/22 Unknown Rx Penicillin Vk [Veetids TAB] 250 mg PO QID 7 Days 04/30/22 Unknown Rx traMADoL [Ultram 50 MG tab] 50 mg PO Q4HR PRN #10 tablet 04/30/22 Unknown Rx Review of Systems All systems: negative Gastrointestinal: abdominal pain, nausea, vomiting, coffee ground emesis Exam - Constitutional Vitals: Temp Pulse Resp BP Pulse Ox 99.8 F H 99 H 18 120/72 100 05/01/22 18:29 05/01/22 18:29 05/01/22 18:29 05/01/22 18:29 05/01/22 20:30 General appearance: Present: no acute distress, well-nourished - EENT Eyes: Present: PERRL ENT: hearing intact, clear oral mucosa - Neck Neck: Present: supple, normal ROM - Respiratory Respiratory effort: normal Respiratory: bilateral: CTA - Cardiovascular Heart Sounds: Present: S1 & S2. Absent: rub, click - Extremities Extremities: pulses symmetrical, No edema Peripheral Pulses: within normal limits - Abdominal General gastrointestinal: Present: soft, non-tender, non-distended, normal bowel sounds Male genitourinary: Present: normal - Integumentary Integumentary: Present: clear, warm, dry - Musculoskeletal Musculoskeletal: gait normal, strength equal bilaterally - Psychiatric Psychiatric: appropriate mood/affect, intact judgment & insight - Neurologic Neurologic: CNII-XII intact, moves all extremities Results - Labs CBC & Chem 7: 05/01/22 19:48 05/01/22 19:48 Labs: Laboratory Last Values WBC 6.2 K/mm3 (4.5-11.0) 05/01/22 19:48 RBC 4.45 M/mm3 (3.65-5.03) 05/01/22 19:48 Hgb 13.4 gm/dl (11.8-15.2) 05/01/22 19:48 Hct 39.1 % (35.5-45.6) 05/01/22 19:48 MCV 88 fl (84-94) 05/01/22 19:48 MCH 30 pg (28-32) 05/01/22 19:48 MCHC 34 % (32-34) 05/01/22 19:48 RDW 14.7 % (13.2-15.2) 05/01/22 19:48 Plt Count 134 K/mm3 (140-440) L 05/01/22 19:48 Lymph % (Auto) 36.1 % (13.4-35.0) H 05/01/22 19:48 [place] % (Auto) 9.7 % (0.0-7.3) H 05/01/22 19:48 Eos % (Auto) 0.8 % (0.0-4.3) 05/01/22 19:48 Baso % (Auto) 0.5 % (0.0-1.8) 05/01/22 19:48 Lymph # (Auto) 2.2 K/mm3 (1.2-5.4) 05/01/22 19:48 [place] # (Auto) 0.6 K/mm3 (0.0-0.8) 05/01/22 19:48 Eos # (Auto) 0.0 K/mm3 (0.0-0.4) 05/01/22 19:48 Baso # (Auto) 0.0 K/mm3 (0.0-0.1) 05/01/22 19:48 Seg Neutrophils % 52.9 % (40.0-70.0) 05/01/22 19:48 Seg Neutrophils # 3.3 K/mm3 (1.8-7.7) 05/01/22 19:48 Sodium 143 mmol/L (137-145) 05/01/22 19:48 Potassium 3.2 mmol/L (3.6-5.0) L 05/01/22 19:48 Chloride 100.0 mmol/L (98-107) 05/01/22 19:48 Carbon Dioxide 31 mmol/L (22-30) H 05/01/22 19:48 Anion Gap 15 mmol/L 05/01/22 19:48 BUN 6 mg/dL (9-20) L 05/01/22 19:48 Creatinine 0.9 mg/dL (0.8-1.3) 05/01/22 19:48 Estimated GFR > 60 ml/min 05/01/22 19:48 BUN/Creatinine Ratio 7 % 05/01/22 19:48 Glucose 115 mg/dL (75-100) H 05/01/22 19:48 Calcium 9.8 mg/dL (8.4-10.2) 05/01/22 19:48 Total Bilirubin 0.50 mg/dL (0.1-1.2) 05/01/22 19:48 AST 34 units/L (5-40) 05/01/22 19:48 ALT 34 units/L (7-56) 05/01/22 19:48 Alkaline Phosphatase 221 units/L (35-129) H 05/01/22 19:48 Total Protein 7.3 g/dL (6.3-8.2) 05/01/22 19:48 Albumin 4.8 g/dL (3.9-5) 05/01/22 19:48 Albumin/Globulin Ratio 1.9 % 05/01/22 19:48 Salicylates < 0.3 mg/dL (2.8-20.0) L 05/01/22 19:48 Acetaminophen 5.0 ug/mL (10.0-30.0) L 05/01/22 19:48 Assessment and Plan VTE prophylaxis?: Mechanical Plan of care discussed with patient/family: Yes - Patient Problems (1) Unintentional Tylenol overdose Status: Acute Qualifiers: Encounter type: initial encounter Qualified Code(s): T39.1X1A - Poisoning by 4-Aminophenol derivatives, accidental (unintentional), initial encounter Plan to address problem: Admit the patient to the medical telemetry. NPO. D5 half-normal saline at the rate of 150 cc/h. Protonix 40 mg IV every 12 hours. GI evaluation. Recheck CBC CMP in the morning (2) Accidental ibuprofen overdose Status: Acute Qualifiers: Encounter type: initial encounter Qualified Code(s): T39.311A - Poisoning by propionic acid derivatives, accidental (unintentional), initial encounter Plan to address problem: NPO. D5 half-normal saline at the rate of 150 cc/h. Protonix 40 mg IV every 12 hours. GI evaluation. Recheck CBC CMP in the morning (3) Coffee ground emesis Status: Acute Plan to address problem: NPO. D5 half-normal saline at the rate of 150 cc/h. Protonix 40 mg IV every 12 hours. GI evaluation. Recheck CBC CMP in the morning (4) Nausea & vomiting Status: Acute Qualifiers: Vomiting type: unspecified Qualified Code(s): R11.2 - Nausea with vomiting, unspecified Plan to address problem: NPO. D5 half-normal saline at the rate of 150 cc/h. Protonix 40 mg IV every 12 hours. Zofran 4 mg IV every 6 hours as needed (5) Tobacco abuse Status: Acute Plan to address problem: Will parliamentary counsel regarding quit smoking. We will put the patient on nicotine patch. (6) DVT prophylaxis Status: Acute Plan to address problem: SCD for DVT prophylaxis. Protonix 40 mg IV every 12 hours for GI prophylaxis. Patient is a full code
[2022-05-02] MEDS: IPRATROPIUM/ALBUTEROL SULFATE 3 ML AMPUL.NEB IH SCH ×2 (02:24→11:28)
[2022-05-02 05:05] LABS: Basophils % (Auto) 0.5 % (0.0-1.8); Eosinophils # (Auto) 0.1 K/mm3 (0.0-0.4); Eosinophils % (Auto) 1.6 % (0.0-4.3); Hematocrit 38.1 % (35.5-45.6); Hemoglobin 12.5 gm/dl (11.8-15.2); Lymphocytes # (Auto) 2.2 K/mm3 (1.2-5.4); Mean Corpuscular HGB Conc 33 % (32-34); Mean Corpuscular Volume 89 fl (84-94); Monocytes # (Auto) 0.8 K/mm3 (0.0-0.8); Monocytes % (Auto) 13.5 % (0.0-7.3); Platelet Count 132 K/mm3 (140-440); Red Blood Count 4.29 M/mm3 (3.65-5.03); Red Cell Distribution Width 14.7 % (13.2-15.2)
[2022-05-02 05:13] LABS: BUN/Creatinine Ratio 12; Blood Urea Nitrogen 7 mg/dL (9-20); Calcium 9.6 mg/dL (8.4-10.2); Hemolysis Index 11
--- NOTE | 2022-05-02 10:18 | Progress Note ---
Assessment and Plan Assessment and plan: 37-year-old male with history of tobacco abuse was brought to the emergency room because of epigastric pain and vomiting coffee-ground emesis. Patient states he vomited this morning at 9 AM. Patient states yesterday he took 12 500 mg Tylenol and 6 220 naproxen and 6 800 mg ibuprofen in order to try to alleviate his tooth pain. Patient states he saw a dentist and was given antibiotics for the tooth infection but did not get any pain medication. Patient denies alcohol use. Patient states he quit drinking a year ago. Patient states he took all his medication in hopes of alleviating his pain. Patient denies suicidal and homicidal ideation. Patient denies depression. Patient states he had no intention of harming himself just wanted to alleviate the pain. Patient states after taking all his medication he woke up this morning with an upset stomach and epigastric pain and vomited what appeared to be dark blood. Patient states that his abdominal pain has resolved. Patient states he has not vomited again. Patient denies vomiting at this time. Patient denies chest pain. Patient states his tooth pain has gotten better. Patient denies fever or chills. Patient denies diarrhea. In the emergency room patient hemoglobin is 13.4 and hematocrit 39.1, acetaminophen level is 5.2 and salicylate level is 0.3. Subsequently Case was discussed with poison control and on-call GI's were going to admit the patient we will put the patient on Protonix IV fluid GI will see the patient in the [facility] in consultation Past History Past Surgical History: No surgical history Social history: smoking, alcohol abuse Family history: no significant family history 05/02: Patient remains clinically stable no further pain nausea vomiting noted at this time. Labs are stable. I will check a repeat acetaminophen level. Awaiting official GI consultation. I did discuss with the patient and with the staff that if there is no planned procedure by GI and his acetaminophen level is normal we will likely feed him and plan to discharge today or tomorrow he verbalized understanding. I did discuss again with him about this accidental overdose he said vehemently denies any suicidal ideation. I did provide inf ormation however in case he feels like he needs any help. I recommended outpatient follow-up with the dentist to further discuss his tooth pain and again to quit smoking for which we provided 50 minutes counseling discussing the risk of continued smoking and the benefits of quitting. (1) Unintentional Tylenol overdose Status: Acute Qualifiers: Encounter type: initial encounter Qualified Code(s): T39.1X1A - Poisoning by 4-Aminophenol derivatives, accidental (unintentional), initial encounter Plan to address problem: Admit the patient to the medical telemetry. NPO. D5 half-normal saline at the rate of 150 cc/h. Protonix 40 mg IV every 12 hours. GI evaluation. Recheck CBC CMP in the morning (2) Accidental ibuprofen overdose Status: Acute Qualifiers: Encounter type: initial encounter Qualified Code(s): T39.311A - Poisoning by propionic acid derivatives, accidental (unintentional), initial encounter Plan to address problem: NPO. D5 half-normal saline at the rate of 150 cc/h. Protonix 40 mg IV every 12 hours. GI evaluation. Recheck CBC CMP in the morning (3) Coffee ground emesis Status: Acute Plan to address problem: NPO. D5 half-normal saline at the rate of 150 cc/h. Protonix 40 mg IV every 12 hours. GI evaluation. Recheck CBC CMP in the morning (4) Nausea & vomiting Status: Acute Qualifiers: Vomiting type: unspecified Qualified Code(s): R11.2 - Nausea with vomiting, unspecified Plan to address problem: NPO. D5 half-normal saline at the rate of 150 cc/h. Protonix 40 mg IV every 12 hours. Zofran 4 mg IV every 6 hours as needed (5) Tobacco abuse Status: Acute Plan to address problem: Will estate planning counselor regarding quit smoking. We will put the patient on nicotine patch. (6) DVT prophylaxis Status: Acute Plan to address problem: SCD for DVT prophylaxis. Protonix 40 mg IV every 12 hours for GI prophylaxis. Patient is a full code History Interval history: Patient seen and examined today no new complaints. States that his abdomen is improving. Denies any further nausea or vomiting at this time Hospitalist Physical - Physical exam Narrative exam: VITAL SIGNS: Reviewed. GENERAL: The patient appears normally developed, Vital signs as documented. HEAD: No signs of head trauma. EYES: Pupils are equal. Extraocular motions intact. EARS: Hearing grossly intact. MOUTH: Oropharynx is normal. NECK: No adenopathy, no JVD. CHEST: Chest with clear breath sounds bilaterally. No wheezes, rales, or rhonchi. CARDIAC: Regular rate and rhythm. S1 and S2, without murmurs, gallops, or rubs. VASCULAR: No Edema. Peripheral pulses normal and equal in all extremities. ABDOMEN: Soft, non tender and non distended. No rebound or guarding, and no masses palpated. Bowel Sounds normal. MUSCULOSKELETAL: Good range of motion of all major joints. Extremities without clubbing, cyanosis or edema. NEUROLOGIC EXAM: Alert and oriented x 3 No focal sensory or strength deficits. Speech normal. Follows commands. PSYCHIATRIC: Mood normal. SKIN: detail exam as documented in skin assessment - Constitutional Vitals: Temp Pulse Resp BP Pulse Ox 98.5 F 70 16 111/69 100 05/02/22 10:04 05/02/22 10:04 05/02/22 10:04 05/02/22 10:04 05/02/22 10:04 General appearance: Present: no acute distress, well-nourished Results - Labs CBC & Chem 7: 05/02/22 04:19 05/02/22 04:19 Labs: Laboratory Last Values WBC 5.7 K/mm3 (4.5-11.0) 05/02/22 04:19 RBC 4.29 M/mm3 (3.65-5.03) 05/02/22 04:19 Hgb 12.5 gm/dl (11.8-15.2) 05/02/22 04:19 Hct 38.1 % (35.5-45.6) 05/02/22 04:19 MCV 89 fl (84-94) 05/02/22 04:19 MCH 29 pg (28-32) 05/02/22 04:19 MCHC 33 % (32-34) 05/02/22 04:19 RDW 14.7 % (13.2-15.2) 05/02/22 04:19 Plt Count 132 K/mm3 (140-440) L 05/02/22 04:19 Lymph % (Auto) 39.0 % (13.4-35.0) H 05/02/22 04:19 Placer % (Auto) 13.5 % (0.0-7.3) H 05/02/22 04:19 Eos % (Auto) 1.6 % (0.0-4.3) 05/02/22 04:19 Baso % (Auto) 0.5 % (0.0-1.8) 05/02/22 04:19 Lymph # (Auto) 2.2 K/mm3 (1.2-5.4) 05/02/22 04:19 Placer # (Auto) 0.8 K/mm3 (0.0-0.8) 05/02/22 04:19 Eos # (Auto) 0.1 K/mm3 (0.0-0.4) 05/02/22 04:19 Baso # (Auto) 0.0 K/mm3 (0.0-0.1) 05/02/22 04:19 Seg Neutrophils % 45.4 % (40.0-70.0) 05/02/22 04:19 Seg Neutrophils # 2.6 K/mm3 (1.8-7.7) 05/02/22 04:19 Sodium 143 mmol/L (137-145) 05/02/22 04:19 Potassium 3.2 mmol/L (3.6-5.0) L 05/02/22 04:19 Chloride 100.8 mmol/L (98-107) 05/02/22 04:19 Carbon Dioxide 28 mmol/L (22-30) 05/02/22 04:19 Anion Gap 17 mmol/L 05/02/22 04:19 BUN 7 mg/dL (9-20) L 05/02/22 04:19 Creatinine 0.6 mg/dL (0.8-1.3) L 05/02/22 04:19 Estimated GFR > 60 ml/min 05/02/22 04:19 BUN/Creatinine Ratio 12 % 05/02/22 04:19 Glucose 104 mg/dL (75-100) H 05/02/22 04:19 Calcium 9.6 mg/dL (8.4-10.2) 05/02/22 04:19 Total Bilirubin 0.50 mg/dL (0.1-1.2) 05/01/22 19:48 AST 34 units/L (5-40) 05/01/22 19:48 ALT 34 units/L (7-56) 05/01/22 19:48 Alkaline Phosphatase 221 units/L (35-129) H 05/01/22 19:48 Total Protein 7.3 g/dL (6.3-8.2) 05/01/22 19:48 Albumin 4.8 g/dL (3.9-5) 05/01/22 19:48 Albumin/Globulin Ratio 1.9 % 05/01/22 19:48 Salicylates < 0.3 mg/dL (2.8-20.0) L 05/01/22 19:48 Acetaminophen 5.0 ug/mL (10.0-30.0) L 05/01/22 19:48 Active Medications - Current Medications Current Medications: Generic Name Dose Route Start Last Admin Trade Name Freq PRN Reason Stop Dose Admin Acetaminophen 650 mg 05/01/22 22:52 Acetaminophen 325 Mg Tab PO Q4H PRN Pain MILD(1-3)/Fever >100.5/JOVEL Albuterol 2.5 mg 05/01/22 22:52 Albuterol 2.5 Mg/3 Ml Nebu IH Q3HRT PRN Shortness Of Breath Albuterol/Ipratropium 1 ampul 05/02/22 02:00 05/02/22 02:24 Ipratropium/Albuterol Sulfate 3 Ml Ampul.Neb IH Not Given Q6HRT [facility] Dextrose/Sodium Chloride 1,000 mls @ 150 mls/hr 05/01/22 23:00 D5/0.45ns IV DIRECT [facility] Potassium Chloride 10 meq in 100 mls @ 100 mls/hr 05/02/22 10:00 Kcl 10meq/100ml IV 05/02/22 11:59 Q1H [facility] Morphine Sulfate 2 mg 05/01/22 22:52 Morphine 2 Mg/1 Ml Inj IV Q4H PRN Pain, Moderate (4-6) Morphine Sulfate 4 mg 05/01/22 22:52 Morphine 4 Mg/1 Ml Inj IV Q4H PRN Pain , Severe (7-10) Ondansetron HCl 4 mg 05/01/22 22:52 Ondansetron 4 Mg/2 Ml Inj IV Q8H PRN Nausea And Vomiting Pantoprazole Sodium 40 mg 05/02/22 10:00 Pantoprazole 40 Mg Inj IV BID [facility] Penicillin V Potassium 250 mg 05/02/22 10:00 Penicillin V Potassium 250 Mg Tab PO QID [facility] Protocol Sodium Chloride 10 ml 05/02/22 10:00 Sodium Chloride 0.9% 10 Ml Flush Syringe IV BID [facility] Sodium Chloride 10 ml 05/01/22 22:52 Sodium Chloride 0.9% 10 Ml Flush Syringe IV PRN PRN LINE FLUSH
[2022-05-02] MEDS: D5W/0.45% NACL 1,000 ML IV SCH ×3 (11:05→23:55)
[2022-05-02] MEDS: PANTOPRAZOLE 40 MG INJ IV SCH ×2 (11:06→22:14)
[2022-05-02] MEDS: PENICILLIN V POTASSIUM 250 MG TAB PO SCH ×4 (11:11→22:13)
[2022-05-02 11:47] LABS: INR 0.85 (0.87-1.13)
--- NOTE | 2022-05-02 11:52 | Electrocardiograph Report ---
[facility] Test Date: 2022-05-01 Test Time: 18:43:37 Pat Name: SULAIMAN BRIAN Department: Room: A492 1 Gender: M [employer]: [employer] : 1985 Requested By: JAY LEONARDO III Order Number: [id number] Reading MD: Derek Chadwick Measurements Intervals [place] Rate: 88 P: 58 VT: 149 QRS: 58 QRSD: 95 T: 30 QT: 356 QTc: 432 Interpretive Statements Sinus rhythm Minimal ST depression, diffuse leads Compared to ECG 02/05/2021 15:29:02 ST (T wave) deviation now present Sinus tachycardia no longer present Electronically Signed On 05-02-2022 11:52:32 EDT by Derek Chadwick
[2022-05-02 12:17] LABS: Alanine Aminotransferase 27 units/L (7-56); Albumin 4.3 g/dL (3.9-5)
--- NOTE | 2022-05-02 12:19 | Gastroenterology Consultation ---
History of Present Illness - Reason for Consult Consult date: 05/02/22 gi bleed Requesting physician: KHURRAM NORRIS - History of Present Illness This is a 37-year-old male with history of tobacco use presenting to the emergency room overnight for epigastric pain and vomiting with coffee-ground emesis. GI consulted for evaluation for GI bleeding. Patient reports having severe tooth pain with impacted wisdom tooth. Patient reports taking 12 of 5 mg Tylenol and 6 of 220 mg naproxen and 6 of 800 mg ibuprofen over the course of 1 to 2 days starting . He woke up yesterday with epigastric pain and nausea vomiting. Reports having coffee- ground dark bloody emesis. Last episode was yesterday morning. Denies any blood in his stool, melena. Last bowel movement was Wednesday. In the emergency room patient noted to have hemoglobin normal at 13.4. Acet aminophen level of 5.2. ER reached out to poison control. Patient was also started on Protonix IV. Patient this morning reports his abdominal pain has resolved. Has not had any more nausea vomiting episode today. Patient denies any recent alcohol use. Denies any suicidal attempt. No prior GI bleeding history. No prior EGD or colonoscopy. Medication list reviewed. Past History Past Surgical History: No surgical history Social history: smoking, alcohol abuse Family history: no significant family history Medications and Allergies Allergies Allergy/AdvReac Type Severity Reaction Status Date / Time No Known Allergies Allergy Verified 05/01/22 18:39 Home Medications Medication Instructions Recorded Confirmed Last Taken Type RX: busPIRone [Buspar] 10 mg PO BID #60 tab 11/05/21 Unknown Rx RX: hydrOXYzine PAMOATE [Vistaril] 25 mg PO BID PRN #60 capsule 11/05/21 Unknown Rx RX: Penicillin Vk [Veetids TAB] 250 mg PO QID 7 Days 04/30/22 Unknown Rx RX: traMADoL [Ultram 50 MG tab] 50 mg PO Q4HR PRN #10 tablet 04/30/22 Unknown Rx Ondansetron [Zofran Odt] 4 mg PO Q8HR #30 tab.rapdis 05/02/22 Unknown Rx RX: Famotidine [Pepcid] 10 mg PO BID #30 tablet 05/02/22 Unknown Rx Active Meds: Active Medications Acetaminophen (Acetaminophen 325 Mg Tab) 650 mg PO Q4H PRN PRN Reason: Pain MILD(1-3)/Fever >100.5/JOVEL Albuterol (Albuterol 2.5 Mg/3 Ml Nebu) 2.5 mg IH Q3HRT PRN PRN Reason: Shortness Of Breath Dextrose/Sodium Chloride (D5/0.45ns) 1,000 mls @ 150 mls/hr IV DIRECT [facility] Last Admin: 05/02/22 11:05 Dose: 150 mls/hr Morphine Sulfate (Morphine 2 Mg/1 Ml Inj) 2 mg IV Q4H PRN PRN Reason: Pain, Moderate (4-6) Morphine Sulfate (Morphine 4 Mg/1 Ml Inj) 4 mg IV Q4H PRN PRN Reason: Pain , Severe (7-10) Ondansetron HCl (Ondansetron 4 Mg/2 Ml Inj) 4 mg IV Q8H PRN PRN Reason: Nausea And Vomiting Pantoprazole Sodium (Pantoprazole 40 Mg Inj) 40 mg IV BID [facility] Last Admin: 05/02/22 11:06 Dose: 40 mg Penicillin V Potassium (Penicillin V Potassium 250 Mg Tab) 250 mg PO QID [facility]; Protocol Stop: 05/08/22 22:01 Last Admin: 05/02/22 11:11 Dose: 250 mg Potassium Chloride (Potassium Chloride Er 20 Meq Tab) 40 meq PO ONCE ONE Stop: 05/02/22 12:31 Last Admin: 05/02/22 12:07 Dose: 40 meq Sodium Chloride (Sodium Chloride 0.9% 10 Ml Flush Syringe) 10 ml IV BID [facility] Last Admin: 05/02/22 11:05 Dose: 10 ml Sodium Chloride (Sodium Chloride 0.9% 10 Ml Flush Syringe) 10 ml IV PRN PRN PRN Reason: LINE FLUSH Review of Systems - Review of Systems All systems: negative Constitutional: no weight loss, no weight gain Ears, Nose, Throat: no decreased hearing Cardiovascular: no chest pain Gastrointestinal: abdominal pain, nausea, vomiting, coffee ground emesis, no BRBPR, no melena, no hematochezia Neurological: no weakness Psychiatric: no anxiety Hematologic/Lymphatic: no easy bruising Allergic/Immunologic: no wheezing Exam - Constitutional Vital Signs: Temp Pulse Resp BP Pulse Ox 97.7 F 68 16 108/62 98 05/02/22 10:08 05/02/22 10:08 05/02/22 10:04 05/02/22 10:08 05/02/22 11:42 General appearance: no acute distress - EENT Eyes: EOM intact ENT: hearing intact - Neck Neck: supple - Respiratory Respiratory effort: normal - Cardiovascular Rhythm: regular Heart Sounds: Present: S1 & S2 - Gastrointestinal General gastrointestinal: Present: soft, non-tender, non-distended - Integumentary Integumentary: Present: clear, warm - Neurologic Neurological: alert and oriented x3 - Psychiatric Psychiatric: appropriate mood/affect - Labs CBC & Chem 7: 05/02/22 04:19 05/02/22 04:19 Lab Results: Laboratory Results - last 24 hr 05/01/22 05/01/22 05/01/22 19:48 19:48 19:48 WBC RBC Hgb Hct MCV MCH MCHC RDW Plt Count Lymph % (Auto) Glynn % (Auto) Eos % (Auto) Baso % (Auto) Lymph # (Auto) Glynn # (Auto) Eos # (Auto) Baso # (Auto) Seg Neutrophils % Seg Neutrophils # PT INR Sodium 143 Potassium 3.2 L Chloride 100.0 Carbon Dioxide 31 H Anion Gap 15 BUN 6 L Creatinine 0.9 Estimated GFR > 60 BUN/Creatinine Ratio 7 Glucose 115 H Calcium 9.8 Total Bilirubin 0.50 AST 34 ALT 34 Alkaline Phosphatase 221 H Total Protein 7.3 Albumin 4.8 Albumin/Globulin Ratio 1.9 Salicylates < 0.3 L Acetaminophen 5.0 L 05/01/22 05/02/22 05/02/22 19:48 04:19 04:19 WBC 6.2 5.7 RBC 4.45 4.29 Hgb 13.4 12.5 Hct 39.1 38.1 MCV 88 89 MCH 30 29 MCHC 34 33 RDW 14.7 14.7 Plt Count 134 L 132 L Lymph % (Auto) 36.1 H 39.0 H Glynn % (Auto) 9.7 H 13.5 H Eos % (Auto) 0.8 1.6 Baso % (Auto) 0.5 0.5 Lymph # (Auto) 2.2 2.2 Glynn # (Auto) 0.6 0.8 Eos # (Auto) 0.0 0.1 Baso # (Auto) 0.0 0.0 Seg Neutrophils % 52.9 45.4 Seg Neutrophils # 3.3 2.6 PT INR Sodium 143 Potassium 3.2 L Chloride 100.8 Carbon Dioxide 28 Anion Gap 17 BUN 7 L Creatinine 0.6 L Estimated GFR > 60 BUN/Creatinine Ratio 12 Glucose 104 H Calcium 9.6 Total Bilirubin AST ALT Alkaline Phosphatase Total Protein Albumin Albumin/Globulin Ratio Salicylates Acetaminophen 05/02/22 05/02/22 10:41 10:41 WBC RBC Hgb Hct MCV MCH MCHC RDW Plt Count Lymph % (Auto) Glynn % (Auto) Eos % (Auto) Baso % (Auto) Lymph # (Auto) Glynn # (Auto) Eos # (Auto) Baso # (Auto) Seg Neutrophils % Seg Neutrophils # PT 12.8 INR 0.85 L Sodium Potassium Chloride Carbon Dioxide Anion Gap BUN Creatinine Estimated GFR BUN/Creatinine Ratio Glucose Calcium Total Bilirubin AST ALT Alkaline Phosphatase Total Protein Albumin Albumin/Globulin Ratio Salicylates Acetaminophen 5.0 L Assessment and Plan # Coffee ground emesis # Epigastric pain -In the setting of overuse of NSAIDs with naproxen and ibuprofen. -Hemoglobin at 13 down to 12 range overnight. -Remains hemodynamically stable. -No signs of active GI bleeding at this time. -Differentials including gastritis, esophagitis, peptic ulcer disease. rec -Continue with Protonix IV twice daily. -Monitor H&H serially and transfuse as needed with hemoglobin goal above 7. -Okay to have clear liquids diet today. -We will plan for EGD tentatively on Wednesday based on clinical course. -Discussed avoiding NSAID use. #Acetaminophen overdose -Acetaminophen level low at 5 -Liver enzymes normal except for alkaline phosphatase at 200s. Pending repeat labs today. -INR normal. -ER discussed with poison control overnight. -Monitor liver enzymes and INR. Discussed recommendations with IMS team. - Patient Problems (1) Coffee ground emesis Current Visit: Yes Status: Acute (2) Epigastric pain Current Visit: Yes Status: Acute (3) Nausea & vomiting Current Visit: Yes Status: Acute
[2022-05-02 12:23] LABS: Bilirubin,Direct < 0.2 mg/dL (0-0.2)
[2022-05-02] MEDS ORDERED: POTASSIUM CHLORIDE ER 20 MEQ TAB PO ONE (12:30)
[2022-05-02] MEDS: POTASSIUM CHLORIDE 10 MEQ 10 MEQ/100 ML BAG IV SCH ×2 (14:53→14:54)
[2022-05-02 15:30] LABS: Amphetamine Screen,Urine PRESUMPTIVE NEGATIVE; Benzodiazepines Screen,Urine PRESUMPTIVE NEGATIVE; Cannabinoid Screen,Urine PRESUMPTIVE NEGATIVE; Cocaine Screen,Urine PRESUMPTIVE NEGATIVE; Methadone Screen,Urine PRESUMPTIVE NEGATIVE; Opiate Screen,Urine PRESUMPTIVE NEGATIVE
[2022-05-02] MEDS: MORPHINE 2 MG/1 ML INJ IV PRN (22:15)
[2022-05-03 06:22] LABS: Hematocrit 34.2 % (35.5-45.6); Hemoglobin 11.5 gm/dl (11.8-15.2); Mean Corpuscular HGB Conc 34 % (32-34); Mean Corpuscular Volume 89 fl (84-94); Platelet Count 123 K/mm3 (140-440); Red Blood Count 3.85 M/mm3 (3.65-5.03); Red Cell Distribution Width 14.7 % (13.2-15.2)
[2022-05-03 06:44] LABS: Alanine Aminotransferase 21 units/L (7-56); Albumin 3.8 g/dL (3.9-5); Blood Urea Nitrogen 6 mg/dL (9-20); Calcium 9.1 mg/dL (8.4-10.2); Hemolysis Index 3
[2022-05-03 06:46] LABS: BUN/Creatinine Ratio 10
[2022-05-03] MEDS: PANTOPRAZOLE 40 MG INJ IV SCH ×2 (09:00→22:44)
[2022-05-03] MEDS: PENICILLIN V POTASSIUM 250 MG TAB PO SCH ×4 (09:00→23:45)
[2022-05-03] MEDS ORDERED: POTASSIUM CHLORIDE ER 20 MEQ TAB PO SCH (09:00)
[2022-05-03] MEDS: MORPHINE 2 MG/1 ML INJ IV PRN (09:49)
[2022-05-03] MEDS: D5W/0.45% NACL 1,000 ML IV SCH ×3 (09:49→20:48)
--- NOTE | 2022-05-03 09:59 | Progress Note ---
Assessment and Plan Assessment and plan: 37-year-old male with history of tobacco abuse was brought to the emergency room because of epigastric pain and vomiting coffee-ground emesis. Patient states he vomited this morning at 9 AM. Patient states yesterday he took 12 500 mg Tylenol and 6 220 naproxen and 6 800 mg ibuprofen in order to try to alleviate his tooth pain. Patient states he saw a dentist and was given antibiotics for the tooth infection but did not get any pain medication. Patient denies alcohol use. Patient states he quit drinking a year ago. Patient states he took all his medication in hopes of alleviating his pain. Patient denies suicidal and homicidal ideation. Patient denies depression. Patient states he had no intention of harming himself just wanted to alleviate the pain. Patient states after taking all his medication he woke up this morning with an upset stomach and epigastric pain and vomited what appeared to be dark blood. Patient states that his abdominal pain has resolved. Patient states he has not vomited again. Patient denies vomiting at this time. Patient denies chest pain. Patient states his tooth pain has gotten better. Patient denies fever or chills. Patient denies diarrhea. In the emergency room patient hemoglobin is 13.4 and hematocrit 39.1, acetaminophen level is 5.2 and salicylate level is 0.3. Subsequently Case was discussed with poison control and on-call GI's were going to admit the patient we will put the patient on Protonix IV fluid GI will see the patient in the [facility] in consultation Past History Past Surgical History: No surgical history Social history: smoking, alcohol abuse Family history: no significant family history 05/02: Patient remains clinically stable no further pain nausea vomiting noted at this time. Labs are stable. I will check a repeat acetaminophen level. Awaiting official GI consultation. I did discuss with the patient and with the staff that if there is no planned procedure by GI and his acetaminophen level is normal we will likely feed him and plan to discharge today or tomorrow he verbalized understanding. I did discuss again with him about this accidental overdose he said vehemently denies any suicidal ideation. I did provide inf ormation however in case he feels like he needs any help. I recommended outpatient follow-up with the dentist to further discuss his tooth pain and again to quit smoking for which we provided 50 minutes counseling discussing the risk of continued smoking and the benefits of quitting. 05/03: Patient seen and examined today he would rather stay and have endoscopy done. While he has not had any further vomiting his hemoglobin did drop slightly to 11.4 he also does have mild thrombocytopenia. We will keep n.p.o. after midnight. (1) Unintentional Tylenol overdose Status: Acute Qualifiers: Encounter type: initial encounter Qualified Code(s): T39.1X1A - Poisoning by 4-Aminophenol derivatives, accidental (unintentional), initial encounter Plan to address problem: Admit the patient to the medical telemetry. NPO. D5 half-normal saline at the rate of 150 cc/h. Protonix 40 mg IV every 12 hours. GI evaluation. Recheck CBC CMP in the morning (2) Accidental ibuprofen overdose Status: Acute Qualifiers: Encounter type: initial encounter Qualified Code(s): T39.311A - Poisoning by propionic acid derivatives, accidental (unintentional), initial encounter Plan to address problem: NPO. D5 half-normal saline at the rate of 150 cc/h. Protonix 40 mg IV every 12 hours. GI evaluation. Recheck CBC CMP in the morning (3) Coffee ground emesis Status: Acute Plan to address problem: NPO. D5 half-normal saline at the rate of 150 cc/h. Protonix 40 mg IV every 12 hours. GI evaluation. Recheck CBC CMP in the morning (4) Nausea & vomiting Status: Acute Qualifiers: Vomiting type: unspecified Qualified Code(s): R11.2 - Nausea with vomiting, unspecified Plan to address problem: NPO. D5 half-normal saline at the rate of 150 cc/h. Protonix 40 mg IV every 12 hours. Zofran 4 mg IV every 6 hours as needed (5) Tobacco abuse Status: Acute Plan to address problem: Will mental health counselor regarding quit smoking. We will put the patient on nicotine patch. (6) DVT prophylaxis Status: Acute Plan to address problem: SCD for DVT prophylaxis. Protonix 40 mg IV every 12 hours for GI prophylaxis. Patient is a full code History Interval history: Patient seen and examined today no new complaints. States that his abdomen is improving. Denies any further nausea or vomiting at this time Hospitalist Physical - Physical exam Narrative exam: VITAL SIGNS: Reviewed. GENERAL: The patient appears normally developed, Vital signs as documented. HEAD: No signs of head trauma. EYES: Pupils are equal. Extraocular motions intact. EARS: Hearing grossly intact. MOUTH: Oropharynx is normal. NECK: No adenopathy, no JVD. CHEST: Chest with clear breath sounds bilaterally. No wheezes, rales, or rhonchi. CARDIAC: Regular rate and rhythm. S1 and S2, without murmurs, gallops, or rubs. VASCULAR: No Edema. Peripheral pulses normal and equal in all extremities. ABDOMEN: Soft, non tender and non distended. No rebound or guarding, and no masses palpated. Bowel Sounds normal. MUSCULOSKELETAL: Good range of motion of all major joints. Extremities without clubbing, cyanosis or edema. NEUROLOGIC EXAM: Alert and oriented x 3 No focal sensory or strength deficits. Speech normal. Follows commands. PSYCHIATRIC: Mood normal. SKIN: detail exam as documented in skin assessment - Constitutional Vitals: Temp Pulse Resp BP Pulse Ox 97.8 F 57 L 18 98/62 100 05/03/22 04:59 05/03/22 04:59 05/03/22 04:59 05/03/22 04:59 05/03/22 04:59 General appearance: Present: no acute distress, well-nourished Results - Labs CBC & Chem 7: 05/03/22 05:56 05/03/22 05:56 Labs: Laboratory Last Values WBC 5.6 K/mm3 (4.5-11.0) 05/03/22 05:56 RBC 3.85 M/mm3 (3.65-5.03) 05/03/22 05:56 Hgb 11.5 gm/dl (11.8-15.2) L 05/03/22 05:56 Hct 34.2 % (35.5-45.6) L 05/03/22 05:56 MCV 89 fl (84-94) 05/03/22 05:56 MCH 30 pg (28-32) 05/03/22 05:56 MCHC 34 % (32-34) 05/03/22 05:56 RDW 14.7 % (13.2-15.2) 05/03/22 05:56 Plt Count 123 K/mm3 (140-440) L 05/03/22 05:56 Lymph % (Auto) 39.0 % (13.4-35.0) H 05/02/22 04:19 [place] % (Auto) 13.5 % (0.0-7.3) H 05/02/22 04:19 Eos % (Auto) 1.6 % (0.0-4.3) 05/02/22 04:19 Baso % (Auto) 0.5 % (0.0-1.8) 05/02/22 04:19 Lymph # (Auto) 2.2 K/mm3 (1.2-5.4) 05/02/22 04:19 [place] # (Auto) 0.8 K/mm3 (0.0-0.8) 05/02/22 04:19 Eos # (Auto) 0.1 K/mm3 (0.0-0.4) 05/02/22 04:19 Baso # (Auto) 0.0 K/mm3 (0.0-0.1) 05/02/22 04:19 Seg Neutrophils % 45.4 % (40.0-70.0) 05/02/22 04:19 Seg Neutrophils # 2.6 K/mm3 (1.8-7.7) 05/02/22 04:19 PT 12.8 Sec. (12.2-14.9) 05/02/22 10:41 INR 0.85 (0.87-1.13) L 05/02/22 10:41 Sodium 138 mmol/L (137-145) 05/03/22 05:56 Potassium 3.5 mmol/L (3.6-5.0) L 05/03/22 05:56 Chloride 104.2 mmol/L (98-107) 05/03/22 05:56 Carbon Dioxide 25 mmol/L (22-30) 05/03/22 05:56 Anion Gap 12 mmol/L 05/03/22 05:56 BUN 6 mg/dL (9-20) L 05/03/22 05:56 Creatinine 0.6 mg/dL (0.8-1.3) L 05/03/22 05:56 Estimated GFR > 60 ml/min 05/03/22 05:56 BUN/Creatinine Ratio 10 % 05/03/22 05:56 Glucose 134 mg/dL (75-100) H 05/03/22 05:56 Calcium 9.1 mg/dL (8.4-10.2) 05/03/22 05:56 Total Bilirubin 0.30 mg/dL (0.1-1.2) 05/03/22 05:56 Direct Bilirubin < 0.2 mg/dL (0-0.2) 05/02/22 10:41 Indirect Bilirubin 0.1 mg/dL 05/02/22 10:41 AST 20 units/L (5-40) 05/03/22 05:56 ALT 21 units/L (7-56) 05/03/22 05:56 Alkaline Phosphatase 165 units/L (35-129) H 05/03/22 05:56 Total Protein 5.8 g/dL (6.3-8.2) L 05/03/22 05:56 Albumin 3.8 g/dL (3.9-5) L 05/03/22 05:56 Albumin/Globulin Ratio 1.9 % 05/03/22 05:56 Salicylates < 0.3 mg/dL (2.8-20.0) L 05/01/22 19:48 Urine Opiates Screen Presumptive negative 05/02/22 15:00 Urine Methadone Screen Presumptive negative 05/02/22 15:00 Acetaminophen 5.0 ug/mL (10.0-30.0) L 05/02/22 10:41 Ur Barbiturates Screen Presumptive negative 05/02/22 15:00 Ur Phencyclidine Scrn Presumptive negative 05/02/22 15:00 Ur Amphetamines Screen Presumptive negative 05/02/22 15:00 U Benzodiazepines Scrn Presumptive negative 05/02/22 15:00 Urine Cocaine Screen Presumptive negative 05/02/22 15:00 U Marijuana (THC) Screen Presumptive negative 05/02/22 15:00 Drugs of Abuse Note Disclamer 05/02/22 15:00 Saha/IV: Voiding Method Toilet Active Medications - Current Medications Current Medications: Generic Name Dose Route Start Last Admin Trade Name Freq PRN Reason Stop Dose Admin Acetaminophen 650 mg 05/01/22 22:52 Acetaminophen 325 Mg Tab PO Q4H PRN Pain MILD(1-3)/Fever >100.5/JOVEL Albuterol 2.5 mg 05/01/22 22:52 Albuterol 2.5 Mg/3 Ml Nebu IH Q3HRT PRN Shortness Of Breath Dextrose/Sodium Chloride 1,000 mls @ 150 mls/hr 05/01/22 23:00 05/03/22 09:49 D5/0.45ns IV 150 mls/hr DIRECT ARMIN Administration Morphine Sulfate 2 mg 05/01/22 22:52 05/03/22 09:49 Morphine 2 Mg/1 Ml Inj IV 2 mg Q4H PRN Administration Pain, Moderate (4-6) Morphine Sulfate 4 mg 05/01/22 22:52 Morphine 4 Mg/1 Ml Inj IV Q4H PRN Pain , Severe (7-10) Ondansetron HCl 4 mg 05/01/22 22:52 Ondansetron 4 Mg/2 Ml Inj IV Q8H PRN Nausea And Vomiting Pantoprazole Sodium 40 mg 05/02/22 10:00 05/02/22 22:14 Pantoprazole 40 Mg Inj IV 40 mg BID ARMIN Administration Penicillin V Potassium 250 mg 05/02/22 10:00 05/02/22 22:13 Penicillin V Potassium 250 Mg Tab PO 05/08/22 22:01 250 mg QID ARMIN Administration Protocol Potassium Chloride 40 meq 05/03/22 09:00 Potassium Chloride Er 20 Meq Tab PO 05/03/22 13:00 ONCE@0900 ARMIN Sodium Chloride 10 ml 05/02/22 10:00 05/02/22 22:14 Sodium Chloride 0.9% 10 Ml Flush Syringe IV 10 ml BID ARMIN Administration Sodium Chloride 10 ml 05/01/22 22:52 Sodium Chloride 0.9% 10 Ml Flush Syringe IV PRN PRN LINE FLUSH
--- NOTE | 2022-05-03 11:03 | Gastroenterology Progress Note ---
Assessment and Plan # Coffee ground emesis # Epigastric pain -In the setting of overuse of NSAIDs with naproxen and ibuprofen. -Hemoglobin trending down slightly to 11. -Remains hemodynamically stable. -No signs of active GI bleeding at this time. -Differentials including gastritis, esophagitis, peptic ulcer disease. rec -Continue with Protonix IV twice daily. -Monitor H&H serially and transfuse as needed with hemoglobin goal above 7. -We will plan for EGD tomorrow. Keep n.p.o. after midnight. -Discussed avoiding NSAID use. #Acetaminophen overdose -Acetaminophen level low at 5 -Liver enzymes normal except for alkaline phosphatase elevation and trending down. -INR normal. -ER discussed with poison control overnight. -Monitor liver enzymes and INR. Discussed recommendations with IMS team. - Patient Problems (1) Coffee ground emesis Current Visit: Yes Status: Acute (2) Epigastric pain Current Visit: Yes Status: Acute (3) Nausea & vomiting Current Visit: Yes Status: Acute Subjective Date of service: 05/03/22 Interval history: Reports doing well. Tolerating clear liquid diet. No abdominal pain at this time. No nausea or vomiting. No bowel movement noted. Objective - Constitutional Vitals: Temp Pulse Resp BP Pulse Ox 97.8 F 70 18 98/62 99 05/03/22 04:59 05/03/22 10:00 05/03/22 04:59 05/03/22 04:59 05/03/22 11:00 General appearance: no acute distress - EENT Eyes: EOM intact ENT: hearing intact - Neck Neck: supple - Respiratory Respiratory effort: normal - Cardiovascular Rhythm: regular Heart Sounds: Present: S1 & S2 - Gastrointestinal General gastrointestinal: Present: soft, non-tender, non-distended - Neurologic Neurological: alert and oriented x3 - Labs CBC & Chem 7: 05/03/22 05:56 05/03/22 05:56 Labs: Laboratory Results - last 24 hr 05/02/22 05/02/22 05/02/22 10:41 10:41 10:41 WBC RBC Hgb Hct MCV MCH MCHC RDW Plt Count PT 12.8 INR 0.85 L Sodium Potassium Chloride Carbon Dioxide Anion Gap BUN Creatinine Estimated GFR BUN/Creatinine Ratio Glucose Calcium Total Bilirubin 0.30 Direct Bilirubin < 0.2 Indirect Bilirubin 0.1 AST 26 ALT 27 Alkaline Phosphatase 212 H Total Protein 6.8 Albumin 4.3 Albumin/Globulin Ratio 1.7 Urine Opiates Screen Urine Methadone Screen Acetaminophen 5.0 L Ur Barbiturates Screen Ur Phencyclidine Scrn Ur Amphetamines Screen U Benzodiazepines Scrn Urine Cocaine Screen U Marijuana (THC) Screen Drugs of Abuse Note 05/02/22 05/03/22 05/03/22 15:00 05:56 05:56 WBC 5.6 RBC 3.85 Hgb 11.5 L Hct 34.2 L MCV 89 MCH 30 MCHC 34 RDW 14.7 Plt Count 123 L PT INR Sodium 138 Potassium 3.5 L Chloride 104.2 Carbon Dioxide 25 Anion Gap 12 BUN 6 L Creatinine 0.6 L Estimated GFR > 60 BUN/Creatinine Ratio 10 Glucose 134 H Calcium 9.1 Total Bilirubin 0.30 Direct Bilirubin Indirect Bilirubin AST 20 ALT 21 Alkaline Phosphatase 165 H Total Protein 5.8 L Albumin 3.8 L Albumin/Globulin Ratio 1.9 Urine Opiates Screen Presumptive negative Urine Methadone Screen Presumptive negative Acetaminophen Ur Barbiturates Screen Presumptive negative Ur Phencyclidine Scrn Presumptive negative Ur Amphetamines Screen Presumptive negative U Benzodiazepines Scrn Presumptive negative Urine Cocaine Screen Presumptive negative U Marijuana (THC) Screen Presumptive negative Drugs of Abuse Note Disclamer
[2022-05-04 06:10] LABS: Hematocrit 35.1 % (35.5-45.6); Hemoglobin 11.7 gm/dl (11.8-15.2); Mean Corpuscular HGB Conc 33 % (32-34); Mean Corpuscular Volume 89 fl (84-94); Platelet Count 132 K/mm3 (140-440); Red Blood Count 3.95 M/mm3 (3.65-5.03); Red Cell Distribution Width 14.8 % (13.2-15.2)
[2022-05-04] MEDS: D5W/0.45% NACL 1,000 ML IV SCH ×2 (07:40→23:56)
[2022-05-04] MEDS ORDERED: SODIUM CHLORIDE 0.9% 1000 ML 1,000 ML ONE (09:00)
[2022-05-04] MEDS ORDERED: fentaNYL 100 MCG/2 ML INJ ONE (09:02)
[2022-05-04] MEDS ORDERED: propofoL 200 MG/20 ML VIAL IV ONE (09:02)
--- NOTE | 2022-05-04 09:21 | Anesthesia Consultation ---
Anesthesia Consult and Med Hx - Airway Anesthetic Teeth Evaluation: Poor (Multiple missing teeth) ROM Head & Neck: Adequate Mental/Hyoid Distance: Adequate Mallampati Class: Class II Intubation Access Assessment: Probably Good - Pulmonary Exam CTA: Yes - Pre-Operative Health Status ASA Pre-Surgery Classification: ASA2 Proposed Anesthetic Plan: MAC - Pulmonary Hx Smoking: Yes Hx Asthma: No Hx Respiratory Symptoms: No - Cardiovascular System Hx Hypertension: No Hx Heart Attack/AMI: No Hx Angina: No - Central Nervous System Hx Neuromuscular Disorder: No Hx Seizures: No Hx Psychiatric Problems: No - Gastrointestinal Hx Ulcer: Yes (GI bleed; acciental Ibuprofen and Tylenol overdose) - Endocrine Hx Renal Disease: No Hx Liver Disease: Yes (Liver steatosis) Hx Insulin Dependent Diabetes: No Hx Non-Insulin Dependent Diabetes: No Hx Thyroid Disease: No - Hematic Hx Anemia: Yes - Other Systems Hx Alcohol Use: Yes Hx Substance Use: No Hx Obesity: No
--- NOTE | 2022-05-04 09:22 | Anesthesia Day of Surgery ---
Anesthesia Day of Surgery - Day of Surgery Patient Examined: Yes Patient H&P Reviewed: Yes Patient is NPO: Yes Beta Blockers: No Cardiac Clearance: No Pulmonary Clearance: No
--- NOTE | 2022-05-04 09:51 | Operative Report ---
Operative Report Operative Report: Date: 05/04/2022 Endoscopist: Parvez Vigil MD (Jenny) EGD REPORT PREOPERATIVE DIAGNOSIS: Hematemesis with coffee-ground emesis, abdominal pain, acute blood loss anemia POSTOPERATIVE DIAGNOSIS: Antral ulcer, gastritis, gastric erosions ESTIMATED BLOOD LOSS: Minimal DESCRIPTION OF PROCEDURE: A high-resolution EGD scope was passed through the oropharynx, esophagus, stomach, and second portion of duodenum. The scope was carefully withdrawn. Retroflexion was performed in the stomach. At the end of the procedure, the scope was cleaned using normal technique. Vital signs monitored continuously throughout. SEDATION: Provided by Anesthesiology Services. COMPLICATIONS: None. FINDINGS: 1. Normal esophagus exam without any signs of esophagitis, varices, stenosis. 2. A clean-based linear ulcer with surrounding erythema measuring about 8 mm in the antrum without any high risk stigmata. No signs of active bleeding. Biopsies obtained from the edge of the ulcer. 3. Diffuse gastritis in the antrum and gastric body with scattered few nonbleeding superficial small erosions in the antrum. Biopsies obtained from the antrum and body. 4. Normal retroflexion view of cardia. 5. Normal duodenal exam. RECOMMENDATIONS: 1. Resume clear liquid diet. Advance as tolerated. 2. Monitor H&H. 3. Continue with PPI IV. Can transition to p.o. twice daily dosing tomorrow if no signs of bleeding for 8 weeks total. 4. Avoid NSAIDs 5. Follow-up on pathology results. 6. Follow-up in GI clinic outpatient. Will need repeat EGD in about 8 weeks to ensure ulcer healing. We will sign off. Please call back as needed. Parvez Vigil MD (Jenny) [facility]
[2022-05-04] MEDS: PENICILLIN V POTASSIUM 250 MG TAB PO SCH ×3 (10:48→19:00)
[2022-05-04] MEDS: PANTOPRAZOLE 40 MG INJ IV SCH ×2 (10:48→23:57)
--- NOTE | 2022-05-04 13:25 | Post Anesthesia Evaluation ---
- Post Anesthesia Evaluation Patient Participated: Yes Airway Patent: Yes Stable Respiratory Function: Yes Nausea/Vomiting: No Temp > 96.8F: Yes Pain Manageable: Yes Adequeate Hydration: Yes Anesthesia Complications: No
--- NOTE | 2022-05-04 15:50 | Progress Note ---
Assessment and Plan Assessment and plan: 37-year-old male with history of tobacco abuse was brought to the emergency room because of epigastric pain and vomiting coffee-ground emesis. Patient states he vomited this morning at 9 AM. Patient states yesterday he took 12 500 mg Tylenol and 6 220 naproxen and 6 800 mg ibuprofen in order to try to alleviate his tooth pain. Patient states he saw a dentist and was given antibiotics for the tooth infection but did not get any pain medication. Patient denies alcohol use. Patient states he quit drinking a year ago. Patient states he took all his medication in hopes of alleviating his pain. Patient denies suicidal and homicidal ideation. Patient denies depression. Patient states he had no intention of harming himself just wanted to alleviate the pain. Patient states after taking all his medication he woke up this morning with an upset stomach and epigastric pain and vomited what appeared to be dark blood. Patient states that his abdominal pain has resolved. Patient states he has not vomited again. Patient denies vomiting at this time. Patient denies chest pain. Patient state s his tooth pain has gotten better. Patient denies fever or chills. Patient denies diarrhea. In the emergency room patient hemoglobin is 13.4 and hematocrit 39.1, acetaminophen level is 5.2 and salicylate level is 0.3. Subsequently Case was discussed with poison control and on-call GI's were going to admit the patient we will put the patient on Protonix IV fluid GI will see the patient in the morning in consultation Past History Past Surgical History: No surgical history Social history: smoking, alcohol abuse Family history: no significant family history 05/02: Patient remains clinically stable no further pain nausea vomiting noted at this time. Labs are stable. I will check a repeat acetaminophen level. Awaiting official GI consultation. I did discuss with the patient and with the staff that if there is no planned procedure by GI and his acetaminophen level is normal we will likely feed him and plan to discharge today or tomorrow he verbalized understanding. I did discuss again with him about this accidental overdose he said vehemently denies any suicidal ideation. I did provide in formation however in case he feels like he needs any help. I recommended outpatient follow-up with the dentist to further discuss his tooth pain and again to quit smoking for which we provided 50 minutes counseling discussing the risk of continued smoking and the benefits of quitting. 05/03: Patient seen and examined today he would rather stay and have endoscopy done. While he has not had any further vomiting his hemoglobin did drop slightly to 11.4 he also does have mild thrombocytopenia. We will keep n.p.o. after midnight. 05/04: Endoscopy completed. Findings of clean based linear ulcer in antrum and diffuse gastritis with nonbleeding superficial erosions in antrum. Per GI, will continue PPI IV. Regular diet ordered for tomorrow AM. If patient tolerates, will likely d/c home tomorrow Am. (1) Unintentional Tylenol overdose Status: Acute Qualifiers: Encounter type: initial encounter Qualified Code(s): T39.1X1A - Poisoning by 4-Aminophenol derivatives, accidental (unintentional), initial encounter Plan to address problem: Admit the patient to the medical telemetry. NPO. D5 half-normal saline at the rate of 150 cc/h. Protonix 40 mg IV every 12 hours. GI evaluation. Recheck CBC CMP in the morning (2) Accidental ibuprofen overdose Status: Acute Qualifiers: Encounter type: initial encounter Qualified Code(s): T39.311A - Poisoning by propionic acid derivatives, accidental (unintentional), initial encounter Plan to address problem: NPO. D5 half-normal saline at the rate of 150 cc/h. Protonix 40 mg IV every 12 hours. GI evaluation. Recheck CBC CMP in the morning (3) Coffee ground emesis Status: Acute Plan to address problem: NPO. D5 half-normal saline at the rate of 150 cc/h. Protonix 40 mg IV every 12 hours. GI evaluation. Recheck CBC CMP in the morning (4) Nausea & vomiting Status: Acute Qualifiers: Vomiting type: unspecified Qualified Code(s): R11.2 - Nausea with vomiting, unspecified Plan to address problem: NPO. D5 half-normal saline at the rate of 150 cc/h. Protonix 40 mg IV every 12 hours. Zofran 4 mg IV every 6 hours as needed (5) Tobacco abuse Status: Acute Plan to address problem: Will behavioral health counselor regarding quit smoking. We will put the patient on nicotine patch. (6) DVT prophylaxis Status: Acute Plan to address problem: SCD for DVT prophylaxis. Protonix 40 mg IV every 12 hours for GI prophylaxis. Patient is a full code History Interval history: No overnight events. Patient going to endoscopy this AM. Hospitalist Physical - Physical exam Narrative exam: VITAL SIGNS: Reviewed. GENERAL: The patient appears normally developed, Vital signs as documented. HEAD: No signs of head trauma. EYES: Pupils are equal. Extraocular motions intact. EARS: Hearing grossly intact. MOUTH: Oropharynx is normal. NECK: No adenopathy, no JVD. CHEST: Chest with clear breath sounds bilaterally. No wheezes, rales, or rho nchi. CARDIAC: Regular rate and rhythm. S1 and S2, without murmurs, gallops, or rubs. VASCULAR: No Edema. Peripheral pulses normal and equal in all extremities. ABDOMEN: Soft, non tender and non distended. No rebound or guarding, and no masses palpated. Bowel Sounds normal. MUSCULOSKELETAL: Good range of motion of all major joints. Extremities without clubbing, cyanosis or edema. NEUROLOGIC EXAM: Alert and oriented x 3 No focal sensory or strength deficits. Speech normal. Follows commands. PSYCHIATRIC: Mood normal. SKIN: detail exam as documented in skin assessment - Constitutional Vitals: Temp Pulse Resp BP Pulse Ox 98.1 F 57 L 13 103/65 98 05/04/22 10:15 05/04/22 10:15 05/04/22 10:15 05/04/22 10:15 05/04/22 11:00 General appearance: Present: no acute distress, well-nourished Results - Labs CBC & Chem 7: 05/04/22 05:47 05/03/22 05:56 Labs: Laboratory Last Values WBC 5.8 K/mm3 (4.5-11.0) 05/04/22 05:47 RBC 3.95 M/mm3 (3.65-5.03) 05/04/22 05:47 Hgb 11.7 gm/dl (11.8-15.2) L 05/04/22 05:47 Hct 35.1 % (35.5-45.6) L 05/04/22 05:47 MCV 89 fl (84-94) 05/04/22 05:47 MCH 30 pg (28-32) 05/04/22 05:47 MCHC 33 % (32-34) 05/04/22 05:47 RDW 14.8 % (13.2-15.2) 05/04/22 05:47 Plt Count 132 K/mm3 (140-440) L 05/04/22 05:47 Lymph % (Auto) 39.0 % (13.4-35.0) H 05/02/22 04:19 Real % (Auto) 13.5 % (0.0-7.3) H 05/02/22 04:19 Eos % (Auto) 1.6 % (0.0-4.3) 05/02/22 04:19 Baso % (Auto) 0.5 % (0.0-1.8) 05/02/22 04:19 Lymph # (Auto) 2.2 K/mm3 (1.2-5.4) 05/02/22 04:19 Real # (Auto) 0.8 K/mm3 (0.0-0.8) 05/02/22 04:19 Eos # (Auto) 0.1 K/mm3 (0.0-0.4) 05/02/22 04:19 Baso # (Auto) 0.0 K/mm3 (0.0-0.1) 05/02/22 04:19 Seg Neutrophils % 45.4 % (40.0-70.0) 05/02/22 04:19 Seg Neutrophils # 2.6 K/mm3 (1.8-7.7) 05/02/22 04:19 PT 12.8 Sec. (12.2-14.9) 05/02/22 10:41 INR 0.85 (0.87-1.13) L 05/02/22 10:41 Sodium 138 mmol/L (137-145) 05/03/22 05:56 Potassium 3.5 mmol/L (3.6-5.0) L 05/03/22 05:56 Chloride 104.2 mmol/L (98-107) 05/03/22 05:56 Carbon Dioxide 25 mmol/L (22-30) 05/03/22 05:56 Anion Gap 12 mmol/L 05/03/22 05:56 BUN 6 mg/dL (9-20) L 05/03/22 05:56 Creatinine 0.6 mg/dL (0.8-1.3) L 05/03/22 05:56 Estimated GFR > 60 ml/min 05/03/22 05:56 BUN/Creatinine Ratio 10 % 05/03/22 05:56 Glucose 134 mg/dL (75-100) H 05/03/22 05:56 Calcium 9.1 mg/dL (8.4-10.2) 05/03/22 05:56 Total Bilirubin 0.30 mg/dL (0.1-1.2) 05/03/22 05:56 Direct Bilirubin < 0.2 mg/dL (0-0.2) 05/02/22 10:41 Indirect Bilirubin 0.1 mg/dL 05/02/22 10:41 AST 20 units/L (5-40) 05/03/22 05:56 ALT 21 units/L (7-56) 05/03/22 05:56 Alkaline Phosphatase 165 units/L (35-129) H 05/03/22 05:56 Total Protein 5.8 g/dL (6.3-8.2) L 05/03/22 05:56 Albumin 3.8 g/dL (3.9-5) L 05/03/22 05:56 Albumin/Globulin Ratio 1.9 % 05/03/22 05:56 Salicylates < 0.3 mg/dL (2.8-20.0) L 05/01/22 19:48 Urine Opiates Screen Presumptive negative 05/02/22 15:00 Urine Methadone Screen Presumptive negative 05/02/22 15:00 Acetaminophen 5.0 ug/mL (10.0-30.0) L 05/02/22 10:41 Ur Barbiturates Screen Presumptive negative 05/02/22 15:00 Ur Phencyclidine Scrn Presumptive negative 05/02/22 15:00 Ur Amphetamines Screen Presumptive negative 05/02/22 15:00 U Benzodiazepines Scrn Presumptive negative 05/02/22 15:00 Urine Cocaine Screen Presumptive negative 05/02/22 15:00 U Marijuana (THC) Screen Presumptive negative 05/02/22 15:00 Drugs of Abuse Note Disclamer 05/02/22 15:00 Saha/IV: Voiding Method Toilet Active Medications - Current Medications Current Medications: Generic Name Dose Route Start Last Admin Trade Name Freq PRN Reason Stop Dose Admin Albuterol 2.5 mg 05/01/22 22:52 Albuterol 2.5 Mg/3 Ml Nebu IH Q3HRT PRN Shortness Of Breath Dextrose/Sodium Chloride 1,000 mls @ 150 mls/hr 05/01/22 23:00 05/04/22 07:40 D5/0.45ns IV 150 mls/hr DIRECT ARMIN Administration Morphine Sulfate 2 mg 05/01/22 22:52 05/03/22 09:49 Morphine 2 Mg/1 Ml Inj IV 2 mg Q4H PRN Administration Pain, Moderate (4-6) Morphine Sulfate 4 mg 05/01/22 22:52 Morphine 4 Mg/1 Ml Inj IV Q4H PRN Pain , Severe (7-10) Ondansetron HCl 4 mg 05/01/22 22:52 Ondansetron 4 Mg/2 Ml Inj IV Q8H PRN Nausea And Vomiting Pantoprazole Sodium 40 mg 05/02/22 10:00 05/04/22 10:48 Pantoprazole 40 Mg Inj IV 40 mg BID ARMIN Administration Penicillin V Potassium 250 mg 05/02/22 10:00 05/04/22 10:48 Penicillin V Potassium 250 Mg Tab PO 05/08/22 22:01 250 mg QID ARMIN Administration Protocol Sodium Chloride 10 ml 05/02/22 10:00 05/04/22 10:48 Sodium Chloride 0.9% 10 Ml Flush Syringe IV 10 ml BID ARMNI Administration Sodium Chloride 10 ml 05/01/22 22:52 Sodium Chloride 0.9% 10 Ml Flush Syringe IV PRN PRN LINE FLUSH
[2022-05-05] MEDS: PENICILLIN V POTASSIUM 250 MG TAB PO SCH ×2 (00:02→09:48)
[2022-05-05] MEDS: MORPHINE 2 MG/1 ML INJ IV PRN (00:02)
[2022-05-05 08:45] VITALS: BP 114/67
[2022-05-05] MEDS ORDERED: PANTOPRAZOLE 40 MG TAB PO SCH (09:30)
--- NOTE | 2022-05-05 12:28 | Discharge Summary ---
Providers - Providers Date of Admission: 05/01/22 22:52 Date of discharge: 05/05/22 Attending physician: DANIA PARTIDA MD 05/01/22 22:52 Consult to Physician [CONS] Routine Comment: Consulting Provider: NEHA DE LUNA Physician Instructions: Reason For Exam: gib Primary care physician: STEAM ENGINEER Hospitalization Reason for admission: abdominal pain. Condition: Critical Hospital course: Assessment and plan: 37-year-old male with history of tobacco abuse was brought to the emergency room because of epigastric pain and vomiting coffee-ground emesis. Patient states he vomited this morning at 9 AM. Patient states yesterday he took 12 500 mg Tylenol and 6 220 naproxen and 6 800 mg ibuprofen in order to try to alleviate his tooth pain. Patient states he saw a dentist and was given antibiotics for the tooth infection but did not get any pain medication. Patient denies alcohol use. Patient states he quit drinking a year ago. Patient states he took all his medication in hopes of alleviating his pain. Patient denies suicidal and homicidal ideation. Patient denies depression. Patient states he had no intention of harming himself just wanted to alleviate the pain. Patient states after taking all his medication he woke up this morning with an upset stomach and epigastric pain and vomited what appeared to be dark blood. Patient states that his abdominal pain has resolved. Patient states he has not vomited again. Patient denies vomiting at this time. Patient denies chest pain. Patient states his tooth pain has gotten better. Patient denies fever or chills. Patient denies diarrhea. In the emergency room patient hemoglobin is 13.4 and hematocrit 39.1, a cetaminophen level is 5.2 and salicylate level is 0.3. Subsequently Case was discussed with poison control and on-call GI's were going to admit the patient we will put the patient on Protonix IV fluid GI will see the patient in the morning in consultation Past History Past Surgical History: No surgical history Social history: smoking, alcohol abuse Family history: no significant family history 05/02: Patient remains clinically stable no further pain nausea vomiting noted at this time. Labs are stable. I will check a repeat acetaminophen level. Awaiting official GI consultation. I did discuss with the patient and with the staff that if there is no planned procedure by GI and his acetaminophen level is normal we will likely feed him and plan to discharge today or tomorrow he verbalized understanding. I did discuss again with him about this accidental overdose he said vehemently denies any suicidal ideation. I did provide information however in case he feels like he needs any help. I recommended outpatient follow-up with the dentist to further discuss his tooth pain and again to quit smoking for which we provided 50 minutes counseling discussing the risk of continued smoking and the benefits of quitting. 05/03: Patient seen and examined today he would rather stay and have endoscopy d one. While he has not had any further vomiting his hemoglobin did drop slightly to 11.4 he also does have mild thrombocytopenia. We will keep n.p.o. after midnight. 05/04: Endoscopy completed. Findings of clean based linear ulcer in antrum and diffuse gastritis with nonbleeding superficial erosions in antrum. Per GI, will continue PPI IV. Regular diet ordered for tomorrow AM. If patient tolerates, will likely d/c home tomorrow Am. 05/05: Tolerating diet well. no complaints of abdominal pain this AM. Will discharge home with rx for protonix, famotidine, ondansetron, and augmentin course. Advised to follow up OP with GI re: ulcer and to establish with a dentist/OMFS for impacted tooth. Follow up with PCP OP. (1) Unintentional Tylenol overdose Status: Acute Qualifiers: Encounter type: initial encounter Qualified Code(s): T39.1X1A - Poisoning by 4-Aminophenol derivatives, accidental (unintentional), initial encounter Plan to address problem: Admit the patient to the medical telemetry. NPO. D5 half-normal saline at the rate of 150 cc/h. Protonix 40 mg IV every 12 hours. GI evaluation. Recheck CBC CMP in the morning (2) Accidental ibuprofen overdose Status: Acute Qualifiers: Encounter type: initial encounter Qualified Code(s): T39.311A - Poisoning by propionic acid derivatives, accidental (unintentional), initial encounter Plan to address problem: NPO. D5 half-normal saline at the rate of 150 cc/h. Protonix 40 mg IV every 12 hours. GI evaluation. Recheck CBC CMP in the morning (3) Coffee ground emesis Status: Acute Plan to address problem: NPO. D5 half-normal saline at the rate of 150 cc/h. Protonix 40 mg IV every 12 hours. GI evaluation. Recheck CBC CMP in the morning (4) Nausea & vomiting Status: Acute Qualifiers: Vomiting type: unspecified Qualified Code(s): R11.2 - Nausea with vomiting, unspecified Plan to address problem: NPO. D5 half-normal saline at the rate of 150 cc/h. Protonix 40 mg IV every 12 hours. Zofran 4 mg IV every 6 hours as needed (5) Tobacco abuse Status: Acute Plan to address problem: Will general counselor regarding quit smoking. We will put the patient on nicotine patch. (6) DVT prophylaxis Status: Acute Plan to address problem: SCD for DVT prophylaxis. Protonix 40 mg IV every 12 hours for GI prophylaxis. Patient is a full code Disposition: 01 HOME / SELF CARE / HOMELESS Final Discharge Diagnosis (Prints w/discharge instructions): gastric ulcer Time spent for discharge: 35 Core Measure Documentation - Palliative Care Palliative Care/ Comfort Measures: Not Applicable - Core Measures Any of the following diagnoses?: none Exam - Physical Exam Narrative exam: VITAL SIGNS: Reviewed. GENERAL: The patient appears normally developed, Vital signs as documented. HEAD: No signs of head trauma. EYES: Pupils are equal. Extraocular motions intact. EARS: Hearing grossly intact. MOUTH: Oropharynx is normal. NECK: No adenopathy, no JVD. CHEST: Chest with clear breath sounds bilaterally. No wheezes, rales, or rhonchi. CARDIAC: Regular rate and rhythm. S1 and S2, without murmurs, gallops, or rubs. VASCULAR: No Edema. Peripheral pulses normal and equal in all extremities. ABDOMEN: Soft, non tender and non distended. No rebound or guarding, and no masses palpated. Bowel Sounds normal. MUSCULOSKELETAL: Good range of motion of all major joints. Extremities without clubbing, cyanosis or edema. NEUROLOGIC EXAM: Alert and oriented x 3 No focal sensory or strength deficits. Speech normal. Follows commands. PSYCHIATRIC: Mood normal. SKIN: detail exam as documented in skin assessment - Constitutional Vitals: Temp Pulse Resp BP Pulse Ox 98.9 F 55 L 18 114/67 98 05/05/22 08:14 05/05/22 08:14 05/05/22 08:14 05/05/22 08:14 05/05/22 08:14 Plan Follow up with: [facility] [Referring] - 7 Days NEHA DE LUNA MD [Staff Physician] - 7 Days Prescriptions: Amoxicillin/Potassium Clav [Augmentin 500-125 Tablet] 1 each PO BID 5 Days #10 tab Famotidine [Pepcid] 10 mg PO BID #30 tablet Pantoprazole [Protonix TAB] 40 mg PO BIDAC 30 Days #60 tablet Ondansetron [Zofran Odt] 4 mg PO Q8HR #30 tab.[email or web address]
== END 2022-05-05 14:11 | disposition home or self-care (01) | DRG 917 ==
LOC: ED 18:15 → 4A 22:52
PROVIDERS: ADMIT Hospitalist; ATTEND Internal Medicine
PROC: 0DB68ZX Excision of Stomach, Via Natural or Artificial Opening Endoscopic, Diagnostic (ICD-10-PCS; principal; 2022-05-04)
DX: T39.1X1A Poisoning by 4-Aminophenol derivatives, accidental (unintentional), initial encounter (principal); K25.4 Chronic or unspecified gastric ulcer with hemorrhage; D62 Acute posthemorrhagic anemia; F17.200 Nicotine dependence, unspecified, uncomplicated; Y92.89 Other specified places as the place of occurrence of the external cause; T39.311A Poisoning by propionic acid derivatives, accidental (unintentional), initial encounter
CPT/HCPCS: 36415; 80048; 80053; 80076; 80307; 80320; 85025; 85027; 85610; 88305; 88342; 93005; 94640; 99282; 99285; G0378; J7070; C9113; G0480; J2270; J2704; J3010; J7030